=== PATIENT | female | born 1950 | race Caucasian/White ===

== ENCOUNTER → 2018-03-16 13:46 | Outpatient (CLI) | payer MEDICARE, SELFPAY ==
--- NOTE | 2018-03-16 13:48 | DI.ECHO.S_ITS ---
[facility] +---------+ : : 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 1) Moderately dilated left ventricle with severely reduced function (EF 25- 30%). 2) Mildly enlarged right ventricle wit moderately reduced function. 3) Severely dilated left atrium and moderately to severely dilated right atrium. 4) There is moderate tricuspid regurgitation. 5) The right ventricular systolic pressure is estimated at 48 mmHg assuming a right atrial pressure of 15 mm Hg. 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 7) No prior Echo available for comparison. Attending statement: I called the patient's listed phone number is [place] and got her voicemail (didn't leave a message). I then called Dr. Romy Sotomayor to convey the critical findings as above and recommended that the patient come to [facility] for further evaluation. Procedure: A two-dimensional transthoracic echocardiogram with color flow and Doppler was performed. The study quality was technically good. There is no prior echocardiogram noted for this patient. The patient was in atrial fibrillation with heart rates between 107-168 bpm during the exam. Left Ventricle: The left ventricle is moderately dilated. There is normal left ventricular wall thickness. The ejection fraction is estimated to be 25- 30%. Left ventricular systolic function is severely reduced. There is severe global hypokinesis of the left ventricle. Diastolic function could not be accurately assessed due to atrial fibrillation. Right Ventricle: The right ventricle is mildly dilated. Right ventricular systolic function is moderately reduced. Atria: The left atrium is severely dilated. The right atrium is moderate to severely dilated. Mitral Valve: The mitral valve is normal in structure and function. There is mild mitral regurgitation. Aortic Valve: The aortic valve is trileaflet. The aortic valve opens well. There is no aortic valve stenosis. No aortic regurgitation is present. Tricuspid Valve: The tricuspid valve leaflets are thin and pliable. There is moderate tricuspid regurgitation. The right ventricular systolic pressure is estimated at 48 mmHg assuming a right atrial pressure of 15 mm Hg. Pulmonic Valve: The pulmonic valve is not well seen, but is grossly normal. There is trace pulmonic regurgitation. Great Vessels: The aortic root is mildly dilated. The ascending aorta is at the upper limits of normal in size. The IVC is dilated (diameter is greater than 2.1 cm) and it collapses less than 50% with a sniff. This suggests a high right atrial pressure of 15 mm Hg. 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 Pericardium/ Pleura There is no pericardial effusion. There is no pleural effusion. MMode/2D Measurements & Calculations LVIDd: 6.1 cm Ao root diam: 4.1 cm LVIDs: 5.4 cm Aortic Jxn: 3.3 cm FS: 10.6 % asc Aorta Diam: 3.8 cm EPSS: 1.5 cm Ao Arch Diam (Prox Trans): 3.3 cm IVSd: 0.99 cm LVPWd: 1.00 cm LV murphy. diameter/BSA (cm/m^2): 3.0 LV sys. diameter/BSA (cm/m^2): 2.7 LA dimension: 5.7 cm RA long axis: 6.7 cm LA A2 area: 40.8 cm2 RA area: 27.3 cm2 LA A4 area: 40.9 cm2 RA vol: 94.9 ml LA length (vol): 7.2 cm RA : 46.2 ml/m2 LA vol: 196.7 ml IVC diam: 2.7 cm LA vol index: 95.8 ml/m2 RVDd major: 6.2 cm RVD1 (basal): 4.0 cm RVD2 (mid): 2.9 cm Doppler Measurements & Calculations Ao V2 max: 113.6 cm/sec MV P1/2t: 46.7 msec Ao V2 mean: 80.2 cm/sec MR ERO: 0.15 cm2 Ao max P.2 mmHg Ao mean P.9 mmHg Ao V2 VTI: 22.2 cm TR max apryl: 288.8 cm/sec MV V2 mean: 52.3 cm/sec TR max P.4 mmHg MV mean P.3 mmHg PA V2 max: 78.5 cm/sec MV V2 VTI: 11.3 cm PA V2 mean: 44.3 cm/sec PA mean P.0 mmHg PA Accel Time: 0.11 sec MV P1/2t max apryl: 82.7 cm/sec MR flow rate: 58.2 cm3/sec MVA(P1/2t): 4.7 cm2 MR PISA radius: 0.49 cm Reading Physician:03:49 PM
== END ==
PROVIDERS: PCP Family Medicine; Visit Provider Family Medicine
DX: I50.9 Heart failure, unspecified (principal); I48.91 Unspecified atrial fibrillation; I07.1 Rheumatic tricuspid insufficiency
CPT/HCPCS: 93306

== ENCOUNTER → 2018-03-29 11:26 | Outpatient (CLI) | payer MEDICARE, SELFPAY ==
[2018-03-29 12:32] LABS: Alanine Aminotransferase 139 IU/L (9-52); Albumin 3.3 g/dL (3.5-5.0); Albumin Globulin Ratio 1.4 (1.0-2.8); Alkaline Phosphatase 77 U/L (38-126); Aspartate Aminotransferase 83 IU/L (14-36); BUN Creatinine Ratio 23.8 (6-22); Bilirubin Total 0.9 mg/dL (0.2-1.3); Blood Urea Nitrogen 19 mg/dL (7-17); Calcium 9.1 mg/dL (8.4-10.2); Carbon Dioxide 27 mmol/L (22-32); Chloride 105 mmol/L (98-107); Cholesterol 129 mg/dL (140-199); Estimated Glomerular Filt Rate > 60.0 mL/min (>60); Globulin 2.4 g/dL (1.7-4.1); Glucose 90 mg/dL (80-110); HDL Cholesterol 45 mg/dL (40-60); HEMOLYSIS 15 (0-50); LDL Cholesterol Calculated 62 mg/dL (<100); Potassium 4.3 mmol/L (3.4-5.1); Sodium 142 mmol/L (137-145); Total Protein 5.7 g/dL (6.3-8.2); Triglycerides 111 mg/dL (35-150)
== END ==
PROVIDERS: PCP Family Medicine; Visit Provider Internal Medicine Cardiovascular Disease
DX: I48.1 Persistent atrial fibrillation (principal); I49.3 Ventricular premature depolarization
CPT/HCPCS: 36415; 80053; 80061; 83880

== ENCOUNTER → 2018-04-19 11:47 | Outpatient (CLI) | payer MEDICARE, SELFPAY ==
--- NOTE | 2018-04-19 11:49 | DI.RAD.S_ITS ---
PROCEDURE: XR CHEST 2V INDICATIONS: Persistant cough - possible pneumonia TECHNIQUE: 2 views of the chest were acquired. COMPARISON: [facility], , CHEST 2 VIEW, 01/23/2018, 8:24. [facility], , CHEST FOR PICC PLACEMENT, 12/17/2012, 16:07. FINDINGS: Surgical changes and devices: None. Lungs and pleura: No pleural effusions or pneumothorax. Lungs are clear. Mediastinum: Mediastinal contours are normal. Heart size is at the upper limits of normal but the patient is in a relatively lordotic positioning. Bones and chest wall: No suspicious bony abnormalities. Soft tissues appear unremarkable. IMPRESSION: No pneumonia found. Large body habitus, relative lordotic positioning, heart size at the upper limits of normal. Dictated by: Joe Breen M.D. on 04/19/2018 at 12:08 Approved by: Joe Breen M.D. on 04/19/2018 at 12:08
== END ==
PROVIDERS: PCP Family Medicine; Visit Provider Physician Assistant
DX: R05 Cough (principal); R06.00 Dyspnea, unspecified
CPT/HCPCS: 71046

== ENCOUNTER → 2018-05-03 12:44 | Outpatient (CLI) | payer MEDICARE, SELFPAY | PROVIDERS: PCP Family Medicine; Visit Provider Physician Assistant | DX: R05 Cough (principal); R06.00 Dyspnea, unspecified; R79.89 Other specified abnormal findings of blood chemistry | CPT/HCPCS: 36415; 83880 ==

== ENCOUNTER 2018-05-10 07:29 | Emergency (ER) | payer MEDICARE, SELFPAY ==
--- NOTE | 2018-05-10 07:36 | ED_ITS ---
HPI - SOB/Dyspnea General Chief Complaint: Shortness of Breath/Dyspnea Stated Complaint: SOB Time Seen by Provider: 05/10/18 07:32 Source: patient Mode of arrival: ambulatory Limitations: no limitations History of Present Illness 67-year-old female with a known history of atrial fibrillation currently on Coumadin also history of congestive heart failure which she states has an ejection fraction of 20-25% here for evaluation of shortness of breath. Patient states that she occasionally ( [place] weekly if not daily) has episodes where she gets short of breath that last only a few minutes. She denies any other symptoms at the time of these events. 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 She states that today she had 1 of these episodes this morning after she walked into the bathroom. She states she normally just sits down and the symptoms go away within a few minutes. At the time my evaluation she denied any symptoms. She states she was not going to come into the emergency department except that she was told to come in if the symptoms ever reoccurred. Related Data Home Medications Medication Instructions Recorded Confirmed lisinopril 2.5 mg tablet 2.5 mg PO DAILY 03/28/18 05/03/18 magnesium oxide 400 mg tablet See Label Instructions PO DAILY 03/28/18 05/03/18 tab metoprolol succinate ER 100 mg 100 mg PO DAILY 03/28/18 05/03/18 tablet,extended release 24 hr spironolactone 25 mg tablet 25 mg PO DAILY 03/28/18 05/03/18 warfarin 5 mg tablet See Label Instructions PO DAILY 03/28/18 05/03/18 Previous Rx's Medication Instructions Recorded furosemide 20 mg tablet 20 mg PO DAILY #90 tab 03/05/18 albuterol sulfate HFA 90 2 puff INHALATION Q4-6H PRN #18 04/19/18 mcg/actuation aerosol inhaler gram fluticasone 110 mcg/actuation HFA 1 puff INHALATION BID #12 gram 04/19/18 aerosol inhaler doxycycline monohydrate 100 mg 100 mg PO BID #20 tab 04/30/18 tablet Allergies Allergy/AdvReac Type Severity Reaction Status Date / Time Penicillins [PENICILLINS] Allergy Severe HIVES AND Verified 05/03/18 12:12 COULD NOT BREATHE Sulfa (Sulfonamide Allergy Mild HIVES Verified 05/03/18 12:12 Antibiotics) [SULFA (SULFONAMIDE ANTIBIOTICS)] vancomycin [VANCOMYCIN] AdvReac Intermediate bottom of Verified 05/03/18 12:12 feet red and rash Review of Systems Constitutional Denies chills, Denies fatigue and Denies fever(s) ENT Ears, Nose, Mouth, and Throat: Denies vertigo and Denies dizziness Cardiovascular Denies chest pain, Denies syncope, Denies rapid heart rate, Denies edema, Denies irregular heart rhythm, Denies leg edema, Denies lightheadedness, Denies palpitations and Reports dyspnea Respiratory Denies chest congestion, Denies cough, Reports dyspnea, Denies stridor and Denies wheezing Gastrointestinal Gastrointestinal: Denies nausea and Denies vomiting Musculoskeletal Denies myalgias and Denies arthralgias Integumentary/Breasts Denies lesions and Denies rash Neurologic Denies behavioral changes, Denies vertigo, Denies dizziness and Denies syncope Psychiatric Denies behavioral changes Endocrine Denies fatigue and Denies palpitations Hematologic/Lymphatic Denies easy bleeding and Denies easy bruising Comments: on Coumadin Allergic/Immunologic Denies wheezing [facility] Medical History Back pain (Resolved 10/2012) Colon polyps (Resolved Unknown) Diverticulosis of colon (Resolved Unknown) Osteomyelitis (Resolved ) Surgical History Hx of hysterectomy (Resolved Unknown) Social History Smoking Status: Former smoker second hand exposure: No alcohol intake: current (single malt scotch once in a while.) substance use type: does not use Exam Initial Vital Signs Initial Vital Signs: Vital Signs Temperature 97.5 F L 05/10/18 07:37 Pulse Rate 60 05/10/18 07:37 Respiratory Rate 18 05/10/18 07:37 Blood Pressure 116/72 05/10/18 07:37 Pulse Oximetry 96 05/10/18 07:37 Const General: cooperative, healthy appearing, comfortable, well developed, well groomed and No acute distress Orientation: alert, awake and oriented x3 HENMT Head: normal to inspection and normocephalic Resp Effort & Inspection: normal respiratory effort Auscultation: clear to auscultation bilaterally Cardio Rate: regular rate Rhythm: abnormal rhythm irregularly irregular Pulses: radial pulses present GI Inspection: normal to inspection and non-distended Palpation: soft, No firm and No tender Skin Lesions: no lesions Rashes: no rashes Neuro General: alert, awake and oriented x3 Cognition: normal cognition Speech: speech normal Gait: normal gait Motor: muscle tone normal throughout Sensory Exam: no sensory deficits noted Extrem General: normal to inspection, capillary refill normal and no pedal edema Psych Appearance: grossly normal Course Orders Ordered: ED Orders 05/10/18 07:35 EKG-12 Lead Stat Vital Signs - 8 hr 05/10/18 07:37 Temperature 97.5 F L Pulse Rate 60 Respiratory Rate 18 Blood Pressure 116/72 Pulse Oximetry 96 MDM - SOB/Dyspnea ECG Data Attestation: I personally reviewed and interpreted this ECG as follows: Prior ECG tracings: available for review Interpretation: EKG dated January 2018 sinus rhythm with frequent PVCs and bigeminy pattern EKG dated 10 May 2018 atrial fibrillation ventricular rate of 93 Frequent PVCs LVH No ST T wave changes MDM Narrative Medical decision making narrative: at the time of my evaluation patient was asymptomatic. She states that her shortness of breath today was a fairly sudden onset with a fairly sudden resolution. She denied any other symptoms associated with the shortness of breath. She states she has had this for some time now she states that her symptoms today were different from the cough that she has been seeing her primary care doctor for over the past month. She states that earlier this week she had an INR drawn and it was elevated. She states that her primary doctor thought that this was because the doxycycline she was on. She has stopped her Coumadin for the past couple days with the plan to restarted at a half dose tomorrow and then a repeat INR drawn on Monday. This is already scheduled. patient is clinically not in heart failure. She is in atrial fibrillation but his rate controlled on her EKG today. She states that she has been in atrial fibrillation and that is why she is on the Coumadin. She is taking her antibiotics. Patient is on Lasix at home as well and also metoprolol. Had a long discussion with the patient regarding her symptoms today. We did discuss the potential read drawing the INR today to see if she needs to hold her Coumadin longer. She opted to wait until Monday to have this redrawn. She states that she would rather not have any labs or any further workup done because she feels normal she states that she is only here today because she was told that if she had the symptoms again she needed to come to the emergency department. We did discuss that she should be taking her pulse when she is having the shortness of breath to make sure that her heart rate is not extremely elevated At the time of her shortness of breath she was instructed she needs to contact her primary doctor. She was given return precautions. She expressed understanding and agreement with plan. Discharge Plan Departure Patient Disposition: Home, Self-Care Clinical Impression: Shortness of breath, Atrial fibrillation, Heart failure Discharge Date/Time: 05/10/18 08:38 Interventions: ED Discharge Assessment Last Done: 05/10/18 08:36 Instructions: DI for Shortness of Breath Activity Restrictions/Additional Instructions: continue all of your medications as directed. Make sure you keep your appointment on Monday for a redraw all of your Coumadin levels. Contact your primary care doctor for a follow-up. Return to the emergency department for any new symptoms, worsening symptoms, shortness of breath that is associated with chest pain or dizziness or any other concerning symptoms. Prescriptions: No Action furosemide [Lasix] 20 mg tablet 20 mg PO DAILY Qty: 90 RF: 0 albuterol sulfate 90 mcg/actuation HFA aerosol inhaler 2 puff INHALATION Q4-6H PRN (Reason: shortness of breath) Qty: 18 RF: 0 fluticasone [Flovent HFA] 110 mcg/actuation HFA aerosol inhaler 1 puff INHALATION BID Qty: 12 RF: 0 lisinopril 2.5 mg tablet 2.5 mg PO DAILY RF: 0 magnesium oxide 400 mg tablet See Patient Comments PO DAILY RF: 0 metoprolol succinate 100 mg tablet extended release 24 hr 100 mg PO DAILY RF: 0 spironolactone 25 mg tablet 25 mg PO DAILY RF: 0 warfarin 5 mg tablet See Patient Comments PO DAILY RF: 0 doxycycline monohydrate 100 mg tablet 100 mg PO BID Qty: 20 RF: 0
[2018-05-10 07:37] VITALS: BP 116/72; PULSE 60; RESP 18; TEMP 36.4; O2SAT 96
== END 2018-05-10 08:38 | disposition home or self-care (01) ==
PROVIDERS: Emergency Provider Emergency Medicine; Family Provider Family Medicine; PCP Family Medicine
DX: I48.91 Unspecified atrial fibrillation (principal); I50.9 Heart failure, unspecified; R06.02 Shortness of breath
CPT/HCPCS: 93005; 99282; 99283

== ENCOUNTER → 2018-07-30 10:13 | Outpatient (CLI) | payer MEDICARE, SELFPAY ==
[2018-07-30 10:57] LABS: Add Manual Diff / Slide Review NO; Basophils Percent Auto 0.5 % (0-2); Eosinophils Percent Auto 1.3 % (2-4); Hematocrit 47.4 % (36-46); Hemoglobin 15.8 g/dL (12.0-16.0); Lymphocytes Percent Auto 24.2 % (25-40); Mean Corpuscular HGB Conc 33.3 % (30-36); Mean Corpuscular Hemoglobin 32.1 PG (26-34); Mean Corpuscular Volume 96.5 fL (80-100); Monocytes Percent Auto 8.2 % (3-14); Neutrophils Absolute Auto 4300 /uL (3000-5900); Neutrophils Percent Auto 65.8 % (50-75); Platelet Count 171 X10^3/uL (150-400); Red Blood Cell Count 4.91 X10^6/uL (4.0-5.2); Red Cell Distribution Width 15.2 % (11.6-14.8); White Blood Cell Count 6.5 X10^3/uL (4.5-11.0)
[2018-07-30 11:24] LABS: Blood Urea Nitrogen 25 mg/dL (7-17); Calcium 9.3 mg/dL (8.4-10.2); Carbon Dioxide 30 mmol/L (22-32); Chloride 105 mmol/L (98-107); Estimated Glomerular Filt Rate 55.3 mL/min (>60); Glucose 102 mg/dL (80-110); HEMOLYSIS < 15 (0-50); Potassium 4.6 mmol/L (3.4-5.1); Sodium 144 mmol/L (137-145)
== END ==
PROVIDERS: Family Provider Family Medicine; PCP Family Medicine; Visit Provider Internal Medicine Cardiovascular Disease
DX: I71.4 Abdominal aortic aneurysm, without rupture (principal); I50.22 Chronic systolic (congestive) heart failure
CPT/HCPCS: 36415; 80048; 85025

== ENCOUNTER → 2018-08-09 09:40 | Outpatient (CLI) | payer MEDICARE, SELFPAY ==
--- NOTE | 2018-08-09 12:55 | DI.ECHO.S_ITS ---
Echocardiogram Report + + :Name: JANENE DAVILA Study Date: 08/09/2018 Height: 67 in : :[facility] Exam Location: [facility] Weight: 186 lb : : Gender: Female BSA: 2.0 m2 : :: 1950 Age: 67 yrs BP: 110/80 mmHg: :Reason For Study: Chronic systolic heart failure : :Ordering Physician: Víctor Dubon : :Jes Performed By: Kathleen Page : + + Interpretation Summary 1) Severely dilated left ventricle with severely reduced function (EF 20-25%). 2) Mildly enlarged right ventricle with moderately reduced function. 3) Severe biatrial enlargement. 4) No significant valvular abnormalities. 5) Compared to the Echo done 03/16/2018, right sided filling pressures are normal on this study. Procedure: A two-dimensional transthoracic echocardiogram with color flow and Doppler was performed. The study quality was technically good. Comparison is made with the echocardiogram of 03/16/2018. The patient was in atrial fibrillation with heart rates between 68-110 bpm during the exam. Left Ventricle: The left ventricle is severely dilated. There is normal left ventricular wall thickness. Left ventricular systolic function is severely reduced. The ejection fraction is estimated to be 20-25%. There is severe global hypokinesis of the left ventricle. Diastolic function could not be accurately assessed due to atrial fibrillation. Right Ventricle: The right ventricle is mildly dilated. Right ventricular systolic function is moderately reduced. Atria: Both atria are severely dilated. There is no Doppler evidence for an interatrial shunt. Mitral Valve: The mitral valve is normal in structure and function. There is mild mitral regurgitation. Aortic Valve: The aortic valve is trileaflet. The aortic valve opens well. There is trace aortic regurgitation. Tricuspid Valve: The tricuspid valve is normal in structure and function. There is mild tricuspid regurgitation. The right ventricular systolic pressure is estimated to be at least 35 mmHg based on an estimated right atrial pressure of 8 mm Hg. Pulmonic Valve: The pulmonic valve is not well visualized. There is a trace or physiologic amount of pulmonic regurgitation. Great Vessels: The aortic root is normal size. The ascending aorta is at the upper limits of normal in size. The pulmonary is not well visualized. The IVC is dilated (diameter is greater than 2.1 cm) yet it collapses greater than 50% with a sniff. This suggests a right atrial pressure of 8 mm Hg. Pericardium/ Pleura There is a trivial pericardial effusion noted. MMode/2D Measurements & Calculations LVIDd: 6.4 cm Ao root diam: 3.9 cm LVIDs: 5.6 cm asc Aorta Diam: 3.7 cm FS: 12.4 % EPSS: 1.4 cm IVSd: 0.79 cm LVPWd: 0.84 cm LV murphy. diameter/BSA (cm/m^2): 3.3 LV sys. diameter/BSA (cm/m^2): 2.9 LA A2 area: 45.1 cm2 RA long axis: 6.2 cm LA A4 area: 39.6 cm2 RA area: 31.3 cm2 LA length (vol): 7.8 cm RA vol: 134.2 ml LA vol: 195.1 ml RA : 68.5 ml/m2 LA vol index: 99.5 ml/m2 IVC diam: 2.3 cm RVD1 (basal): 4.4 cm Doppler Measurements & Calculations Ao V2 max: 94.4 cm/sec LVOT Max Reuben: 62.8 cm/sec Ao V2 mean: 74.8 cm/sec LV V1 max P.6 mmHg Ao max P.6 mmHg LV V1 VTI: 10.7 cm Ao mean P.4 mmHg sev ratio: 0.59 Ao V2 VTI: 18.1 cm MV E max reuben: 56.9 cm/sec TR max reuben: 261.6 cm/sec Med Peak E' Reuben: 5.1 cm/sec TR max P.4 mmHg E/E' med: 11.1 PA V2 max: 38.4 cm/sec PA V2 mean: 27.9 cm/sec PA mean P.34 mmHg PA Accel Time: 0.11 sec _ Reading Physician:12:55 PM
== END ==
PROVIDERS: PCP Family Medicine; Visit Provider Internal Medicine Cardiovascular Disease
DX: I08.1 Rheumatic disorders of both mitral and tricuspid valves (principal); I50.22 Chronic systolic (congestive) heart failure
CPT/HCPCS: 93306

== ENCOUNTER → 2019-04-22 10:23 | Outpatient (CLI) | payer MEDICARE, SELFPAY ==
[2019-04-22 11:00] LABS: Add Manual Diff / Slide Review NO; Basophils Absolute Auto 0 /uL (0-100); Basophils Percent Auto 0.9 % (0-2); Eosinophils Absolute Auto 100 /uL (0-450); Eosinophils Percent Auto 1.8 % (2-4); Hematocrit 46.5 % (36-46); Hemoglobin 15.8 g/dL (12.0-16.0); Lymphocytes Absolute Auto 1700 /uL (1100-4500); Lymphocytes Percent Auto 32.3 % (25-40); Mean Corpuscular HGB Conc 34.1 % (30-36); Mean Corpuscular Hemoglobin 33.3 PG (26-34); Mean Corpuscular Volume 97.9 fL (80-100); Monocytes Absolute Auto 500 /uL (0-900); Monocytes Percent Auto 10.4 % (3-14); Neutrophils Absolute Auto 2800 /uL (1500-7000); Neutrophils Percent Auto 54.6 % (50-75); Platelet Count 195 X10^3/uL (150-400); Red Blood Cell Count 4.75 X10^6/uL (4.0-5.2); Red Cell Distribution Width 13.7 % (11.6-14.8); White Blood Cell Count 5.2 X10^3/uL (4.5-11.0)
[2019-04-22 11:27] LABS: BUN Creatinine Ratio 21.1 (6-22); Blood Urea Nitrogen 19 mg/dL (7-17); Calcium 9.3 mg/dL (8.4-10.2); Carbon Dioxide 28 mmol/L (22-32); Chloride 104 mmol/L (98-107); Cholesterol 177 mg/dL (140-199); Estimated Glomerular Filt Rate > 60.0 mL/min (>60); Glucose 102 mg/dL (80-110); HDL Cholesterol 75 mg/dL (40-60); HEMOLYSIS 33 (0-50); LDL Cholesterol Calculated 82 mg/dL (<100); Potassium 4.9 mmol/L (3.4-5.1); Sodium 139 mmol/L (137-145); Triglycerides 102 mg/dL (35-150)
== END ==
PROVIDERS: Family Provider Family Medicine; PCP Family Medicine; Visit Provider Internal Medicine Cardiovascular Disease
DX: Z00.00 Encounter for general adult medical examination without abnormal findings (principal); Z79.01 Long term (current) use of anticoagulants; I50.22 Chronic systolic (congestive) heart failure
CPT/HCPCS: 36415; 80048; 80061; 85025

== ENCOUNTER → 2019-06-24 12:43 | Outpatient (CLI) | payer MEDICARE, SELFPAY ==
--- NOTE | 2019-06-24 12:45 | DI.RAD.S_ITS ---
PROCEDURE: XR FOOT LT MIN 3V INDICATIONS: pain TECHNIQUE: 3 views of the foot were acquired. COMPARISON: None. FINDINGS: Bones: No fractures or dislocations. No suspicious bony lesions. Mild degenerative changes of the first and fifth interphalangeal joints and first metatarsophalangeal joint are noted. There is a small rounded calcific fragment projecting lateral to the second proximal interphalangeal joint on oblique view, which may be external to the patient or represent sequela of degenerative change. Soft tissues: No tibiotalar joint effusion. Achilles tendon appears normal. IMPRESSION: Mild degenerative changes of the left forefoot. No acute osseous abnormality of the left foot identified. Dictated by: Ever Wall M.D. on 06/24/2019 at 15:35 Approved by: Ever Wall M.D. on 06/24/2019 at 15:37
== END ==
PROVIDERS: PCP Family Medicine; Visit Provider Family Medicine
DX: M79.672 Pain in left foot (principal)
CPT/HCPCS: 73630

== ENCOUNTER → 2020-02-13 13:45 | Outpatient (CLI) | payer MEDICARE, SELFPAY ==
[2020-02-13 15:10] LABS: Add Manual Diff / Slide Review NO; Basophils Absolute Auto 100 /uL (0-100); Basophils Percent Auto 0.9 % (0-2); Eosinophils Absolute Auto 100 /uL (0-450); Eosinophils Percent Auto 1.9 % (2-4); Hematocrit 47.4 % (36-46); Hemoglobin 15.8 g/dL (12.0-16.0); Lymphocytes Absolute Auto 1700 /uL (1100-4500); Mean Corpuscular HGB Conc 33.4 % (30-36); Mean Corpuscular Hemoglobin 32.8 PG (26-34); Mean Corpuscular Volume 98.2 fL (80-100); Monocytes Absolute Auto 700 /uL (0-900); Monocytes Percent Auto 10.1 % (3-14); Neutrophils Absolute Auto 3900 /uL (1500-7000); Neutrophils Percent Auto 60.1 % (50-75); Platelet Count 204 X10^3/uL (150-400); Red Blood Cell Count 4.83 X10^6/uL (4.0-5.2); Red Cell Distribution Width 13.8 % (11.6-14.8); White Blood Cell Count 6.5 X10^3/uL (4.5-11.0)
[2020-02-13 15:48] LABS: Blood Urea Nitrogen 23 mg/dL (7-17); Calcium 9.3 mg/dL (8.4-10.2); Carbon Dioxide 29 mmol/L (22-32); Chloride 101 mmol/L (98-107); Glucose 131 mg/dL (80-110); HEMOLYSIS 21 (0-50); Potassium 4.1 mmol/L (3.4-5.1); Sodium 136 mmol/L (137-145)
== END ==
PROVIDERS: PCP Nurse Practitioner; Referring Provider Internal Medicine Cardiovascular Disease; Visit Provider Internal Medicine Cardiovascular Disease
DX: I50.22 Chronic systolic (congestive) heart failure (principal); Z79.01 Long term (current) use of anticoagulants
CPT/HCPCS: 36415; 80048; 85025

== ENCOUNTER → 2020-06-25 14:24 | Outpatient (CLI) | payer MEDICARE, SELFPAY ==
[2020-06-25 14:56] LABS: Alanine Aminotransferase 27 IU/L (<35); Albumin 4.4 g/dL (3.5-5.0); Albumin Globulin Ratio 1.6 (1.0-2.8); Alkaline Phosphatase 83 U/L (38-126); Aspartate Aminotransferase 33 IU/L (14-36); BUN Creatinine Ratio 23.1 (6-22); Bilirubin Total 1.7 mg/dL (0.2-1.3); Blood Urea Nitrogen 24 mg/dL (7-17); Calcium 9.5 mg/dL (8.4-10.2); Carbon Dioxide 25 mmol/L (22-32); Chloride 107 mmol/L (98-107); Cholesterol 180 mg/dL (140-199); Estimated Glomerular Filt Rate 52.5 mL/min (>60); Globulin 2.8 g/dL (1.7-4.1); Glucose 103 mg/dL (80-110); HDL Cholesterol 83 mg/dL (40-60); HEMOLYSIS < 15 (0-50); LDL Cholesterol Calculated 80 mg/dL (<100); Potassium 4.6 mmol/L (3.4-5.1); Sodium 138 mmol/L (137-145); Total Protein 7.2 g/dL (6.3-8.2); Triglycerides 86 mg/dL (35-150)
[2020-06-25 15:19] LABS: Free T3, Triiodothyronine Free 3.48 pg/mL (2.77-5.27); Free T4, Direct Thyroxine 1.48 ng/dL (0.78-2.19)
[2020-06-25 15:32] LABS: Thyroid Stimulating Hormone 2.13 uIU/mL (0.47-4.68)
[2020-06-25 20:00] LABS: Appearance Urine UA CLEAR; Bilirubin Urine UA NEGATIVE (NEGATIVE); Color Urine UA YELLOW; Glucose Urine UA NEGATIVE (Negative); Ketones Urine UA NEGATIVE (NEGATIVE); Leukocyte Esterase Urine UA NEGATIVE (NEGATIVE); Nitrite Urine UA NEGATIVE (Negative); Occult Blood Urine UA TRACE-INTACT (Negative); Protein Urine UA NEGATIVE (Negative); Urobilinogen Urine UA 0.2 E.U./dL (0.2)
[2020-06-25 20:09] LABS: Amorphous Sediment Urine 1+; Bacteria Urine Many (>30); Culture Indicated Urine Specimen Cultured; RBC Urine 0-1/HPF (0-5/HPF); Squamous Epithelial Cell Urine 5-10 /HPF (0-5/HPF); WBC Urine 5-10/HPF (0-5/HPF)
[2020-06-25 20:20] LABS: Creatinine Urine Random 70.9 mg/dL
[2020-06-25 20:25] LABS: Microalbumin Urine Random < 0.6 mg/dL (0-1.6)
== END ==
PROVIDERS: PCP Nurse Practitioner; Referring Provider Nurse Practitioner; Visit Provider Nurse Practitioner
DX: E78.5 Hyperlipidemia, unspecified (principal); I10 Essential (primary) hypertension; I48.91 Unspecified atrial fibrillation; I50.30 Unspecified diastolic (congestive) heart failure; R06.00 Dyspnea, unspecified; R06.01 Orthopnea; R06.02 Shortness of breath; Z79.899 Other long term (current) drug therapy; Z79.01 Long term (current) use of anticoagulants; R39.15 Urgency of urination
CPT/HCPCS: 36415; 80053; 80061; 81001; 82043; 82570; 84439; 84443; 84481; 87077; 87086; 87186

== ENCOUNTER → 2020-06-29 12:22 | Outpatient (CLI) | payer MEDICARE, SELFPAY ==
--- NOTE | 2020-06-29 12:25 | DI.RAD.S_ITS ---
PROCEDURE: XR CHEST 2V INDICATIONS: SOB with exertion TECHNIQUE: 2 views of the chest were acquired. COMPARISON: [facility], CT, CT ANGIO AORTA RUNOFF, 02/13/2020, 15:35. [facility], CR, XR CHEST 2V, 04/19/2018, 11:50. [facility], CR, CHEST 2 VIEW, 01/23/2018, 8:24. FINDINGS: Surgical changes and devices: None. Lungs and pleura: Lungs are clear. No pleural effusions or pneumothorax. Mediastinum: Mediastinal contours are normal. Heart size is globally moderately enlarged. Bones and chest wall: No suspicious bony abnormalities. Soft tissues appear unremarkable. IMPRESSION: Global cardiomegaly, no definite acute CHF at this time. Dictated by: Joe Breen M.D. on 06/29/2020 at 13:22 Approved by: Joe Breen M.D. on 06/29/2020 at 13:22
== END ==
PROVIDERS: PCP Nurse Practitioner; Referring Provider Nurse Practitioner; Visit Provider Nurse Practitioner
DX: R06.02 Shortness of breath (principal); I51.7 Cardiomegaly; I50.30 Unspecified diastolic (congestive) heart failure; R06.00 Dyspnea, unspecified; R06.01 Orthopnea
CPT/HCPCS: 71046

== ENCOUNTER 2020-09-26 14:03 | Emergency (ER) | payer MEDICARE, SELFPAY ==
[2020-09-26 14:11] VITALS: BP 146/88; PULSE 105; RESP 18; TEMP 36.9; O2SAT 98; BMI 34.1
[2020-09-26 15:09] LABS: Bacteria Urine Many (>30); Culture Indicated Urine Specimen Cultured; RBC Urine 1-5/HPF (0-5/HPF); Squamous Epithelial Cell Urine 10-30 /HPF (0-5/HPF); WBC Urine 1-5/HPF (0-5/HPF)
== END 2020-09-26 15:04 | disposition left against medical advice (07) ==
PROVIDERS: Emergency Provider Emergency Medicine; PCP Nurse Practitioner
DX: R29.818 Other symptoms and signs involving the nervous system (principal)
CPT/HCPCS: 81003; 81015; 87077; 87086; 87186; 99281

== ENCOUNTER 2020-09-27 10:36 | Emergency (ER) | payer MEDICARE, SELFPAY ==
[2020-09-27 10:45] VITALS: BP 140/68; PULSE 78; RESP 16; TEMP 36.7; O2SAT 96; BMI 34.1
--- NOTE | 2020-09-27 11:08 | ED_ITS ---
HPI - Neuro Symptoms/Deficit General Chief Complaint: Neuro Symptoms/Deficit Stated Complaint: States episodes difficulty operating basic functio Time Seen by Provider: 09/27/20 11:07 Source: patient Mode of arrival: Ambulatory Limitations: no limitations History of Present Illness HPI Narrative: 69-year-old woman with a history of atrial fibrillation on Coumadin, chronic dyspnea and known coronary artery disease presents today after noticing an episode yesterday afternoon with acute confusion. She was unable to figure out how to type on her keyboard the did not have any difficulty closing down all of her programs or talking with her friend. She had difficulty getting keys into her car but no difficulty with driving. She slept without any complications and isn't have any cognitive issues this morning but does note mild dysuria. Urinalysis from yesterday suggests a Gram-negative alex bladder infection and from June she grew out E coli that was pansensitive. On Anticoagulants: Yes (warfarin) Related Data Home Medications Medication Instructions Recorded Confirmed furosemide 40 mg tablet 40 mg PO DAILY 06/25/20 06/25/20 metoprolol succinate 100 mg 100 mg PO BID tab 06/25/20 06/25/20 tablet,extended release 24 hr Previous Rx's Medication Instructions Recorded Disabled parking permit #1 ea 09/17/18 warfarin 5 mg tablet 5 mg PO DAILY #90 tab 01/29/20 furosemide 20 mg tablet 20 mg PO DAILY #90 tab 05/25/20 lisinopril 2.5 mg tablet 2.5 mg PO DAILY #90 tab 05/25/20 spironolactone 25 mg tablet 12.5 mg PO DAILY #45 tab 05/25/20 magnesium oxide 400 mg PO DAILY #90 cap 07/13/20 cephalexin 500 mg PO TID #21 cap 09/27/20 Allergies Allergy/AdvReac Type Severity Reaction Status Date / Time Penicillins [PENICILLINS] Allergy Severe HIVES AND Verified 06/25/20 08:39 COULD NOT BREATHE Sulfa (Sulfonamide Allergy Mild HIVES Verified 06/25/20 08:39 Antibiotics) [SULFA (SULFONAMIDE ANTIBIOTICS)] bee venom protein (honey bee) Allergy swelling Verified 06/25/20 08:39 at site of sting vancomycin [VANCOMYCIN] AdvReac Intermediate bottom of Verified 06/25/20 08:39 feet red and rash Review of Systems Review of Systems Narrative: Pertinent positive and negative findings as per HPI Remainder of review of systems is otherwise unremarkable for Constitutional: Fevers, chills, weakness ENT: No sore throat, neck pain, ear pain CV: Chest pain, palpitations, dyspnea on exertion Respiratory: Cough, wheeze, dyspnea GI: Nausea, vomiting, diarrhea, : Dysuria, hematuria, flank pain MS: Muscle weakness, numbness, joint swelling or warmth Patient History Medical History Back pain (10/2012) Colon polyps (Unknown) Diastolic congestive heart failure Diverticulosis of colon (Unknown) Elevated LFTs senior care current use of anticoagulant therapy Osteomyelitis () Post-menopausal osteoporosis Urinary urgency Surgical History Hx of hysterectomy (Unknown) Social History Smoking Status: Former smoker second hand exposure: No alcohol intake: current substance use type: does not use Smoking Status: Former smoker alcohol intake frequency: holidays/special occasions only Substance Use Type: does not use Exam Narrative Exam Narrative: General: Healthy appearing, in no acute distress. Able to give a complete and coherent history. Well-nourished well-developed HEENT: Moist mucous membranes, normal sclera with reactive pupils, Neck: No JVD, supple Respiratory: Lungs are clear to auscultation, no wheezing no rales no rhonchi. Full and symmetrical air movement Cardiac: Regular rate and rhythm no murmurs no bruits Abdomen: Soft nontender good bowel tones, no flank pain Skin: Warm and dry, no rashes Neurologic: Grossly neurologically intact with no obvious asymmetries or abnormalities, NIH=0 Extremities: No trauma, well perfused Psych: Cooperative, appropriate insight and affect Initial Vital Signs Initial Vital Signs: Vital Signs Temperature 98.0 F 09/27/20 10:45 Pulse Rate 78 09/27/20 10:45 Respiratory Rate 16 09/27/20 10:45 Blood Pressure 140/68 09/27/20 10:45 Pulse Oximetry 96 09/27/20 10:45 Course Orders Ordered: ED Orders 09/27/20 11:59 Complete Blood Count AUTO DIFF Stat Comprehensive Metabolic Panel Stat Prothrombin Time INR Stat Hydromorphone HCl (Hydromorphone 0.5 Mg Inj) 0.5 mg IV Q15MIN PRN PRN Reason: Pain, Discontinued Medications Cephalexin HCl (Cephalexin 250 Mg Capsule) 500 mg PO NOW ONE Stop: 09/27/20 12:00 Last Admin: 09/27/20 12:32 Dose: 500 mg Documented by: MMINOR Vital Signs Vital signs: Vital Signs - 8 hr 09/27/20 10:45 Temperature 98.0 F Pulse Rate 78 Respiratory Rate 16 Blood Pressure 140/68 Pulse Oximetry 96 MDM - Neuro Symptoms/Deficit Medical Records Attestation: I reviewed the patient's medical records. Lab Data Result diagrams: 09/27/20 12:45 09/27/20 12:45 Labs: Lab Results 09/27/20 09/27/20 09/27/20 Range/Units 12:45 12:45 12:45 WBC 4.2 L (4.5-11.0) X10^3/uL RBC 4.95 (4.0-5.2) X10^6/uL Hgb 16.4 H (12.0-16.0) g/dL Hct 48.6 H (36-46) % MCV 98.1 (80-100) fL MCH 33.1 (26-34) PG MCHC 33.8 (30-36) % RDW 13.6 (11.6-14.8) % Plt Count 115 L (150-400) X10^3/uL Neut % (Auto) 56.5 (50-75) % Lymph % (Auto) 28.2 (25-40) % [place] % (Auto) 14.9 H (3-14) % Eos % (Auto) 0.0 L (2-4) % Baso % (Auto) 0.4 (0-2) % Neut # (Auto) 2400 (1029-6440) /uL Lymph # (Auto) 1200 (5062-5732) /uL [place] # (Auto) 600 (0-900) /uL Eos # (Auto) 0 (0-450) /uL Baso # (Auto) 0 (0-100) /uL PT 24.1 H (10.1-12.7) SECONDS INR 2.1 H (0.9-1.3) Sodium 138 (137-145) mmol/L Potassium 4.2 (3.4-5.1) mmol/L Chloride 101 (98-107) mmol/L Carbon Dioxide 33 H (22-32) mmol/L BUN 19 H (7-17) mg/dL Creatinine 0.88 (0.52-1.04) mg/dL Estimated GFR > 60.0 (>60) mL/min BUN/Creatinine Ratio 21.6 (6-22) Glucose 98 (80-110) mg/dL Calcium 9.0 (8.4-10.2) mg/dL Total Bilirubin 1.1 (0.2-1.3) mg/dL AST 41 H (14-36) IU/L ALT 32 (<35) IU/L Alkaline Phosphatase 68 (38-126) U/L Total Protein 7.5 (6.3-8.2) g/dL Albumin 4.3 (3.5-5.0) g/dL Globulin 3.2 (1.7-4.1) g/dL Albumin/Globulin Ratio 1.3 (1.0-2.8) MDM Narrative Medical decision making narrative: 69-year-old woman likely with UTI causing mild cognitive deficits. I do not suspect stroke or TIA at this point. Risk factors for such include her coronary artery disease as well as her atrial fibrillation for which she is anticoagulated. Based on prior urine cultures will send her home with a prescription for Keflex with instructions to return should she have any worsening symptoms or systemic symptoms developing. Discharge Plan Departure Patient Disposition: Home Clinical Impression: Acute UTI Instructions: DI for Urinary Tract Infection (UTI) Activity Restrictions/Additional Instructions: Thank you for coming in today Your blood work was reassuring. Your urinalysis from yesterday certainly suggests an infection and the cultures currently pending. Based on the infection you had in June I am going to suggest that you complete a 7 day course of Keflex/cephalexin. 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 If you have any additional confusion or acute neurologic symptoms (numbness, tingling, getting words out, understanding instructions etc.) you need to return to the emergency room for further evaluation. Similarly any fevers, flank pain, abdominal pain or signs that your bladder infection is worsening will also require return to the emergency department. I hope you feel better soon Prescriptions: New cephalexin 500 mg capsule 500 mg PO TID Qty: 21 RF: 0 No Action (DME) Disabled parking permit Qty: 1 RF: 0 warfarin 5 mg tablet 5 mg PO DAILY Qty: 90 RF: 2 magnesium oxide 400 mg magnesium capsule 400 mg PO DAILY Qty: 90 RF: 3 metoprolol succinate 100 mg tablet extended release 24 hr 100 mg PO BID RF: 0 furosemide 40 mg tablet 40 mg PO DAILY RF: 0 spironolactone 25 mg tablet 12.5 mg PO DAILY Qty: 45 RF: 3 lisinopril 2.5 mg tablet 2.5 mg PO DAILY Qty: 90 RF: 3 furosemide [Lasix] 20 mg tablet 20 mg PO DAILY Qty: 90 RF: 3 Referrals: Larisa Muller ARNP [Primary Care Provider] -
[2020-09-27] MEDS: cephALEXin 250 MG CAPSULE 500 MG PO (12:32)
[2020-09-27 13:18] LABS: Add Manual Diff / Slide Review NO; Basophils Absolute Auto 0 /uL (0-100); Basophils Percent Auto 0.4 % (0-2); Eosinophils Absolute Auto 0 /uL (0-450); Hematocrit 48.6 % (36-46); Hemoglobin 16.4 g/dL (12.0-16.0); INR 2.1 (0.9-1.3); Lymphocytes Absolute Auto 1200 /uL (1100-4500); Lymphocytes Percent Auto 28.2 % (25-40); Mean Corpuscular HGB Conc 33.8 % (30-36); Mean Corpuscular Hemoglobin 33.1 PG (26-34); Mean Corpuscular Volume 98.1 fL (80-100); Monocytes Absolute Auto 600 /uL (0-900); Monocytes Percent Auto 14.9 % (3-14); Neutrophils Absolute Auto 2400 /uL (1500-7000); Neutrophils Percent Auto 56.5 % (50-75); Platelet Count 115 X10^3/uL (150-400); Prothrombin Time 24.1 SECONDS (10.1-12.7); Red Blood Cell Count 4.95 X10^6/uL (4.0-5.2); Red Cell Distribution Width 13.6 % (11.6-14.8); White Blood Cell Count 4.2 X10^3/uL (4.5-11.0)
[2020-09-27 13:22] LABS: Alanine Aminotransferase 32 IU/L (<35); Albumin 4.3 g/dL (3.5-5.0); Albumin Globulin Ratio 1.3 (1.0-2.8); Alkaline Phosphatase 68 U/L (38-126); Aspartate Aminotransferase 41 IU/L (14-36); BUN Creatinine Ratio 21.6 (6-22); Bilirubin Total 1.1 mg/dL (0.2-1.3); Blood Urea Nitrogen 19 mg/dL (7-17); Carbon Dioxide 33 mmol/L (22-32); Chloride 101 mmol/L (98-107); Estimated Glomerular Filt Rate > 60.0 mL/min (>60); Globulin 3.2 g/dL (1.7-4.1); Glucose 98 mg/dL (80-110); HEMOLYSIS < 15 (0-50); Potassium 4.2 mmol/L (3.4-5.1); Sodium 138 mmol/L (137-145); Total Protein 7.5 g/dL (6.3-8.2)
[2020-09-27 14:58] VITALS: BP 126/82; PULSE 78; RESP 16; O2SAT 99
== END 2020-09-27 14:58 | disposition home or self-care (01) ==
PROVIDERS: Emergency Provider Emergency Medicine; PCP Nurse Practitioner
DX: N39.0 Urinary tract infection, site not specified (principal); R30.0 Dysuria; I48.91 Unspecified atrial fibrillation; Z79.01 Long term (current) use of anticoagulants; R06.00 Dyspnea, unspecified; I25.10 Atherosclerotic heart disease of native coronary artery without angina pectoris
CPT/HCPCS: 36415; 80053; 85025; 85610; 99283

== ENCOUNTER → 2020-12-21 11:10 | Outpatient (CLI) | payer MEDICARE, SELFPAY ==
[2020-12-21 11:22] LABS: Bacteria Urine None Seen; WBC Urine None Seen (0-5/HPF)
[2020-12-21 12:15] LABS: Appearance Urine UA CLEAR; Bilirubin Urine UA NEGATIVE (NEGATIVE); Color Urine UA YELLOW; Glucose Urine UA NEGATIVE (Negative); Ketones Urine UA NEGATIVE (NEGATIVE); Leukocyte Esterase Urine UA NEGATIVE (NEGATIVE); Nitrite Urine UA NEGATIVE (Negative); Occult Blood Urine UA TRACE-LYSED (Negative); Protein Urine UA NEGATIVE (Negative); Specific Gravity Urine UA 1.015 (1.000-1.035); Urobilinogen Urine UA 0.2 E.U./dL (0.2)
[2020-12-21 12:46] LABS: Culture Indicated Urine Cult Not Indicated; RBC Urine 0-1/HPF (0-5/HPF); Squamous Epithelial Cell Urine 0-1 /HPF (0-5/HPF)
== END ==
PROVIDERS: PCP Nurse Practitioner; Referring Provider Nurse Practitioner; Visit Provider Nurse Practitioner
DX: N39.0 Urinary tract infection, site not specified (principal)
CPT/HCPCS: 81001

== ENCOUNTER → 2021-03-08 09:05 | Outpatient (CLI) | payer MEDICARE, SELFPAY ==
[2021-03-08 09:28] LABS: Add Manual Diff / Slide Review NO; Basophils Absolute Auto 0 /uL (0-100); Basophils Percent Auto 0.7 % (0-2); Eosinophils Absolute Auto 100 /uL (0-450); Eosinophils Percent Auto 1.8 % (2-4); Hematocrit 45.5 % (36-46); Hemoglobin 15.4 g/dL (12.0-16.0); Lymphocytes Absolute Auto 1700 /uL (1100-4500); Lymphocytes Percent Auto 26.7 % (25-40); Mean Corpuscular HGB Conc 33.8 % (30-36); Mean Corpuscular Hemoglobin 32.6 PG (26-34); Mean Corpuscular Volume 96.3 fL (80-100); Monocytes Absolute Auto 600 /uL (0-900); Monocytes Percent Auto 9.5 % (3-14); Neutrophils Absolute Auto 3900 /uL (1500-7000); Neutrophils Percent Auto 61.3 % (50-75); Platelet Count 146 X10^3/uL (150-400); Red Blood Cell Count 4.72 X10^6/uL (4.0-5.2); White Blood Cell Count 6.4 X10^3/uL (4.5-11.0)
[2021-03-08 09:47] LABS: BUN Creatinine Ratio 23.3 (6-22); Blood Urea Nitrogen 21 mg/dL (7-17); Calcium 9.1 mg/dL (8.4-10.2); Carbon Dioxide 27 mmol/L (22-32); Chloride 104 mmol/L (98-107); Estimated Glomerular Filt Rate > 60.0 mL/min (>60); Glucose 102 mg/dL (80-110); HEMOLYSIS < 15 (0-50); Potassium 4.2 mmol/L (3.4-5.1); Sodium 138 mmol/L (137-145)
== END ==
PROVIDERS: PCP Nurse Practitioner; Referring Provider Internal Medicine Cardiovascular Disease; Visit Provider Internal Medicine Cardiovascular Disease
DX: I71.4 Abdominal aortic aneurysm, without rupture (principal)
CPT/HCPCS: 36415; 80048; 85025

== ENCOUNTER → 2021-10-04 10:31 | Outpatient (CLI) | payer MEDICARE, SELFPAY | PROVIDERS: PCP Nurse Practitioner; Referring Provider Internal Medicine Cardiovascular Disease; Visit Provider Internal Medicine Cardiovascular Disease | DX: I71.4 Abdominal aortic aneurysm, without rupture (principal); Z53.8 Procedure and treatment not carried out for other reasons ==

== ENCOUNTER → 2021-10-05 13:07 | Outpatient (CLI) | payer MEDICARE, SELFPAY ==
[2021-10-05 14:07] LABS: INR 2.3 (0.9-1.3); Prothrombin Time 26.5 SECONDS (10.1-12.7)
== END ==
PROVIDERS: PCP Nurse Practitioner; Referring Provider Registered Nurse Diabetes Educator; Visit Provider Registered Nurse Diabetes Educator
DX: Z79.01 Long term (current) use of anticoagulants (principal)
CPT/HCPCS: 36415; 85610

== ENCOUNTER → 2022-05-09 09:25 | Outpatient (CLI) | payer MEDICARE, SELFPAY ==
--- NOTE | 2022-05-09 | DI.US.S_ITS ---
PROCEDURE: US RETRO PERITONEAL LIMITED INDICATIONS: Abdominal aortic aneurysm, without rupture TECHNIQUE: Real time scanning was performed of the aorta and iliac arteries, with image documentation. COMPARISON: [facility], US, US AORTA IVC ILIAC BILATERAL, 02/10/2020, 8:58. [facility], CT, CT ANGIO ABDOMEN PELVIS, 08/03/2020, 11:47. [facility], US, US AORTA IVC ILIAC BILATERAL, 02/15/2021, 9:30. FINDINGS: Aorta: Comparisons are made to multiple prior studies. Current maximum diameter, measured as being in the mid abdominal aorta, is 5.4 x 4.4 cm. There is a moderate amount of thrombus present. Previous maximum diameter on the ultrasound of both 02/10/2020 and 02/15/2021 was also 5.4 x 4.[address] angiogram suggests that there is a dissection related to this aneurysm. On the CT, the measurements were 4.2 x 5.0 cm on 08/03/2020. Iliac arteries: Right common iliac artery measures 1.5 cm. Left common iliac artery measures 2.6 cm. IMPRESSION: 1. The aneurysmal dilatation of the infrarenal abdominal aorta does not appear to be significantly changed by ultrasound. 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 Comment: Consider repeat CT angiography to clearly define whether not there is any change in this aneurysm associated with probable dissection. Dictated by: Fernando Otto M.D. on 05/09/2022 at 13:03 Approved by: Fernando Otto M.D. on 05/09/2022 at 13:41
== END ==
PROVIDERS: PCP Nurse Practitioner; Referring Provider Internal Medicine Cardiovascular Disease; Visit Provider Internal Medicine Cardiovascular Disease
DX: I71.4 Abdominal aortic aneurysm, without rupture (principal)
CPT/HCPCS: 76775

== ENCOUNTER → 2022-05-30 09:48 | Outpatient (CLI) | payer MEDICARE, SELFPAY ==
[2022-05-30 11:40] LABS: INR 1.9 (0.9-1.3); Prothrombin Time 21.7 SECONDS (10.1-12.7)
== END ==
PROVIDERS: PCP Nurse Practitioner; Referring Provider Nurse Practitioner; Visit Provider Nurse Practitioner
DX: Z79.01 Long term (current) use of anticoagulants (principal)
CPT/HCPCS: 36415; 85610

== ENCOUNTER → 2022-06-28 12:42 | Outpatient (CLI) | payer MEDICARE, SELFPAY ==
[2022-06-28 13:39] LABS: Add Manual Diff / Slide Review NO; Basophils Absolute Auto 100 /uL (0-100); Basophils Percent Auto 0.8 % (0-2); Eosinophils Absolute Auto 0 /uL (0-450); Eosinophils Percent Auto 0.6 % (2-4); Hematocrit 44.8 % (36-46); Hemoglobin 15.4 g/dL (12.0-16.0); Lymphocytes Absolute Auto 1700 /uL (1100-4500); Lymphocytes Percent Auto 25.7 % (25-40); Mean Corpuscular HGB Conc 34.4 % (30-36); Mean Corpuscular Hemoglobin 33.5 PG (26-34); Mean Corpuscular Volume 97.3 fL (80-100); Monocytes Absolute Auto 500 /uL (0-900); Monocytes Percent Auto 7.9 % (3-14); Neutrophils Absolute Auto 4300 /uL (1500-7000); Platelet Count 160 X10^3/uL (150-400); Red Cell Distribution Width 13.8 % (11.6-14.8); White Blood Cell Count 6.6 X10^3/uL (4.5-11.0)
[2022-06-28 13:44] LABS: INR 3.2 (0.9-1.3); Prothrombin Time 37.5 SECONDS (10.1-12.7)
[2022-06-28 15:49] LABS: BUN Creatinine Ratio 18.2 (6-22); Blood Urea Nitrogen 18 mg/dL (7-17); Calcium 9.3 mg/dL (8.4-10.2); Carbon Dioxide 24 mmol/L (22-32); Chloride 103 mmol/L (98-107); Cholesterol 192 mg/dL (140-199); Estimated Glomerular Filt Rate > 60 mL/min (>60); Glucose 136 mg/dL (80-110); HDL Cholesterol 86 mg/dL (40-60); HEMOLYSIS < 15 (0-50); LDL Cholesterol Calculated 87 mg/dL (<100); Potassium 4.3 mmol/L (3.4-5.1); Sodium 138 mmol/L (137-145); Triglycerides 93 mg/dL (35-150)
== END ==
PROVIDERS: PCP Nurse Practitioner; Referring Provider Internal Medicine Cardiovascular Disease; Visit Provider Internal Medicine Cardiovascular Disease
DX: I71.4 Abdominal aortic aneurysm, without rupture (principal); Z79.01 Long term (current) use of anticoagulants; I48.19 Other persistent atrial fibrillation
CPT/HCPCS: 36415; 80048; 80061; 85025; 85610

== ENCOUNTER 2022-07-20 08:03 | Emergency (ER) | payer MEDICARE, SELFPAY ==
[2022-07-20] VITALS (12 sets, daily range): BP systolic 107–117; BP diastolic 75–90; PULSE 91–129; RESP 15–22; TEMP 37.1; O2SAT 96–99; BMI 34.0
--- NOTE | 2022-07-20 08:45 | DI.RAD.S_ITS ---
PROCEDURE: XR CHEST 1V INDICATIONS: shortness of breath TECHNIQUE: One view of the chest was acquired. COMPARISON: [facility], CR, XR CHEST 2V, 04/19/2018, 11:50. [facility], CR, XR CHEST 2 VIEWS, 03/17/2018, 15:10. [facility], CR, XR CHEST 2V, 06/29/2020, 11:29. FINDINGS: Surgical changes and devices: None. Lungs and pleura: Lungs are clear. No pleural effusions or pneumothorax. Mediastinum: Mediastinal contours appear normal. Heart size is at normal. Atherosclerotic calcification of the aortic arch is noted. Bones and chest wall: No suspicious bony lesions. Age-appropriate bony degenerative changes are seen, particularly involving the shoulders. Overlying soft tissues appear unremarkable. IMPRESSION: Portable chest study within normal for. Dictated by: Torres Jiménez M.D. on 07/20/2022 at 8:07 Approved by: Torres Jiménez M.D. on 07/20/2022 at 8:08
--- NOTE | 2022-07-20 08:46 | ED_ITS ---
HPI - Syncope General Chief Complaint: Dizziness Stated Complaint: Faint- keep trying to pass out since yesterday Time Seen by Provider: 07/20/22 08:44 Source: patient Mode of arrival: Ambulatory Limitations: no limitations History of Present Illness HPI narrative: This 71-year-old patient has a history of hypertension, CHF, and AFib. She had an episode yesterday, feeling like she might pass out. She felt foggy. She had no palpitations or chest pain. There was no dyspnea. She was diaphoretic. She felt her visual field was closing in. Symptoms resolved in a few minutes. She had no confusion, no focal numbness or weakness. She feels well now. She has no headache, sore throat, cough or GI symptoms. She has no fever chills. She is on diet, and continue to lose weight. She admits to both decreased oral intake, as well as decreased oral hydration. She is drinking primarily soda. She is making urine. Related Data Home Medications Medication Instructions Recorded Confirmed warfarin 5 mg tablet See Rx Instructions .Route .COMPLEX 05/02/22 05/30/22 Previous Rx's Medication Instructions Recorded Disabled parking permit #1 ea 09/17/18 Disabled Parking Permit See Rx Instructions .Route 01/11/21 .COMPLEX #1 unit lisinopril 2.5 mg tablet See Rx Instructions .Route 05/31/21 .COMPLEX #90 tabs spironolactone 25 mg tablet See Rx Instructions .Route 05/31/21 .COMPLEX #45 tabs magnesium oxide 400 mg (241.3 mg See Rx Instructions .Route 08/30/21 magnesium) tablet .COMPLEX #90 tabs metoprolol succinate 100 mg 150 mg .Route .COMPLEX #135 tabs 11/02/21 tablet,extended release 24 hr cyclobenzaprine 5 mg tablet 5 mg PO BID PRN muscle spasm #60 03/28/22 tabs meloxicam 15 mg tablet 15 mg PO DAILY #90 tabs 03/28/22 furosemide 20 mg tablet See Rx Instructions .Route 06/06/22 .COMPLEX #90 tabs Allergies Allergy/AdvReac Type Severity Reaction Status Date / Time Penicillins [PENICILLINS] Allergy Severe HIVES AND Verified 05/30/22 08:58 COULD NOT BREATHE Sulfa (Sulfonamide Allergy Mild HIVES Verified 05/30/22 08:58 Antibiotics) [SULFA (SULFONAMIDE ANTIBIOTICS)] bee venom protein (honey bee) Allergy swelling Verified 05/30/22 08:58 at site of sting cephalexin AdvReac Intermediate Diahrrea, Verified 05/30/22 08:58 sick to stomach, hard to tolerate vancomycin [VANCOMYCIN] AdvReac Intermediate bottom of Verified 05/30/22 08:58 feet red and rash Review of Systems Constitutional Constitutional: Reports as per HPI, Denies anorexia, Denies body ache(s), Denies chills, Denies fatigue, Denies fever(s), Denies headache(s) and Denies weakness Eyes Eyes: Denies change in vision ENT Ears, Nose, Mouth, and Throat: Denies halitosis, Denies vertigo, Denies d izziness, Denies facial pain, Denies headache(s) and Denies neck pain Cardiovascular Cardiovascular: Denies chest pain, Denies rapid heart rate, Denies irregular heart rhythm and Denies dyspnea Respiratory Respiratory: Denies cough and Denies dyspnea Gastrointestinal Gastrointestinal: Denies abdominal pain, Denies constipation and Denies nausea Genitourinary Genitourinary: Denies dysuria Musculoskeletal Musculoskeletal: Denies arthralgias, Denies back pain, Denies myalgias, Denies myalgias, Denies neck pain and Denies numbness Integumentary/Breasts Skin/Breast: Denies new lesions, Denies rash and Denies skin pain Neurologic Neurologic: Denies confusion, Denies vertigo, Denies dizziness, Denies headache(s), Denies memory loss, Denies numbness and Denies weakness Psychiatric Psychiatric: Denies confusion and Denies memory loss Endocrine Endocrine: Denies fatigue Patient History Medical History A-fib Back pain (10/2012) CHF exacerbation Colon polyps (Unknown) Diastolic congestive heart failure Diverticulosis of colon (Unknown) Elevated LFTs Lichen planus-like keratosis (LPLK) halfway current use of anticoagulant therapy Osteomyelitis (~2012) Post-menopausal osteoporosis Urinary urgency Surgical History Hx of hysterectomy (Unknown) Social History Smoking Status: Former smoker second hand exposure: No alcohol intake: current substance use type: does not use Smoking Status: Former smoker alcohol intake frequency: holidays/special occasions only Substance Use Type: does not use Exam Initial Vital Signs Initial Vital Signs: Vital Signs Pulse Rate 100 H 07/20/22 08:36 Pulse Oximetry 97 07/20/22 08:36 Const General: cooperative, healthy appearing, comfortable, well developed and well groomed [facility] Head: normocephalic and atraumatic Face and sinus: normal facial exam Mouth: oral mucosae normal Throat: posterior oropharynx normal Eyes General: Yes appearance normal, both eyes and all related structures Conjunctivae: conjunctivae normal Sclera: sclerae normal Pupils: PERRL EOM: EOM intact bilaterally Neck Neck: normal visual inspection Chest Chest: normal inspection of the chest Resp Effort & Inspection: normal respiratory effort Cardio Palpation: normal PMI Rate: regular rate Rhythm: regular rhythm Heart Sounds: S1 normal and S2 normal GI Inspection: normal to inspection and obesity Palpation: soft, No mass and No tender Auscultation: normal bowel sounds Rectal Exam: visual inspection normal, normal sphincter tone, heme negative stool and No mass Back/Spine/Pelvis Back: normal to inspection and No back tenderness Thoracic/Lumbar Spine: thoracic and lumbar spine normal to inspection Course Course Course Narrative: The patient is asymptomatic upon arrival. Specifically she has no signs or symptoms of GI bleeding. Her INR is 8.5. She is given vitamin K 10 mg p.o.. She is a patient for JOSE Muller. Her situation was discussed with Dr. Randhawa. Coumadin will be held, clinical arrange follow-up and decision making on anticoagulation. Orders Ordered: ED Orders 07/20/22 08:45 XR chest 1V Stat RT Consult Eval and Treat Now 07/20/22 08:49 EKG-12 Lead Stat 07/20/22 09:20 Urine Culture Stat Urine Microscopic Stat 07/20/22 09:25 COVID19 -Nasal RAPID/Pre-Proc Stat 07/20/22 09:28 Complete Blood Count AUTO DIFF Stat Comprehensive Metabolic Panel Stat Lactate (Lactic Acid) Stat NT-proBNP (BNP-Adult 18+) Stat Prothrombin Time INR Stat Discontinued Medications Phytonadione (Phytonadione (Vit K1) 5 Mg Tablet) 10 mg PO NOW ONE Stop: 07/20/22 11:24 Last Admin: 07/20/22 12:20 Dose: 10 mg Documented By: JOSE MIGUEL Vital Signs Vital signs: Vital Signs - 8 hr 07/20/22 08:40 07/20/22 12:28 07/20/22 08:36 Temperature 98.7 F Pulse Rate 110 H 101 H 100 H Respiratory Rate 16 18 Blood Pressure 113/75 116/90 Pulse Oximetry 99 97 Oxygen Delivery Method Room Air 07/20/22 09:17 07/20/22 09:20 07/20/22 09:20 Temperature Pulse Rate 129 H 99 H Respiratory Rate 22 Blood Pressure 107/77 Pulse Oximetry 96 99 Oxygen Delivery Method 07/20/22 09:30 07/20/22 09:30 07/20/22 10:00 Temperature Pulse Rate 103 H Respiratory Rate 16 Blood Pressure 114/75 114/79 Pulse Oximetry 98 Oxygen Delivery Method 07/20/22 10:00 07/20/22 10:32 07/20/22 10:33 Temperature Pulse Rate 91 H 115 H Respiratory Rate 19 15 Blood Pressure 112/84 Pulse Oximetry 97 97 Oxygen Delivery Method 07/20/22 10:33 07/20/22 10:45 07/20/22 10:45 Temperature Pulse Rate 113 H 94 H Respiratory Rate 18 15 Blood Pressure 117/81 Pulse Oximetry 97 97 Oxygen Delivery Method 07/20/22 12:24 07/20/22 12:25 07/20/22 12:25 Temperature Pulse Rate 107 H 99 H Respiratory Rate 16 16 Blood Pressure 116/90 Pulse Oximetry 99 98 Oxygen Delivery Method MDM - Syncope Lab Data Attestation: I reviewed the patient's lab results. Result diagrams: 07/20/22 09:28 07/20/22 09:28 Labs: Lab Results 07/20/22 07/20/22 07/20/22 Range/Units 09:20 09:25 09:28 WBC 8.2 (4.5-11.0) X10^3/uL RBC 4.27 (4.0-5.2) X10^6/uL Hgb 13.8 (12.0-16.0) g/dL Hct 41.6 (36-46) % MCV 97.4 (80-100) fL MCH 32.3 (26-34) PG MCHC 33.2 (30-36) % RDW 13.8 (11.6-14.8) % Plt Count 342 (150-400) X10^3/uL Neut % (Auto) 69.6 (50-75) % Lymph % (Auto) 18.2 L (25-40) % [place] % (Auto) 9.7 (3-14) % Eos % (Auto) 1.4 L (2-4) % Baso % (Auto) 1.1 (0-2) % Neut # (Auto) 5700 (4693-8221) /uL Lymph # (Auto) 1500 (1517-8185) /uL [place] # (Auto) 800 (0-900) /uL Eos # (Auto) 100 (0-450) /uL Baso # (Auto) 100 (0-100) /uL PT (10.1-12.7) SECONDS INR (0.9-1.3) Sodium (137-145) mmol/L Potassium (3.4-5.1) mmol/L Chloride (98-107) mmol/L Carbon Dioxide (22-32) mmol/L BUN (7-17) mg/dL Creatinine (0.52-1.04) mg/dL Estimated GFR (>60) mL/min BUN/Creatinine Ratio (6-22) Glucose (80-110) mg/dL Lactate (0.7-2.1) mmol/L Calcium (8.4-10.2) mg/dL Total Bilirubin (0.2-1.3) mg/dL AST (14-36) IU/L ALT (<35) IU/L Alkaline Phosphatase (38-126) U/L NT-Pro-B Natriuret Pep (<125) pg/mL Total Protein (6.3-8.2) g/dL Albumin (3.5-5.0) g/dL Globulin (1.7-4.1) g/dL Albumin/Globulin Ratio (1.0-2.8) Urine RBC 5-10/hpf H (0-5/HPF) Urine WBC 10-30/hpf H (0-5/HPF) Ur Squamous Epith Cells 1-5 /hpf (0-5/HPF) Urine Bacteria Many (>30) H (None) Ur Culture Indicated? Culture not indicate SARS-CoV-2 (PCR) Negative (Negative) 07/20/22 07/20/22 07/20/22 Range/Units 09:28 09:28 09:28 WBC (4.5-11.0) X10^3/uL RBC (4.0-5.2) X10^6/uL Hgb (12.0-16.0) g/dL Hct (36-46) % MCV (80-100) fL MCH (26-34) PG MCHC (30-36) % RDW (11.6-14.8) % Plt Count (150-400) X10^3/uL Neut % (Auto) (50-75) % Lymph % (Auto) (25-40) % [place] % (Auto) (3-14) % Eos % (Auto) (2-4) % Baso % (Auto) (0-2) % Neut # (Auto) (2120-8198) /uL Lymph # (Auto) (0098-2470) /uL [place] # (Auto) (0-900) /uL Eos # (Auto) (0-450) /uL Baso # (Auto) (0-100) /uL PT 99.7 H (10.1-12.7) SECONDS INR 8.5 H* (0.9-1.3) Sodium 137 (137-145) mmol/L Potassium 4.0 (3.4-5.1) mmol/L Chloride 99 (98-107) mmol/L Carbon Dioxide 30 (22-32) mmol/L BUN 17 (7-17) mg/dL Creatinine 1.08 H (0.52-1.04) mg/dL Estimated GFR 55 L (>60) mL/min BUN/Creatinine Ratio 15.7 (6-22) Glucose 119 H (80-110) mg/dL Lactate 1.2 (0.7-2.1) mmol/L Calcium 8.9 (8.4-10.2) mg/dL Total Bilirubin 0.7 (0.2-1.3) mg/dL AST 28 (14-36) IU/L ALT 21 (<35) IU/L Alkaline Phosphatase 64 (38-126) U/L NT-Pro-B Natriuret Pep 2600 H (<125) pg/mL Total Protein 6.8 (6.3-8.2) g/dL Albumin 3.6 (3.5-5.0) g/dL Globulin 3.2 (1.7-4.1) g/dL Albumin/Globulin Ratio 1.1 (1.0-2.8) Urine RBC (0-5/HPF) Urine WBC (0-5/HPF) Ur Squamous Epith Cells (0-5/HPF) Urine Bacteria (None) Ur Culture Indicated? SARS-CoV-2 (PCR) (Negative) Urine Dip Bedside Urine Glucose Negative Bedside Urine Bilirubin - Negative Bedside Urine Ketone - Negative Urine Specific [place] 1.015 Bedside Urine Occult Blood ++ Bedside Urine pH 6 Bedside Urine Protein - Negative Bedside Urine Urobilinogen - Negative Bedside Urine Nitrite + Positive Bedside Urine Leukocytes +++ 500 Esterase Imaging Data Chest x-ray: Radiologist's Impression: Normal ECG Data Attestation: I personally reviewed and interpreted this ECG as follows: (AFib rate 101 beats per minute. Low voltage QRS. Incomplete RBBB. No acute ST elevation.) Discharge Plan Departure Patient Disposition: Home Clinical Impression: Anticoagulation excessive, Atrial fibrillation Instructions: DI for Atrial Fibrillation Activity Restrictions/Additional Instructions: Although it is preferred to be anticoagulated fib, you will have to stop the Coumadin until the your labs improved. The vitamin K will help, your numbers should be improved by tomorrow. Your clinic should contact you regarding lab testing, you should not restart Coumadin until your doctor gives you instructions for anticoagulation. Return here as needed. Prescriptions: No Action (DME) Disabled parking permit Qty: 1 0RF Dose Instruction: As directed Rx Instructions: As directed spironolactone 25 mg tablet See Rx Instructions .ROUTE .COMPLEX Qty: 45 3RF Dose Instruction: TAKE HALF A TABLET BY MOUTH DAILY Rx Instructions: TAKE HALF A TABLET BY MOUTH DAILY lisinopril 2.5 mg tablet See Rx Instructions .ROUTE .COMPLEX Qty: 90 3RF Dose Instruction: TAKE 1 TABLET BY MOUTH DAILY Rx Instructions: TAKE 1 TABLET BY MOUTH DAILY magnesium oxide 400 mg (241.3 mg magnesium) tablet See Rx Instructions .ROUTE .COMPLEX Qty: 90 3RF Dose Instruction: TAKE 1 TABLET BY MOUTH DAILY Rx Instructions: TAKE 1 TABLET BY MOUTH DAILY metoprolol succinate 100 mg tablet extended release 24 hr 150 mg .ROUTE .COMPLEX Qty: 135 0RF Rx Instructions: Take 1.5tabs by mouth by mouth daily, Take tab in the AM and 1/2 tab in PM meloxicam 15 mg tablet 15 mg PO DAILY Qty: 90 1RF cyclobenzaprine 5 mg tablet 5 mg PO BID PRN (Reason: muscle spasm) Qty: 60 2RF furosemide 20 mg tablet See Rx Instructions .ROUTE .COMPLEX Qty: 90 3RF Dose Instruction: TAKE 1 TABLET BY MOUTH DAILY Rx Instructions: TAKE 1 TABLET BY MOUTH DAILY warfarin 5 mg tablet See Rx Instructions .ROUTE .COMPLEX Dose Instruction: TAKE 1 TABLET BY MOUTH DAILY EXCEPT 1/2 TABLET ON MONDAY AND MONDAY Rx Instructions: 2.5mg on Monday, Monday and 5mg all other days, or as directed. Disabled Parking Permit See Rx Instructions .ROUTE .COMPLEX Qty: 1 0RF Rx Instructions: I find this patient to be medically disabled and qualify for disabled parking as indicated and signed on the accompanying disabled parking application for individuals. Referrals: Larisa Muller ARNP [Primary Care Provider] - Visit Report Forms: Patient Portal/API
[2022-07-20 09:35] LABS: Add Manual Diff / Slide Review NO; Basophils Absolute Auto 100 /uL (0-100); Basophils Percent Auto 1.1 % (0-2); Eosinophils Absolute Auto 100 /uL (0-450); Eosinophils Percent Auto 1.4 % (2-4); Hematocrit 41.6 % (36-46); Hemoglobin 13.8 g/dL (12.0-16.0); Lymphocytes Absolute Auto 1500 /uL (1100-4500); Lymphocytes Percent Auto 18.2 % (25-40); Mean Corpuscular HGB Conc 33.2 % (30-36); Mean Corpuscular Hemoglobin 32.3 PG (26-34); Mean Corpuscular Volume 97.4 fL (80-100); Monocytes Absolute Auto 800 /uL (0-900); Monocytes Percent Auto 9.7 % (3-14); Neutrophils Absolute Auto 5700 /uL (1500-7000); Neutrophils Percent Auto 69.6 % (50-75); Platelet Count 342 X10^3/uL (150-400); Red Blood Cell Count 4.27 X10^6/uL (4.0-5.2); Red Cell Distribution Width 13.8 % (11.6-14.8); White Blood Cell Count 8.2 X10^3/uL (4.5-11.0)
[2022-07-20 09:44] LABS: Bacteria Urine Many (>30); RBC Urine 5-10/HPF (0-5/HPF); Squamous Epithelial Cell Urine 1-5 /HPF (0-5/HPF); WBC Urine 10-30/HPF (0-5/HPF)
[2022-07-20 09:45] LABS: Alanine Aminotransferase 21 IU/L (<35); Albumin 3.6 g/dL (3.5-5.0); Albumin Globulin Ratio 1.1 (1.0-2.8); Alkaline Phosphatase 64 U/L (38-126); Aspartate Aminotransferase 28 IU/L (14-36); BUN Creatinine Ratio 15.7 (6-22); Bilirubin Total 0.7 mg/dL (0.2-1.3); Blood Urea Nitrogen 17 mg/dL (7-17); Calcium 8.9 mg/dL (8.4-10.2); Carbon Dioxide 30 mmol/L (22-32); Chloride 99 mmol/L (98-107); Estimated Glomerular Filt Rate 55 mL/min (>60); Globulin 3.2 g/dL (1.7-4.1); Glucose 119 mg/dL (80-110); HEMOLYSIS < 15 (0-50); Lactate (Lactic Acid) 1.2 mmol/L (0.7-2.1); Sodium 137 mmol/L (137-145); Total Protein 6.8 g/dL (6.3-8.2)
[2022-07-20 09:46] LABS: Prothrombin Time 99.7 SECONDS (10.1-12.7)
[2022-07-20 09:53] LABS: NT-proBNP (BNP-Adult 18+) 2600 pg/mL (<125)
[2022-07-20 09:54] LABS: INR 8.5 (0.9-1.3)
[2022-07-20 10:07] LABS: COVID19 -Nasal RAPID Negative (Negative)
[2022-07-20] MEDS: PHYTONADIONE (VIT K1) 5 MG TABLET 10 MG PO (12:20)
== END 2022-07-20 12:48 | disposition home or self-care (01) ==
PROVIDERS: Emergency Provider Emergency Medicine; PCP Nurse Practitioner
DX: I48.91 Unspecified atrial fibrillation (principal); Z79.01 Long term (current) use of anticoagulants; Z20.822 Contact with and (suspected) exposure to COVID-19
CPT/HCPCS: 36415; 71045; 80053; 81003; 81015; 83605; 83880; 85025; 85610; 87077; 87086; 87186; 87635; 93005; 99284; C9803

== ENCOUNTER → 2022-07-21 08:29 | Outpatient (CLI) | payer MEDICARE, SELFPAY ==
[2022-07-21 09:30] LABS: INR 2.6 (0.9-1.3); Prothrombin Time 30.4 SECONDS (10.1-12.7)
== END ==
PROVIDERS: Family Medicine; PCP Nurse Practitioner; Referring Provider Nurse Practitioner; Visit Provider Nurse Practitioner
DX: Z79.01 Long term (current) use of anticoagulants (principal)
CPT/HCPCS: 36415; 85610

== ENCOUNTER → 2022-07-25 08:31 | Outpatient (CLI) | payer MEDICARE, SELFPAY ==
[2022-07-25 09:44] LABS: INR 3.2 (0.9-1.3); Prothrombin Time 37.4 SECONDS (10.1-12.7)
== END ==
PROVIDERS: PCP Nurse Practitioner; Referring Provider Nurse Practitioner; Visit Provider Nurse Practitioner
DX: I48.91 Unspecified atrial fibrillation (principal); Z79.01 Long term (current) use of anticoagulants
CPT/HCPCS: 36415; 85610

== ENCOUNTER → 2022-08-16 12:34 | Outpatient (CLI) | payer MEDICARE, SELFPAY ==
[2022-08-16 13:08] LABS: INR 3.4 (0.9-1.3); Prothrombin Time 39.4 SECONDS (10.1-12.7)
== END ==
PROVIDERS: PCP Nurse Practitioner; Referring Provider Nurse Practitioner; Visit Provider Nurse Practitioner
DX: I48.91 Unspecified atrial fibrillation (principal); Z79.01 Long term (current) use of anticoagulants
CPT/HCPCS: 36415; 85610

== ENCOUNTER → 2022-08-29 09:49 | Outpatient (CLI) | payer MEDICARE, SELFPAY ==
[2022-08-29 11:36] LABS: INR 2.1 (0.9-1.3); Prothrombin Time 24.3 SECONDS (10.1-12.7)
== END ==
PROVIDERS: PCP Nurse Practitioner; Referring Provider Nurse Practitioner; Visit Provider Nurse Practitioner
DX: Z79.01 Long term (current) use of anticoagulants (principal); I48.91 Unspecified atrial fibrillation
CPT/HCPCS: 36415; 85610

== ENCOUNTER → 2022-09-13 07:26 | Outpatient (CLI) | payer MEDICARE, SELFPAY ==
[2022-09-13 09:47] LABS: INR 3.7 (0.9-1.3); Prothrombin Time 43.4 SECONDS (10.1-12.7)
== END ==
PROVIDERS: PCP Nurse Practitioner; Referring Provider Nurse Practitioner; Visit Provider Nurse Practitioner
DX: Z79.01 Long term (current) use of anticoagulants (principal); I48.91 Unspecified atrial fibrillation
CPT/HCPCS: 36415; 85610

== ENCOUNTER → 2022-09-26 08:33 | Outpatient (CLI) | payer MEDICARE, SELFPAY ==
[2022-09-26 09:45] LABS: INR 2.2 (0.9-1.3); Prothrombin Time 25.1 SECONDS (10.1-12.7)
== END ==
PROVIDERS: PCP Nurse Practitioner; Referring Provider Nurse Practitioner; Visit Provider Nurse Practitioner
DX: Z79.01 Long term (current) use of anticoagulants (principal); I48.91 Unspecified atrial fibrillation
CPT/HCPCS: 36415; 85610

== ENCOUNTER → 2022-10-12 07:27 | Outpatient (CLI) | payer MEDICARE, SELFPAY ==
[2022-10-12 08:19] LABS: INR 2.3 (0.9-1.3); Prothrombin Time 26.3 SECONDS (10.1-12.7)
[2022-10-12 13:37] LABS: Appearance Urine UA CLOUDY; Bilirubin Urine UA NEGATIVE (NEGATIVE); Color Urine UA YELLOW; Glucose Urine UA NEGATIVE (Negative); Ketones Urine UA NEGATIVE (NEGATIVE); Leukocyte Esterase Urine UA 2+ (NEGATIVE); Nitrite Urine UA POSITIVE (Negative); Occult Blood Urine UA 2+ (Negative); Protein Urine UA TRACE (Negative); Urobilinogen Urine UA 0.2 E.U./dL (0.2)
[2022-10-12 14:00] LABS: Bacteria Urine Many (>30); Culture Indicated Urine Specimen Cultured; RBC Urine 1-5/HPF (0-5/HPF); Squamous Epithelial Cell Urine 5-10 /HPF (0-5/HPF); WBC Urine 10-30/HPF (0-5/HPF)
== END ==
PROVIDERS: PCP Nurse Practitioner; Referring Provider Nurse Practitioner; Visit Provider Nurse Practitioner
DX: I48.91 Unspecified atrial fibrillation (principal); Z79.01 Long term (current) use of anticoagulants; N39.0 Urinary tract infection, site not specified
CPT/HCPCS: 36415; 81001; 85610; 87077; 87086; 87186

== ENCOUNTER → 2022-11-01 07:26 | Outpatient (CLI) | payer MEDICARE, SELFPAY ==
[2022-11-01 08:12] LABS: INR 1.4 (0.9-1.3); Prothrombin Time 16.1 SECONDS (10.1-12.7)
== END ==
PROVIDERS: PCP Nurse Practitioner; Referring Provider Nurse Practitioner; Visit Provider Nurse Practitioner
DX: Z79.01 Long term (current) use of anticoagulants (principal); I48.91 Unspecified atrial fibrillation
CPT/HCPCS: 36415; 85610

== ENCOUNTER → 2022-11-15 14:57 | Outpatient (CLI) | payer MEDICARE, SELFPAY ==
[2022-11-15 16:24] LABS: Prothrombin Time 22.6 SECONDS (10.1-12.7)
== END ==
PROVIDERS: PCP Nurse Practitioner; Referring Provider Student in an Organized Health Care Education/Training Program; Visit Provider Student in an Organized Health Care Education/Training Program
DX: I50.32 Chronic diastolic (congestive) heart failure (principal); Z79.01 Long term (current) use of anticoagulants
CPT/HCPCS: 36415; 85610

== ENCOUNTER → 2023-02-24 07:22 | Outpatient (CLI) | payer MEDICARE, SELFPAY ==
[2023-02-24 08:33] LABS: Add Manual Diff / Slide Review NO; Basophils Absolute Auto 100 /uL (0-100); Basophils Percent Auto 0.8 % (0-2); Eosinophils Absolute Auto 100 /uL (0-450); Eosinophils Percent Auto 1.7 % (2-4); Hematocrit 43.6 % (36-46); Hemoglobin 14.8 g/dL (12.0-16.0); Lymphocytes Absolute Auto 1600 /uL (1100-4500); Lymphocytes Percent Auto 25.8 % (25-40); Mean Corpuscular Hemoglobin 32.9 PG (26-34); Mean Corpuscular Volume 96.6 fL (80-100); Monocytes Absolute Auto 600 /uL (0-900); Monocytes Percent Auto 10.2 % (3-14); Neutrophils Absolute Auto 3800 /uL (1500-7000); Neutrophils Percent Auto 61.5 % (50-75); Platelet Count 177 X10^3/uL (150-400); Red Blood Cell Count 4.51 X10^6/uL (4.0-5.2); Red Cell Distribution Width 13.9 % (11.6-14.8); White Blood Cell Count 6.2 X10^3/uL (4.5-11.0)
[2023-02-24 08:49] LABS: Alanine Aminotransferase 27 IU/L (<35); Albumin Globulin Ratio 1.4 (1.0-2.8); Alkaline Phosphatase 86 U/L (38-126); Aspartate Aminotransferase 32 IU/L (14-36); BUN Creatinine Ratio 23.5 (6-22); Bilirubin Total 1.3 mg/dL (0.2-1.3); Blood Urea Nitrogen 24 mg/dL (7-17); Calcium 9.1 mg/dL (8.4-10.2); Carbon Dioxide 30 mmol/L (22-32); Chloride 102 mmol/L (98-107); Estimated Glomerular Filt Rate 58 mL/min (>60); Globulin 2.9 g/dL (1.7-4.1); Glucose 100 mg/dL (80-110); HEMOLYSIS < 15 (0-50); Potassium 4.6 mmol/L (3.4-5.1); Sodium 137 mmol/L (137-145); Total Protein 6.9 g/dL (6.3-8.2)
== END ==
PROVIDERS: Family Medicine; PCP Nurse Practitioner; Referring Provider Nurse Practitioner; Visit Provider Nurse Practitioner
DX: M25.569 Pain in unspecified knee (principal)
CPT/HCPCS: 36415; 80053; 84550; 85025

== ENCOUNTER → 2023-03-20 11:53 | Outpatient (CLI) | payer MEDICARE, SELFPAY ==
--- NOTE | 2023-03-20 11:53 | DI.US.S_ITS ---
PROCEDURE: US PERIPH VENOUS LOW EXTREM RT INDICATIONS: CALF PAIN AND CRAMPING TECHNIQUE: Real-time imaging, as well as color and pulse Doppler interrogation, were performed of the lower extremity deep veins from the inguinal ligament to the popliteal fossa. COMPARISON: None. FINDINGS: The common femoral, femoral and popliteal veins are normally compressible, and free of intraluminal thrombus. Color and pulse Doppler demonstrate normal phasic intraluminal flow. There is normal augmentation response to distal compression maneuver. Superior and anterior to the medial knee, there is a hypoechoic complex region with apparent adjacent vessels that measures 4 x 4.2 x 3 cm. Inferior/anterior to the medial knee, there is an additional fluid collection that measures 4.9 x 0.7 x 1.2 cm. Scanning is performed at the site of the puncture wound. No focal abnormalities can be seen at this site. IMPRESSION: Negative for deep venous thrombosis. Focal fluid collections can be seen along the medial knee, which have the appearance of hematoma or phlegmon. No moises drainable abscess is seen. Please consider short-term follow-up, if clinically appropriate. Dictated by: Torres Jiménez M.D. on 03/20/2023 at 12:41 Approved by: Torres Jiménez M.D. on 03/20/2023 at 12:44
== END ==
PROVIDERS: PCP Nurse Practitioner; Referring Provider Nurse Practitioner; Visit Provider Nurse Practitioner
DX: M79.661 Pain in right lower leg (principal)
CPT/HCPCS: 93971

== ENCOUNTER → 2023-03-28 07:26 | Outpatient (CLI) | payer MEDICARE, SELFPAY ==
[2023-03-28 07:52] LABS: Add Manual Diff / Slide Review NO; Basophils Absolute Auto 100 /uL (0-100); Basophils Percent Auto 1.1 % (0-2); Eosinophils Absolute Auto 100 /uL (0-450); Hemoglobin 14.9 g/dL (12.0-16.0); Lymphocytes Absolute Auto 1600 /uL (1100-4500); Lymphocytes Percent Auto 30.1 % (25-40); Mean Corpuscular HGB Conc 33.8 % (30-36); Mean Corpuscular Hemoglobin 32.8 PG (26-34); Mean Corpuscular Volume 97.1 fL (80-100); Monocytes Absolute Auto 500 /uL (0-900); Monocytes Percent Auto 8.8 % (3-14); Neutrophils Absolute Auto 3100 /uL (1500-7000); Platelet Count 165 X10^3/uL (150-400); Red Blood Cell Count 4.53 X10^6/uL (4.0-5.2); Red Cell Distribution Width 13.7 % (11.6-14.8); White Blood Cell Count 5.3 X10^3/uL (4.5-11.0)
== END ==
PROVIDERS: PCP Nurse Practitioner; Referring Provider Internal Medicine Cardiovascular Disease; Visit Provider Internal Medicine Cardiovascular Disease
DX: Z79.01 Long term (current) use of anticoagulants (principal)
CPT/HCPCS: 36415; 85025

== ENCOUNTER → 2023-04-17 08:46 | Outpatient (CLI) | payer MEDICARE, SELFPAY ==
--- NOTE | 2023-04-17 | DI.ECHO.S_ITS ---
[facility]---------+ [facility] +---------+ : : [address] : : : : [id number] : : : : Phone: [phone]+ Echocardiogram Report + + :Name: JANENE DAVILA Study Date: 04/17/2023 Height: 67.5 in: [facility] ReadingLocation: Weight: 206 lb : : Gender: Female BSA: 2.1 m2 : :: 1950 Age: 72 yrs BP: 111/77 mmHg: :Reason For Study: AAA/CHRONIC SYSTOLIC HEART FAILURE : :Ordering Physician: GABE, : :MONTSERRAT Performed By: Izabel Mckeon : :Referring: MONTSERRAT ANDRE : + + Interpretation Summary 1) Severely dilated left ventricle with moderately to severely reduced function (EF 30-35%). 2) The right ventricle is normal in size and function. 3) The left atrium is severely dilated. 4) There is mild to moderate mitral regurgitation. 5) Compared to the Echo done 08/09/2018, LVEF has imnproved from 20-25% to 30- 35% on this study. Procedure: A two-dimensional transthoracic echocardiogram with color flow and Doppler was performed. The study quality was technically adequate. Comparison is made with the echocardiogram of 08/09/2018. The patient was in atrial fibrillation with heart rates between 86-104 bpm during the exam. Left Ventricle: The left ventricle is severely dilated. There is normal left ventricular wall thickness. The ejection fraction is estimated to be 30-35%. There is moderate to severe global hypokinesis of the left ventricle. Diastolic function could not be accurately assessed due to atrial fibrillation. Right Ventricle: The right ventricle is normal in size and function. Atria: The left atrium is severely dilated. The right atrium is mild to moderately dilated. There is no Doppler evidence for an interatrial shunt. Mitral Valve: The mitral valve leaflets appear mildly thickened, but open well. There is mild to moderate mitral regurgitation. Aortic Valve: The aortic valve is trileaflet. The aortic valve opens well. There is no aortic valve stenosis. There is mild aortic regurgitation. Tricuspid Valve: The tricuspid valve leaflets are thin and pliable. There is mild tricuspid regurgitation. The right ventricular systolic pressure is estimated to be at least 31 mmHg based on an estimated right atrial pressure of 3 mm Hg. Pulmonic Valve: The pulmonic valve is not well visualized. There is no pulmonic valvular regurgitation. Great Vessels: The aortic root is normal size. The ascending aorta is mildly enlarged. The IVC is of normal diameter and collapses greater than 50% with a sniff. This suggests a low right atrial pressure of 3 mm Hg. Pericardium/ Pleura There is no pericardial effusion. There is no pleural effusion. MMode/2D Measurements & Calculations LVIDd: 6.4 cm LVOT diam: 2.4 cm LVIDs: 5.3 cm Ao root diam: 4.0 cm FS: 15.9 % asc Aorta Diam: 3.9 cm IVSd: 0.92 cm Ao Arch Diam (Prox Trans): 3.5 cm LVPWd: 0.76 cm LV murphy. diameter/BSA (cm/m^2): 3.1 LV sys. diameter/BSA (cm/m^2): 2.6 LA A2 area: 41.2 cm2 RA long axis: 7.0 cm LA A4 area: 37.3 cm2 RA area: 25.9 cm2 LA length (vol): 7.8 cm RA vol: 81.0 ml LA vol: 167.7 ml RA : 39.3 ml/m2 LA vol index: 81.4 ml/m2 IVC diam: 1.4 cm RVD1 (basal): 3.4 cm RVD2 (mid): 2.4 cm TAPSE: 2.2 cm Doppler Measurements & Calculations Ao V2 max: 82.5 cm/sec LVOT Max Reuben: 47.4 cm/sec Ao V2 mean: 62.8 cm/sec LV V1 max P.90 mmHg Ao max P.7 mmHg LV V1 VTI: 8.9 cm Ao mean P.7 mmHg TOYA(I,D): 3.1 cm2 Ao V2 VTI: 13.2 cm TOYA(V,D): 2.6 cm2 sev ratio: 0.67 TOYA indexed to BSA (cm^2/m^2): 1.5 MV E max reuben: 75.1 cm/sec TR max reuben: 263.7 cm/sec MV A max reuben: 2.5 cm/sec TR max P.8 mmHg MV E/A: 30.6 PA V2 max: 57.4 cm/sec Med Peak E' Reuben: 7.5 cm/sec PA V2 mean: 43.9 cm/sec E/E' med: 10.1 PA mean P.83 mmHg Lat Peak E' Reuben: 8.2 cm/sec PA pr(Accel): 43.0 mmHg E/E' lat: 9.1 E/e' average: 9.6 MV dec time: 0.11 sec SV(OT): 40.7 ml Reading Physician:04:14 PM
--- NOTE | 2023-04-17 | DI.US.S_ITS ---
PROCEDURE: US RETRO PERITONEAL LIMITED INDICATIONS: AAA TECHNIQUE: Real time scanning was performed of the aorta and iliac arteries, with image documentation. COMPARISON: [facility], , RETRO PERITONEAL LIMITED, 05/09/2022, 10:53. FINDINGS: Aorta: Proximal aortic diameter measures 2.1 cm. Mid-aorta measures 1.9 cm. Distal aortic diameter is 5.2 cm. A dissection plane is redemonstrated within the aneurysmal portion of the abdominal aorta. Intramural thrombus is present. Iliac arteries: Right common iliac artery measures 1.6 cm. Left common iliac artery measures 2.1 cm. IMPRESSION: 1. Fusiform aneurysmal dilatation of the distal abdominal aorta with a dissection plane redemonstrated. The lateral diameter of the aneurysm is 5.2 cm on the current study which is unchanged from the study dated May 09, 2022. Vascular surgery consultation recommended. 2. Intramural thrombus is redemonstrated. Dictated by: Tatiana Duran M.D. on 04/17/2023 at 15:04 Approved by: Tatiana Duran M.D. on 04/17/2023 at 15:07
== END ==
PROVIDERS: PCP Nurse Practitioner; Referring Provider Internal Medicine Cardiovascular Disease; Visit Provider Internal Medicine Cardiovascular Disease
DX: I71.40 Abdominal aortic aneurysm, without rupture, unspecified (principal)
CPT/HCPCS: 76775; 93306

== ENCOUNTER → 2023-07-17 09:33 | Outpatient (CLI) | payer MEDICARE, SELFPAY ==
--- NOTE | 2023-07-17 09:35 | DI.CT.S_ITS ---
PROCEDURE: CT ANGIO ABDOMEN PELVIS INDICATIONS: Infrarenal abdominal aortic aneurysm TECHNIQUE: After the administration of intravenous contrast, 2.5 mm thick sections acquired from the diaphragm to the symphysis. 10 mm maximum-intensity projection (MIP) reformats were then acquired. For radiation dose reduction, the following was used: automated exposure control. COMPARISON: [facility], CT, CT ANGIO ABDOMEN PELVIS, 08/03/2020, 11:47. FINDINGS: Image quality: Excellent. Aorta: The infrarenal aorta is tortuous. There is an infrarenal abdominal aortic aneurysm with dissection which begins at least 3 cm below the left renal artery. A saccular component of the aneurysm, best seen on coronal images measures 3.5 x 6.6 cm, similar to the prior study when it measured 3.5 x 7.6 cm. Maximal axial dimension of the aneurysm is 5.1 x 4.8 cm, slightly larger compared to the prior study when it measured 5.0 x 4.3 cm. There is flow into the aneurysmal sac/false lumen which supplies the left iliac artery. Mesenteric arteries: Celiac trunk, superior and inferior mesenteric arteries appear patent. Both renal arteries are patent. Right pelvic arteries: The right pelvic arteries are patent and are supplied by the true lumen. Left pelvic arteries: The left pelvic arteries are patent and are supplied by the false lumen. Extravascular soft tissues: Lung bases are clear. Heart size is normal. Liver is normal in size and enhancement. Gallbladder is normal. Biliary system is non dilated. Pancreas enhances normally. Spleen is normal in size and enhancement. No adrenal nodules. Kidneys are normal in size and enhancement, without hydronephrosis. Non opacified bowel loops are normal in wall thickness and caliber. There is diverticulosis without evidence of diverticulitis. No free fluid or air. No retroperitoneal or mesenteric adenopathy. No ventral hernias. No suspicious bony lesions. There are multilevel degenerative changes of the lumbar spine. No vertebral body compression fractures. Cardiac chambers are enlarged. There is a fat containing right inguinal hernia. IMPRESSION: 1. Infrarenal abdominal aortic aneurysm with aneurysmal sac with a maximal axial dimension of 5.1 x 4.8, unchanged compared to prior CT. 2. Flow into the right common iliac artery is via the true lumen and flow into the left common iliac artery is via the false lumen. Dictated by: Sinan Yen M.D. on 07/17/2023 at 11:50 Approved by: Sinan Yen M.D. on 07/17/2023 at 12:14
[2023-07-17 09:59] LABS: Estimated Glomerular Filt Rate > 60 mL/min (>60)
== END ==
PROVIDERS: Radiology Diagnostic Radiology; PCP Nurse Practitioner; Referring Provider Surgery; Visit Provider Surgery
DX: I71.43 Infrarenal abdominal aortic aneurysm, without rupture (principal)
CPT/HCPCS: 36415; 74174; 82565; Q9967

== ENCOUNTER → 2023-08-23 12:35 | Outpatient (CLI) | payer MEDICARE, SELFPAY ==
--- NOTE | 2023-08-23 12:39 | DI.RAD.S_ITS ---
PROCEDURE: XR KNEE RT 3V INDICATIONS: right knee pain and swelling TECHNIQUE: 3 views of the knee were acquired. COMPARISON: None. FINDINGS: Bones: No fractures or dislocations. Tricompartmental osteoarthritic changes. Mild tibiofemoral joint space narrowing and moderate patellofemoral joint space narrowing. Tricompartmental spurring is present. No suspicious bony lesions. Soft tissues: Small joint effusion. No suspicious soft tissue calcifications. IMPRESSION: Moderate osteoarthritic changes of the knee. Dictated by: Gm Fernandez M.D. on 08/23/2023 at 14:51 Approved by: Gm Fernandez M.D. on 08/23/2023 at 14:52
== END ==
PROVIDERS: PCP Nurse Practitioner; Referring Provider Nurse Practitioner; Visit Provider Nurse Practitioner
DX: M25.561 Pain in right knee (principal)
CPT/HCPCS: 73562

== ENCOUNTER → 2023-11-27 08:27 | Outpatient (CLI) | payer MEDICARE, SELFPAY ==
--- NOTE | 2023-11-27 | DI.US.S_ITS ---
PROCEDURE: US ARTERIAL DUPLEX LE RT INDICATIONS: PAIN TECHNIQUE: Color and pulse Doppler interrogation was performed of the right lower extremity arterial system, with image documentation. COMPARISON: None. FINDINGS: Common femoral artery: 73 cm/sec, with triphasic flow. Deep femoral artery: 48 cm/sec, with triphasic flow. Proximal superficial femoral artery: 71 cm/sec, with triphasic flow. Mid superficial femoral artery: 71 cm/sec, with triphasic flow. Distal superficial femoral artery: 43 cm/sec, with triphasic flow. Popliteal artery: 23 cm/sec, with biphasic flow. Posterior tibial artery: 37 cm/sec, with biphasic flow. Anterior tibial artery/dorsalis pedis: 37 cm/sec, with biphasic flow. Ramos-scale imaging description: No visualize atherosclerotic plaque. IMPRESSION: Normal multiphasic waveforms in the right lower extremity arterial vasculature with no velocity shift to suggest a hemodynamically significant stenosis. Dictated by: Tori Bautista M.D. on 11/27/2023 at 15:05 Approved by: Tori Bautista M.D. on 11/27/2023 at 15:10
== END ==
PROVIDERS: PCP Nurse Practitioner; Referring Provider Orthopaedic Surgery Foot and Ankle Surgery; Visit Provider Orthopaedic Surgery Foot and Ankle Surgery
DX: M79.661 Pain in right lower leg (principal)
CPT/HCPCS: 93926

== ENCOUNTER → 2024-01-09 08:18 | Outpatient (CLI) | payer MEDICARE, SELFPAY | PROVIDERS: PCP Nurse Practitioner; Visit Provider Student in an Organized Health Care Education/Training Program | DX: R35.0 Frequency of micturition (principal) | CPT/HCPCS: 87077; 87086; 87186 ==

== ENCOUNTER → 2024-01-15 10:25 | Outpatient (CLI) | payer MEDICARE, SELFPAY | PROVIDERS: PCP Nurse Practitioner; Visit Provider Physician Assistant | DX: R39.9 Unspecified symptoms and signs involving the genitourinary system (principal) | CPT/HCPCS: 87086 ==

== ENCOUNTER → 2024-02-07 12:53 | Outpatient (CLI) | payer MEDICARE, SELFPAY ==
[2024-02-07 13:48] LABS: Appearance Urine UA SL CLOUDY; Bilirubin Urine UA NEGATIVE (NEGATIVE); Color Urine UA YELLOW; Glucose Urine UA NEGATIVE (Negative); Ketones Urine UA NEGATIVE (NEGATIVE); Leukocyte Esterase Urine UA 3+ (NEGATIVE); Nitrite Urine UA POSITIVE (Negative); Occult Blood Urine UA 2+ (Negative); Protein Urine UA NEGATIVE (Negative); Specific Gravity Urine UA 1.015 (1.000-1.035); Urobilinogen Urine UA 0.2 E.U./dL (0.2)
[2024-02-07 13:56] LABS: Bacteria Urine Many (>30); Culture Indicated Urine Specimen Cultured; RBC Urine 1-5/HPF (0-5/HPF); Squamous Epithelial Cell Urine 5-10 /HPF (0-5/HPF); Urine Volume 10mL (spun); WBC Urine 10-30/HPF (0-5/HPF)
== END ==
LOC: LAB 12:56
PROVIDERS: PCP Nurse Practitioner; Referring Provider Nurse Practitioner; Visit Provider Nurse Practitioner
DX: R39.15 Urgency of urination (principal); R39.9 Unspecified symptoms and signs involving the genitourinary system
CPT/HCPCS: 81001; 87077; 87086; 87186

== ENCOUNTER → 2024-04-10 10:20 | Outpatient (CLI) | payer MEDICARE, SELFPAY ==
--- NOTE | 2024-04-10 10:23 | DI.CT.S_ITS ---
PROCEDURE: CT HEAD/BRAIN WO CON INDICATIONS: Memory changes, tremors, visual disturbances, gait changes p TECHNIQUE: Noncontrast 4.5 mm thick angled axial sections acquired from the foramen magnum to the vertex, with coronal and sagittal reformats. For radiation dose reduction, the following was used: automated exposure control, adjustment of mA and/or kV according to patient size. COMPARISON: None. FINDINGS: Image quality: Diagnostic. CSF spaces: Basal cisterns are patent. No extra-axial fluid collections. The ventricles are symmetric in size and shape. Brain: No intracranial bleeds or masses. There is cerebral volume loss for age, with resultant ventricular and sulcal prominence. There are periventricular and deep white matter chronic small vessel ischemic changes. There is intracranial internal carotid artery atherosclerosis. Skull and face: Calvarium and visualized facial bones appear intact, without suspicious lesions. Sinuses: Visualized sinuses and mastoids are clear. IMPRESSION: No acute intracranial pathology. Dictated by: Carlos Queen M.D. on 04/10/2024 at 10:54 Approved by: Carlos Queen M.D. on 04/10/2024 at 10:55
== END ==
PROVIDERS: PCP Nurse Practitioner; Referring Provider Nurse Practitioner; Visit Provider Nurse Practitioner
DX: I65.29 Occlusion and stenosis of unspecified carotid artery (principal); R41.0 Disorientation, unspecified; H53.9 Unspecified visual disturbance; R26.89 Other abnormalities of gait and mobility
CPT/HCPCS: 70450

== ENCOUNTER → 2024-05-21 08:06 | Outpatient (CLI) | payer MEDICARE, SELFPAY ==
[2024-05-21 08:41] LABS: Estimated Glomerular Filt Rate > 60 mL/min (>60)
--- NOTE | 2024-05-21 09:41 | DI.CT.S_ITS ---
PROCEDURE: CT ANGIO ABDOMEN PELVIS INDICATIONS: INFRARENAL aaa TECHNIQUE: Non-contrast 3 mm thick sections acquired from the diaphragm to the symphysis. After the administration of intravenous contrast, 2.5 mm thick sections acquired from the diaphragm to the symphysis during the arterial and venous phases. 10 mm maximum intensity projection (MIP) reformats were acquired of the arterial phase images. For radiation dose reduction, the following was used: automated exposure control. COMPARISON: [facility], CT, CT ANGIO ABDOMEN PELVIS, 07/17/2023, 10:46. FINDINGS: Image Quality: Diagnostic. Abdominal aorta: Compared to CTA dated July 17, 2023, interval aorto bi-iliac endo graft which is patent with no significant stenosis. Arterial phase demonstrates linear hyperattenuation in the excluded sac at the level of the proximal aspect of the iliac bifurcation which is not present on the noncontrast series lumens on the delayed phase (, , , ) in the region of the. Infrarenal abdominal aorta is stable in size measuring 5 x 4.8 cm (), previously 5.1 x 4.8 cm. Mesenteric arteries: Celiac artery, SMA and TERRANCE branches are patent with no significant stenosis. TERRANCE origin is occluded compatible with postsurgical sequela with retrograde filling via the marginal artery of Kev. Renal arteries: Patent without hemodynamically significant stenosis. OTHER: Lower Chest: Cardiomegaly. Liver: No solid mass. Reflux of contrast into the hepatic veins. Gallbladder: No radiopaque gallstones or wall thickening. Biliary ducts: No biliary dilation. Pancreas: No ductal dilation. Spleen: Size is within normal limits. Adrenal Glands: No adrenal nodules. Kidneys and Ureters: No hydronephrosis. Areas of cortical thinning in the bilateral kidneys, left greater than right. No solid mass. Right upper pole simple cyst. No complex renal cystic lesion which requires follow up. Stomach and Bowel: Normal colonic caliber, without significant wall thickening. Colonic diverticulosis, without diverticulitis. Peritoneum: No abnormal intraperitoneal fluid. No free air. Ventral Wall: No hernia. Abdominal Nodes: No retroperitoneal or mesenteric adenopathy by size criteria. Vessels: Inferior vena cava is normal in size. PELVIS: Pelvic Organs: Hysterectomy. Pessary. Bladder: Unremarkable. Pelvic Nodes: No enlarged lymph nodes. Miscellaneous: No inguinal hernias are seen. Bones: No aggressive osseous abnormality. No acute fractures. Diffuse osseous demineralization. Retrolisthesis of L2 on L3 of approximately 4 mm. Marked multilevel degenerative changes with osteophytosis, disc height loss and facet arthropathy. IMPRESSION: 1. Compared to CTA dated July 17, 2023, interval aorto bi-iliac endo graft which is patent. Infrarenal abdominal aorta is stable in size measuring 5.1 x 4.8 cm. Arterial phase demonstrates linear hyperattenuation in the excluded sac at the level of the proximal aspect of the iliac bifurcation suspicious for an endoleak, possibly type 2. 2. Cardiomegaly with reflux of contrast into the hepatic veins suggestive of right heart dysfunction. Correlate with ECHO. 3. Colonic diverticulosis, without diverticulitis. Dictated by: Tori Bautista M.D. on 05/21/2024 at 13:49 Approved by: Tori Bautista M.D. on 05/21/2024 at 14:23
[2024-05-21 10:49] LABS: Alanine Aminotransferase 16 IU/L (<35); Albumin 4.1 g/dL (3.5-5.0); Albumin Globulin Ratio 1.6 (1.0-2.8); Alkaline Phosphatase 96 U/L (38-126); Aspartate Aminotransferase 33 IU/L (14-36); BUN Creatinine Ratio 26.4 (6-22); Bilirubin Total 1.6 mg/dL (0.2-1.3); Blood Urea Nitrogen 24 mg/dL (7-17); Calcium 9.4 mg/dL (8.4-10.2); Carbon Dioxide 24 mmol/L (22-32); Chloride 107 mmol/L (98-107); Cholesterol 175 mg/dL (140-199); Estimated Glomerular Filt Rate > 60 mL/min (>60); Globulin 2.6 g/dL (1.7-4.1); Glucose 107 mg/dL (80-110); HDL Cholesterol 82 mg/dL (40-60); HEMOLYSIS 16 (0-50); LDL Cholesterol Calculated 76 mg/dL (<100); Potassium 4.4 mmol/L (3.4-5.1); Sodium 137 mmol/L (137-145); Total Protein 6.7 g/dL (6.3-8.2); Triglycerides 87 mg/dL (35-150)
== END ==
PROVIDERS: Radiology Diagnostic Radiology; PCP Nurse Practitioner; Referring Provider Surgery; Visit Provider Surgery
DX: R79.89 Other specified abnormal findings of blood chemistry (principal); I71.43 Infrarenal abdominal aortic aneurysm, without rupture; Z79.899 Other long term (current) drug therapy; I51.7 Cardiomegaly; N28.1 Cyst of kidney, acquired; K57.90 Diverticulosis of intestine, part unspecified, without perforation or abscess without bleeding; Z90.710 Acquired absence of both cervix and uterus; M43.16 Spondylolisthesis, lumbar region
CPT/HCPCS: 36415; 74174; 80053; 80061; 82565; Q9967

== ENCOUNTER → 2024-09-02 12:03 | Outpatient (CLI) | payer MEDICARE, SELFPAY ==
--- NOTE | 2024-09-02 | DI.ECHO.S_ITS ---
[place] +---------+ [facility] : : [address] : : [place] : : [id number] : : Phone: [phone] Echocardiogram Report + + :Name: JANENE DAVILA Study Date: 09/02/2024 Height: 67 in : :[facility] ReadingLocation: Weight: 190 lb : : Gender: Female BSA: 2.0 m2 : :: 1950 Age: 73 yrs BP: 119/97 mmHg: :Reason For Study: SYSTOLIC HEART FAILURE : :Ordering Physician: GABE, : :MONTSERRAT Performed By: Cristian Shook : :Referring: MONTSERRAT ANDRE : + + Interpretation Summary 1) Moderately dilated left ventricle with moderately to severely reduced function (EF 30-35%). 2) Mildly enlarged right ventricle with normal function. 3) The left atrium is severely dilated. 4) There is mild to moderate mitral regurgitation. There is mild to moderate tricuspid regurgitation. 5) Compared to the Echo done 04/17/2023, no significant change. Procedure: A two-dimensional transthoracic echocardiogram with color flow and Doppler was performed. The study quality was technically difficult. Comparison is made with the echocardiogram of 04/17/2023. The patient was in atrial fibrillation with heart rates between 81-125 bpm during the exam. Left Ventricle: The left ventricle is moderately dilated. Left ventricular wall thickness is normal. There is no ventricular septal defect visualized. The ejection fraction is estimated to be 30-35%. There is moderate to severe global hypokinesis of the left ventricle. Diastolic function could not be accurately assessed due to atrial fibrillation. Right Ventricle: The right ventricle is mildly dilated. The right ventricular systolic function is normal. Atria: The left atrium is severely dilated. The right atrium is mild to moderately dilated. There is no Doppler evidence for an atrial septal defect. Mitral Valve: There is mild mitral annular calcification. The mitral valve leaflets appear mildly thickened, but open well. There is mild to moderate mitral regurgitation. Aortic Valve: The aortic valve is trileaflet. The aortic valve opens well. There is no aortic valve stenosis. There is mild aortic regurgitation. Tricuspid Valve: The tricuspid valve is normal in structure and function. There is mild to moderate tricuspid regurgitation. The right ventricular systolic pressure is estimated to be at least 33 mmHg based on an estimated right atrial pressure of 3 mm Hg. Pulmonic Valve: The pulmonic valve is normal in structure and function. There is trace pulmonic regurgitation. Great Vessels: The aortic root is normal size. The dimensions of the ascending aorta are normal. The pulmonary artery is normal size. The IVC is of normal diameter and collapses greater than 50% with a sniff. This suggests a low right atrial pressure of 3 mm Hg. Pericardium/ Pleura There is no pericardial effusion. There is no pleural effusion. MMode/2D Measurements & Calculations LVIDd: 6.0 cm LVOT diam: 2.4 cm LVIDs: 5.0 cm Ao root diam: 3.9 cm FS: 16.0 % asc Aorta Diam: 3.5 cm EPSS: 0.84 cm IVSd: 1.0 cm LVPWd: 1.2 cm LV murphy. diameter/BSA (cm/m^2): 3.0 LV sys. diameter/BSA (cm/m^2): 2.5 LA A2 area: 35.1 cm2 RA long axis: 5.9 cm LA A4 area: 45.9 cm2 RA area: 18.9 cm2 LA length (vol): 8.8 cm RA vol: 51.2 ml LA vol: 155.6 ml RA : 25.9 ml/m2 LA vol index: 78.6 ml/m2 IVC diam: 1.3 cm RVD1 (basal): 4.2 cm RVD2 (mid): 3.0 cm TAPSE: 1.9 cm Doppler Measurements & Calculations Ao V2 max: 99.8 cm/sec LVOT Max Reuben: 51.8 cm/sec Ao V2 mean: 74.3 cm/sec LV V1 max P.1 mmHg Ao max P.0 mmHg LV V1 VTI: 8.2 cm Ao mean P.3 mmHg TOYA(I,D): 2.1 cm2 Ao V2 VTI: 18.4 cm TOYA(V,D): 2.4 cm2 sev ratio: 0.45 TOYA indexed to BSA (cm^2/m^2): 1.0 MV E max reuben: 57.4 cm/sec TR max reuben: 275.4 cm/sec MV A max reuben: 22.9 cm/sec TR max P.3 mmHg MV E/A: 2.5 PA V2 max: 49.4 cm/sec Med Peak E' Reuben: 7.4 cm/sec PA V2 mean: 32.9 cm/sec E/E' med: 7.8 PA mean P.47 mmHg Lat Peak E' Reuben: 7.7 cm/sec PA pr(Accel): 34.5 mmHg E/E' lat: 7.4 E/e' average: 7.6 MV dec time: 0.24 sec MR ERO: 0.13 cm2 MR PISA: 1.9 cm2 SV(LVOT): 38.1 ml MR flow rate: 68.2 cm3/sec MR PISA radius: 0.54 cm Reading Physician:10:58 AM
== END ==
PROVIDERS: PCP Nurse Practitioner; Referring Provider Internal Medicine Cardiovascular Disease; Visit Provider Internal Medicine Cardiovascular Disease
DX: I08.3 Combined rheumatic disorders of mitral, aortic and tricuspid valves (principal); I50.22 Chronic systolic (congestive) heart failure; I48.91 Unspecified atrial fibrillation
CPT/HCPCS: 93306

== ENCOUNTER → 2024-12-24 08:50 | Outpatient (CLI) | payer MEDICARE, SELFPAY ==
[2024-12-24 09:38] LABS: Add Manual Diff / Slide Review NO; Basophils Absolute Auto 0 /uL (0-100); Basophils Percent Auto 0.4 % (0-2); Eosinophils Absolute Auto 100 /uL (0-450); Eosinophils Percent Auto 0.6 % (2-4); Hematocrit 48.7 % (36-46); Hemoglobin 16.3 g/dL (12.0-16.0); Lymphocytes Absolute Auto 1700 /uL (1100-4500); Lymphocytes Percent Auto 20.5 % (25-40); Mean Corpuscular HGB Conc 33.6 % (30-36); Mean Corpuscular Hemoglobin 33.2 PG (26-34); Mean Corpuscular Volume 98.9 fL (80-100); Monocytes Absolute Auto 800 /uL (0-900); Monocytes Percent Auto 10.1 % (3-14); Neutrophils Absolute Auto 5700 /uL (1500-7000); Neutrophils Percent Auto 68.4 % (50-75); Platelet Count 185 X10^3/uL (150-400); Red Blood Cell Count 4.92 X10^6/uL (4.0-5.2); Red Cell Distribution Width 13.5 % (11.6-14.8); White Blood Cell Count 8.3 X10^3/uL (4.5-11.0)
[2024-12-24 10:12] LABS: Alanine Aminotransferase 22 IU/L (<35); Albumin 4.2 g/dL (3.5-5.0); Albumin Globulin Ratio 1.8 (1.0-2.8); Alkaline Phosphatase 89 U/L (38-126); Aspartate Aminotransferase 28 IU/L (14-36); BUN Creatinine Ratio 24.3 (6-22); Bilirubin Total 1.1 mg/dL (0.2-1.3); Blood Urea Nitrogen 26 mg/dL (7-17); Calcium 9.3 mg/dL (8.4-10.2); Carbon Dioxide 27 mmol/L (22-32); Chloride 103 mmol/L (98-107); Cholesterol 172 mg/dL (140-199); Estimated Glomerular Filt Rate 55 mL/min (>60); Globulin 2.4 g/dL (1.7-4.1); Glucose 104 mg/dL (80-110); HDL Cholesterol 83 mg/dL (40-60); HEMOLYSIS < 15 (0-50); LDL Cholesterol Calculated 70 mg/dL (<100); Potassium 4.2 mmol/L (3.4-5.1); Sodium 139 mmol/L (137-145); Total Protein 6.6 g/dL (6.3-8.2); Triglycerides 94 mg/dL (35-150)
[2024-12-24 10:31] LABS: Appearance Urine UA CLEAR; Bilirubin Urine UA NEGATIVE (NEGATIVE); Color Urine UA YELLOW; Glucose Urine UA NEGATIVE (Negative); Ketones Urine UA NEGATIVE (NEGATIVE); Leukocyte Esterase Urine UA 1+ (NEGATIVE); Nitrite Urine UA POSITIVE (Negative); Occult Blood Urine UA 1+ (Negative); Protein Urine UA NEGATIVE (Negative); Specific Gravity Urine UA >=1.030 (1.000-1.035); Urobilinogen Urine UA 0.2 E.U./dL (0.2)
[2024-12-24 10:48] LABS: pH Urine UA 5.5 (4.5-8.0)
[2024-12-24 10:59] LABS: Bacteria Urine Many (>30); Culture Indicated Urine Specimen Cultured; RBC Urine 0-1/HPF (0-5/HPF); Squamous Epithelial Cell Urine 1-5 /HPF (0-5/HPF); Urine Volume 10mL (spun); WBC Urine 10-30/HPF (0-5/HPF)
== END ==
PROVIDERS: PCP Family Medicine; Referring Provider Family Medicine; Visit Provider Family Medicine
DX: I48.91 Unspecified atrial fibrillation (principal); I10 Essential (primary) hypertension; Z79.01 Long term (current) use of anticoagulants; R30.0 Dysuria
CPT/HCPCS: 36415; 80053; 80061; 81001; 85025; 87077; 87086

== ENCOUNTER → 2025-04-24 10:41 | Outpatient (CLI) | payer MEDICARE, SELFPAY | PROVIDERS: PCP Family Medicine; Visit Provider Family Medicine | DX: R35.0 Frequency of micturition (principal) | CPT/HCPCS: 81002; 87077; 87086; 87186 ==

== ENCOUNTER → 2025-05-01 10:11 | Outpatient (CLI) | payer MEDICARE, SELFPAY ==
--- NOTE | 2025-05-01 10:13 | DI.MRI.S_ITS ---
PROCEDURE: MR HEAD/BRAIN WO/W CON INDICATIONS: tremors TECHNIQUE: Noncontrast axial T1 spin echo, axial T2 fast spin echo, sagittal and axial FLAIR, coronal T2 fast spin echo, axial gradient echo, axial diffusion and ADC through the brain. After the administration of contrast, axial and coronal and sagittal T1 spin echo with fat saturation through the brain. COMPARISON: [facility], CT, CT HEAD/BRAIN WO CON, 04/10/2024, 10:35. FINDINGS: Image quality: Excellent. CSF spaces: Basal cisterns are patent. No extra-axial fluid collections. Ventricles are normal in size and shape. Brain: No midline shift. No intracranial bleed. There is a homogeneously enhancing extra-axial mass is at the meningeal surface of the left posterior cranial fossa, measuring up to 1.2 cm AP, 1.8 cm transverse and 1.8 cm craniocaudad. The adjacent 7th and 8th cranial nerves bilaterally appear normal without displacement best seen on axial T2 imaging series 8, image 7. No adjacent cerebellar edema is associated. Mild mass effect distorting the anterior border of the cerebellum adjacent to the lateral aspect of the left cerebellar peduncle is noted. No abnormal intracranial enhancement elsewhere. There is cerebral volume loss for age. There is periventricular white matter chronic small vessel ischemic change. The brainstem appears normal. Diffusion-weighted images demonstrate no acute infarct. No chronic ischemic insults. Normal intravascular flow voids are present. Skull and face: Calvarial marrow is normal in signal. Orbits appear normal. Sinuses: Sinuses and mastoids appear clear except for minimal dependent layering fluid within the maxillary sinuses bilaterally, without mural thickening.. IMPRESSION: Mild microvascular atherosclerotic change scattered within the deep white matter of each hemisphere. No chronic or subacute ischemic injury is found. 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 No adjacent cerebellar edema is associated. The adjacent cranial nerves appear free of involvement but are positioned in close proximity to the anterior border of this meningeal mass. Neurosurgical consultation is recommended. Dictated by: Joe Breen M.D. on 05/01/2025 at 12:55 Approved by: Joe Breen M.D. on 05/01/2025 at 13:04
== END ==
PROVIDERS: PCP Family Medicine; Referring Provider Family Medicine; Visit Provider Family Medicine
DX: G93.9 Disorder of brain, unspecified (principal); R25.1 Tremor, unspecified
CPT/HCPCS: 70553; A9579

== ENCOUNTER 2025-08-24 09:30 | Inpatient (IN) | payer MEDICARE, SELFPAY ==
[2025-08-24] VITALS (14 sets, daily range): BP systolic 80–117; BP diastolic 52–80; PULSE 59–110; RESP 12–16; TEMP 36.1–36.4; O2SAT 91–99; BMI 26.6
[2025-08-24 10:04] LABS: Add Manual Diff / Slide Review NO; Hematocrit 50.0 % (36-46); Hemoglobin 17.2 g/dL (12.0-16.0); Lymphocytes Absolute Auto 900 /uL (1100-4500); Mean Corpuscular HGB Conc 34.4 % (30-36); Mean Corpuscular Hemoglobin 32.2 PG (26-34); Mean Corpuscular Volume 93.5 fL (80-100); Platelet Count 165 X10^3/uL (150-400)
[2025-08-24 10:10] LABS: INR 4.5 (0.9-1.3); Prothrombin Time 48.8 SECONDS (9.4-12.5)
[2025-08-24 10:14] LABS: Alanine Aminotransferase 146 IU/L (<35); Albumin 4.2 g/dL (3.5-5.0); Albumin Globulin Ratio 1.4 (1.0-2.8); Alkaline Phosphatase 74 U/L (38-126); Blood Urea Nitrogen 27 mg/dL (7-17); Calcium 9.4 mg/dL (8.4-10.2); Carbon Dioxide 26 mmol/L (22-32); Chloride 99 mmol/L (98-107); Estimated Glomerular Filt Rate 51 mL/min (>60); Globulin 3.0 g/dL (1.7-4.1); Glucose 128 mg/dL (70-99); HEMOLYSIS < 15 (0-50); Potassium 4.3 mmol/L (3.4-5.1); Sodium 135 mmol/L (137-145); Total Protein 7.2 g/dL (6.3-8.2)
--- NOTE | 2025-08-24 10:15 | EKG_ITS ---
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
--- NOTE | 2025-08-24 10:18 | DI.CT.S_ITS ---
PROCEDURE: CT HEAD/BRAIN WO CON INDICATIONS: Poor historian, confusion TECHNIQUE: Noncontrast 4.5 mm thick angled axial sections acquired from the foramen magnum to the vertex, with coronal and sagittal reformats. For radiation dose reduction, the following was used: automated exposure control, adjustment of mA and/or kV according to patient size. COMPARISON: [facility], CT, CT HEAD/BRAIN WO CON, 04/10/2024, 10:35. Brain MRI with and without contrast dated 05/01/2025. FINDINGS: Image quality: Diagnostic. CSF spaces: Basal cisterns are patent. No extra-axial fluid collections. The ventricles are symmetric in size and shape. Brain: No intracranial bleeds or mass effect. There is cerebral volume loss, with resultant ventricular and sulcal prominence. There are periventricular and deep white matter chronic small vessel ischemic changes. There is intracranial internal carotid artery atherosclerosis. Again seen is a left posterior fossa meningioma which is not significantly changed in size compared to the prior MRI. This is slightly increased in size compared to the prior CT dated 2023. Skull and face: Calvarium and visualized facial bones appear intact, without suspicious lesions. Sinuses: Small air-fluid levels are seen within the maxillary sinuses. Visualized sinuses and mastoids are otherwise clear. IMPRESSION: No acute intracranial pathology. Acute bilateral maxillary sinusitis. Dictated by: Tara Wild M.D. on 08/24/2025 at 10:09 Approved by: Tara Wild M.D. on 08/24/2025 at 10:17
--- NOTE | 2025-08-24 10:18 | DI.RAD.S_ITS ---
PROCEDURE: XR CHEST 1V INDICATIONS: Poor historian, confusion TECHNIQUE: One view of the chest was acquired. COMPARISON: [facility], , XR CHEST 1V, 07/20/2022, 8:52. [facility], CR, XR CHEST 2V, 06/29/2020, 11:29. FINDINGS: Surgical changes and devices: None. Lungs and pleura: Lungs are clear. No pleural effusions or pneumothorax. Mediastinum: Mediastinal contours appear normal. Heart size is normal. Bones and chest wall: No suspicious bony lesions. Overlying soft tissues appear unremarkable. IMPRESSION: No acute cardiopulmonary abnormality is seen. Dictated by: Tara Wild M.D. on 08/24/2025 at 10:36 Approved by: Tara Wild M.D. on 08/24/2025 at 10:38
--- NOTE | 2025-08-24 10:18 | DI.CT.S_ITS ---
PROCEDURE: CT CERVICAL SPINE WO CON INDICATIONS: Fall TECHNIQUE: Noncontrast 3 mm thick sections acquired from the skull base to the T4 level. Sagittal and coronal reformats were then constructed. For radiation dose reduction, the following was used: automated exposure control, adjustment of mA and/or kV according to patient size. COMPARISON: None. FINDINGS: Image quality: Excellent. Bones: No fractures or dislocations. Visualized superior ribs are intact. Degenerative changes of the cervical spine are mild. Soft tissues: Prevertebral soft tissues are normal in thickness. No paravertebral hematomas. No apical pneumothoraces. IMPRESSION: No displaced fracture or traumatic subluxation. Dictated by: Tara Wild M.D. on 08/24/2025 at 10:06 Approved by: Tara Wild M.D. on 08/24/2025 at 10:08
--- NOTE | 2025-08-24 10:18 | DI.CT.S_ITS ---
PROCEDURE: CT TRAUMA CHEST ABDOMEN PELVIS INDICATIONS: Fall, poor historian. confusion TECHNIQUE: After the administration of intravenous contrast, 5 mm thick sections acquired from the lung apices to the symphysis. 2.5 mm thick coronal and sagittal reformats were acquired. Additional 7 mm thick coronal maximum intensity projection (MIP) reformats acquired through the lungs. Optional 10-minute delayed imaging may be performed from the kidneys to the bladder. For radiation dose reduction, the following was used: automated exposure control, adjustment of mA and/or kV according to patient size. COMPARISON: None. FINDINGS: Image quality: Diagnostic. CHEST: Lower Neck: No enlarged lymph nodes. Thyroid: No thyroid nodules which require sonographic evaluation. Axillae: No enlarged lymph nodes. Chest Wall: No subcutaneous gas. Lungs and Pleura: No pulmonary contusions or lacerations. No acute airspace opacities. No pneumothorax or hemothorax. Mediastinum: No mediastinal hematomas. Heart size is normal. No pericardial effusion. Thoracic aorta and pulmonary arteries demonstrate normal size and enhancement. No mediastinal or hilar adenopathy. Esophagus is normal in caliber. No hiatal hernia. ABDOMEN: Liver: No lacerations. Gallbladder: No radiopaque gallstones or wall thickening. Biliary ducts: No biliary dilation. Pancreas: Homogenous enhancement. Spleen: Homogenous enhancement without laceration or hematoma. Adrenal Glands: Symmetric enhancement. Kidneys and Ureters: Numerous tiny left renal cortical defects are suggestive of prior infarct. Otherwise symmetric enhancement. No hydronephrosis. No solid mass. No complex renal cystic lesion which requires follow up. Stomach and Bowel: Normal colonic caliber, without significant wall thickening. Peritoneum: No abnormal intraperitoneal fluid. No free air. Ventral Wall: No hernia. Abdominal Nodes: No retroperitoneal or mesenteric adenopathy by size criteria. Vessels: An infrarenal aorta bi-iliac stent is patent without findings suspicious for endoleak. PELVIS: Pelvic Organs: Unremarkable. A pessary is in place. Bladder: Normal thickness. Pelvic Nodes: No enlarged lymph nodes. Miscellaneous: No inguinal hernias are seen. Bones: Pelvic ring and hip joints appear intact. No displaced rib fractures. IMPRESSION: No evidence of traumatic injury to the chest, abdomen or pelvis. Dictated by: Tara Wild M.D. on 08/24/2025 at 10:40 Approved by: Tara Wild M.D. on 08/24/2025 at 10:50
--- NOTE | 2025-08-24 10:44 | ED.FALL ---
HPI - Fall General Chief Complaint: Fall Stated Complaint: Fall Time Seen by Provider: 08/24/25 09:54 Source: EMS Mode of arrival: EMS History of Present Illness HPI Narrative: 74 years old female with history of dementia, hypertension, atrial fibrillation on warfarin brought in by an ambulance today complaining of fall on Monday and was on the floor all night Monday night. Her family got her up on Monday morning. She has abrasion on the left elbow but denied any pain left elbow and was able to move her left elbow without pain or difficulty. She denied any headache, neck pain, back pain, chest pain, abdominal pain, shortness of breath, nausea vomiting, numbness weakness on her arms or legs, nausea vomiting, loss of consciousness. Related Data Home Medications ?Medication ?Instructions ?Recorded ?Confirmed celecoxib 200 mg capsule (Celebrex) 200 mg PO BID 01/22/24 08/25/25 carbidopa 25 mg-levodopa 100 mg 1 tab PO TID tremors 07/22/25 08/25/25 tablet Held on 08/25/25. Instructions: patient states her has not started yet. Previous Rx's ?Medication ?Instructions ?Recorded Disabled parking permit #1 ea 09/17/18 lisinopril 2.5 mg tablet See Rx Instructions .Route 05/31/21 .COMPLEX #90 tabs Disabled Parking Permit See Rx Instructions .Route 08/01/22 .COMPLEX #1 unit furosemide 20 mg tablet See Rx Instructions .Route 04/03/24 .COMPLEX #90 tabs metoprolol succinate 100 mg 100 mg PO BID #180 tabs 06/10/24 tablet,extended release 24 hr spironolactone 25 mg tablet See Rx Instructions .Route 06/10/24 .COMPLEX #45 tabs warfarin 5 mg tablet 5 mg PO QTUTH #30 tabs 06/12/24 magnesium oxide 400 mg (241.3 mg See Rx Instructions .Route 08/27/24 magnesium) tablet .COMPLEX #90 tabs estradiol 0.01% (0.1 mg/gram) 1 appful vaginal 2XW #42.5 grams 05/15/25 vaginal cream warfarin 3 mg tablet 3 mg PO .COMPLEX #60 tabs 07/31/25 Allergies Allergy/AdvReac Type Severity Reaction Status Date / Time Penicillins (PENICILLINS) Allergy Severe HIVES AND Verified 08/24/25 09:45 COULD NOT BREATHE Sulfa (Sulfonamide Allergy Mild HIVES Verified 08/24/25 09:45 Antibiotics) (SULFA (SULFONAMIDE ANTIBIOTICS)) bee venom protein (honey bee) Allergy swelling Verified 08/24/25 09:45 at site of sting cephalexin AdvReac Intermediate Diahrrea, Verified 08/24/25 09:45 sick to stomach, hard to tolerate vancomycin (VANCOMYCIN) AdvReac Intermediate bottom of Verified 08/24/25 09:45 feet red and rash Review of Systems Review of Systems Narrative: Positive for left elbow contusion, fall. Negative for headache, neck pain, back pain, chest pain, abdominal pain, shortness of breath, nausea vomiting, numbness weakness on her arms or legs, nausea vomiting, loss of consciousness. Patient History Medical History A-fib AAA (abdominal aortic aneurysm) Back pain (10/2012) Cerebral microvascular disease Colon polyps (Unknown) Diastolic congestive heart failure Diverticulosis of colon (Unknown) Elevated LFTs Lichen planus-like keratosis (LPLK) group home current use of anticoagulant therapy Osteomyelitis (~2012) Post-menopausal osteoporosis Postoperative confusion Uncompensated short term memory deficit Urinary urgency Surgical History History of AAA (abdominal aortic aneurysm) repair Hx of hysterectomy (Unknown) Social History household members: none Smoking Status: Former smoker second hand exposure: No alcohol intake: current substance use type: does not use Smoking Status: Former smoker alcohol intake frequency: holidays/special occasions only Exam Narrative Exam Narrative: GENERAL: Alert, awake and follow commands. HEAD: Atraumatic. Normocephalic. NECK: Trachea midline. Non tender. CARDIOVASCULAR: Regular rate and rhythm without murmurs, gallops, or rubs. RESPIRATORY: Clear to auscultation. Breath sounds equal bilaterally. No wheezes, rales, or rhonchi. GASTROINTESTINAL: Abdomen soft, non-tender, nondistended. EXTREMITIES: No edema or joint tenderness. Normal left elbow flexion and extension, supination, pronation. BACK: Nontender without deformity or crepitance. No flank tenderness. No tenderness on palpation midline C-spine, thoracolumbar spine. NEURO: Alert awake and moving all extremities. Answering questions appropriately. Normal sensation in both arms and legs. SKIN: Abrasion left elbow with my swelling without tenderness on palpation or crepitus. Initial Vital Signs Initial Vital Signs: Vital Signs Pulse Rate 93 H 08/24/25 09:36 Blood Pressure 117/71 08/24/25 09:36 Pulse Oximetry 98 08/24/25 09:36 Course Orders Ordered: Acetaminophen (Acetaminophen 325 Mg Tablet) 650 mg PO Q6H PRN PRN Reason: Fever/Mild Pain (1-3) Artificial Tears (Carboxymethylcellulose Drops) 1 drops EYE-BOTH PRN PRN PRN Reason: Dry Eye(s) Last Admin: 08/25/25 16:45 Dose: 1 drops Documented By: BARRY Sodium Chloride (Normal Saline 0.45%) 1,000 mls @ 75 mls/hr IV CONT [facility] Last Admin: 08/26/25 06:30 Dose: 125 mls/hr Documented By: Infusion: 08/26/25 03:55 Dose: Infused Documented By: Admin: 08/25/25 19:55 Dose: 125 mls/hr Documented By: Infusion: 08/25/25 19:12 Dose: Infused Documented By: Admin: 08/25/25 11:12 Dose: 125 mls/hr Documented By: Infusion: 08/25/25 11:01 Dose: Infused Documented By: Admin: 08/25/25 03:01 Dose: 125 mls/hr Documented By: Infusion: 08/25/25 02:20 Dose: Infused Documented By: Admin: 08/24/25 18:20 Dose: 125 mls/hr Documented By: ALFONSO Levofloxacin (Levaquin) 500 mg in 100 mls @ 100 mls/hr IV Q24H [facility] Last Infusion: 08/25/25 18:05 Dose: Infused Documented By: Admin: 08/25/25 16:45 Dose: 100 mls/hr Documented By: Infusion: 08/24/25 19:54 Dose: Infused Documented By: Admin: 08/24/25 18:21 Dose: 100 mls/hr Documented By: ALFONSO Magnesium Oxide (Magnesium Oxide 400 Mg Tablet) 400 mg PO DAILY [facility] Last Admin: 08/26/25 10:06 Dose: 400 mg Documented By: Admin: 08/25/25 11:23 Dose: 400 mg Documented By: BARRY Metoprolol Succinate (Metoprolol Er 50 Mg Tablet) 100 mg PO BID [facility] Last Admin: 08/26/25 10:06 Dose: 100 mg Documented By: Admin: 08/25/25 20:40 Dose: Not Given Documented By: Admin: 08/25/25 11:21 Dose: 100 mg Documented By: BARRY Naloxone HCl (Naloxone 0.4 Mg/Ml Vial) 0.2 mg IV Q2MIN PRN PRN Reason: Opiate Reversal Ondansetron HCl (Ondansetron 4 Mg/2 Ml Inj) 4 mg IV NOW PRN PRN Reason: Nausea And Vomiting Ondansetron HCl (Ondansetron 4 Mg Odt) 4 mg PO NOW PRN PRN Reason: Nausea And Vomiting Vital Signs Vital signs: Vital Signs - 8 hr 08/24/25 09:36 08/24/25 09:36 08/24/25 09:45 Temperature 97.6 F Pulse Rate 93 H 110 H Respiratory Rate 12 Blood Pressure 117/71 104/80 Pulse Oximetry 98 98 Oxygen Delivery Method Room Air 08/24/25 10:00 08/24/25 10:00 08/24/25 12:40 Temperature Pulse Rate 82 72 Respiratory Rate 16 Blood Pressure 108/72 Pulse Oximetry 99 97 Oxygen Delivery Method 08/24/25 12:40 08/24/25 13:00 08/24/25 13:01 Temperature Pulse Rate 59 L 59 L Respiratory Rate Blood Pressure 115/67 Pulse Oximetry 91 96 Oxygen Delivery Method 08/24/25 13:01 Temperature Pulse Rate Respiratory Rate Blood Pressure 96/72 Pulse Oximetry Oxygen Delivery Method MDM - Fall Lab Data 08/26/25 04:45 08/26/25 04:45 Labs: Lab Results 08/24/25 08/24/25 08/24/25 Range/Units 09:55 12:20 15:50 WBC 6.7 (4.5-11.0) X10^3/uL RBC 5.35 H (4.0-5.2) X10^6/uL Hgb 17.2 H (12.0-16.0) g/dL Hct 50.0 H (36-46) % MCV 93.5 (80-100) fL MCH 32.2 (26-34) PG MCHC 34.4 (30-36) % RDW 13.8 (11.6-14.8) % Plt Count 165 (150-400) X10^3/uL Neut % (Auto) 76.1 H (50-75) % Lymph % (Auto) 14.0 L (25-40) % [place] % (Auto) 8.2 (3-14) % Eos % (Auto) 0.7 L (2-4) % Baso % (Auto) 1.0 (0-2) % Neut # (Auto) 5100 (6122-4467) /uL Lymph # (Auto) 900 L (5855-7424) /uL [place] # (Auto) 600 (0-900) /uL Eos # (Auto) 0 (0-450) /uL Baso # (Auto) 100 (0-100) /uL PT 48.8 H (9.4-12.5) SECONDS INR 4.5 H (0.9-1.3) Sodium 135 L (137-145) mmol/L Potassium 4.3 (3.4-5.1) mmol/L Chloride 99 (98-107) mmol/L Carbon Dioxide 26 (22-32) mmol/L BUN 27 H (7-17) mg/dL Creatinine 1.14 H (0.52-1.04) mg/dL Estimated GFR 51 L (>60) mL/min BUN/Creatinine Ratio 23.7 H (6-22) Glucose 128 H (70-99) mg/dL Calcium 9.4 (8.4-10.2) mg/dL Magnesium (1.6-2.3) mg/dL Total Bilirubin 2.9 H (0.2-1.3) mg/dL AST 589 H (14-36) IU/L ALT 146 H (<35) IU/L Alkaline Phosphatase 74 (38-126) U/L Total Creatine Kinase 78761 H (30-135) U/L Troponin I 0.019 (0.01-0.034) ng/mL Total Protein 7.2 (6.3-8.2) g/dL Albumin 4.2 (3.5-5.0) g/dL Globulin 3.0 (1.7-4.1) g/dL Albumin/Globulin Ratio 1.4 (1.0-2.8) TSH (0.47-4.68) uIU/mL Urine RBC 0-1/hpf (0-5/HPF) Urine WBC 5-10/hpf H (0-5/HPF) Ur Squamous Epith Cells 0-1 /hpf (0-5/HPF) Urine Bacteria Many (>30) H (None) Hyaline Casts 0-1/lpf (None) Ur Culture Indicated? Specimen cultured Vol Urine Centrifuged 10ml (spun) 08/25/25 Range/Units 04:30 WBC 5.1 (4.5-11.0) X10^3/uL RBC 5.08 (4.0-5.2) X10^6/uL Hgb 16.3 H (12.0-16.0) g/dL Hct 47.5 H (36-46) % MCV 93.6 (80-100) fL MCH 32.1 (26-34) PG MCHC 34.3 (30-36) % RDW 13.6 (11.6-14.8) % Plt Count 161 (150-400) X10^3/uL Neut % (Auto) 59.1 (50-75) % Lymph % (Auto) 26.5 (25-40) % [place] % (Auto) 10.1 (3-14) % Eos % (Auto) 3.0 (2-4) % Baso % (Auto) 1.3 (0-2) % Neut # (Auto) 3000 (1227-2705) /uL Lymph # (Auto) 1300 (5427-6748) /uL [place] # (Auto) 500 (0-900) /uL Eos # (Auto) 200 (0-450) /uL Baso # (Auto) 100 (0-100) /uL PT (9.4-12.5) SECONDS INR (0.9-1.3) Sodium 133 L (137-145) mmol/L Potassium 3.8 (3.4-5.1) mmol/L Chloride 98 (98-107) mmol/L Carbon Dioxide 27 (22-32) mmol/L BUN 31 H (7-17) mg/dL Creatinine 0.99 (0.52-1.04) mg/dL Estimated GFR 60 (>60) mL/min BUN/Creatinine Ratio 31.3 H (6-22) Glucose 103 H (70-99) mg/dL Calcium 9.1 (8.4-10.2) mg/dL Magnesium 2.0 (1.6-2.3) mg/dL Total Bilirubin 1.8 H (0.2-1.3) mg/dL AST 393 H (14-36) IU/L ALT 129 H (<35) IU/L Alkaline Phosphatase 63 (38-126) U/L Total Creatine Kinase 8385 H D (30-135) U/L Troponin I 0.013 (0.01-0.034) ng/mL Total Protein 6.5 (6.3-8.2) g/dL Albumin 3.7 (3.5-5.0) g/dL Globulin 2.8 (1.7-4.1) g/dL Albumin/Globulin Ratio 1.3 (1.0-2.8) TSH 3.52 (0.47-4.68) uIU/mL Urine RBC (0-5/HPF) Urine WBC (0-5/HPF) Ur Squamous Epith Cells (0-5/HPF) Urine Bacteria (None) Hyaline Casts (None) Ur Culture Indicated? Vol Urine Centrifuged Urine Dip Bedside Urine Glucose Negative Bedside Urine Bilirubin - Negative Bedside Urine Ketone - Negative Urine Specific [place] 1.015 Bedside Urine Occult Blood +++ Bedside Urine pH 6.0 Bedside Urine Protein - Negative Bedside Urine Urobilinogen - Negative Bedside Urine Nitrite - Negative Bedside Urine Leukocytes + [address] scan - head: Radiologist's Impression: PROCEDURE: CT HEAD/BRAIN WO CON INDICATIONS: Poor historian, confusion TECHNIQUE: Noncontrast 4.5 mm thick angled axial sections acquired from the foramen magnum to the vertex, with coronal and sagittal reformats. For radiation dose reduction, the following was used: automated exposure control, adjustment of mA and/or kV according to patient size. COMPARISON: [facility], CT, CT HEAD/BRAIN WO CON, 04/10/2024, 10:35. Brain MRI with and without contrast dated 05/01/2025. FINDINGS: Image quality: Diagnostic. CSF spaces: Basal cisterns are patent. No extra-axial fluid collections. The ventricles are symmetric in size and shape. Brain: No intracranial bleeds or mass effect. There is cerebral volume loss, with resultant ventricular and sulcal prominence. There are periventricular and deep white matter chronic small vessel ischemic changes. There is intracranial internal carotid artery atherosclerosis. Again seen is a left posterior fossa meningioma which is not significantly changed in size compared to the prior MRI. This is slightly increased in size compared to the prior CT dated 2023. Skull and face: Calvarium and visualized facial bones appear intact, without suspicious lesions. Sinuses: Small air-fluid levels are seen within the maxillary sinuses. Visualized sinuses and mastoids are otherwise clear. IMPRESSION: No acute intracranial pathology. Acute bilateral maxillary sinusitis. Dictated by: Tara Wild M.D. on 08/24/2025 at 10:09 Approved by: Tara Wild M.D. on 08/24/2025 at 10:17 CT chest abdomen and pelvis: Radiologist's Impression: PROCEDURE: CT TRAUMA CHEST ABDOMEN PELVIS INDICATIONS: Fall, poor historian. confusion TECHNIQUE: After the administration of intravenous contrast, 5 mm thick sections acquired from the lung apices to the symphysis. 2.5 mm thick coronal and sagittal reformats were acquired. Additional 7 mm thick coronal maximum intensity projection (MIP) reformats acquired through the lungs. Optional 10-minute delayed imaging may be performed from the kidneys to the bladder. For radiation dose reduction, the following was used: automated exposure control, adjustment of mA and/or kV according to patient size. COMPARISON: None. FINDINGS: Image quality: Diagnostic. CHEST: Lower Neck: No enlarged lymph nodes. Thyroid: No thyroid nodules which require sonographic evaluation. Axillae: No enlarged lymph nodes. Chest Wall: No subcutaneous gas. Lungs and Pleura: No pulmonary contusions or lacerations. No acute airspace opacities. No pneumothorax or hemothorax. Mediastinum: No mediastinal hematomas. Heart size is normal. No pericardial effusion. Thoracic aorta and pulmonary arteries demonstrate normal size and enhancement. No mediastinal or hilar adenopathy. Esophagus is normal in caliber. No hiatal hernia. ABDOMEN: Liver: No lacerations. Gallbladder: No radiopaque gallstones or wall thickening. Biliary ducts: No biliary dilation. Pancreas: Homogenous enhancement. Spleen: Homogenous enhancement without laceration or hematoma. Adrenal Glands: Symmetric enhancement. Kidneys and Ureters: Numerous tiny left renal cortical defects are suggestive of prior infarct. Otherwise symmetric enhancement. No hydronephrosis. No solid mass. No complex renal cystic lesion which requires follow up. Stomach and Bowel: Normal colonic caliber, without significant wall thickening. Peritoneum: No abnormal intraperitoneal fluid. No free air. Ventral Wall: No hernia. Abdominal Nodes: No retroperitoneal or mesenteric adenopathy by size criteria. Vessels: An infrarenal aorta bi-iliac stent is patent without findings suspicious for endoleak. PELVIS: Pelvic Organs: Unremarkable. A pessary is in place. Bladder: Normal thickness. Pelvic Nodes: No enlarged lymph nodes. Miscellaneous: No inguinal hernias are seen. Bones: Pelvic ring and hip joints appear intact. No displaced rib fractures. IMPRESSION: No evidence of traumatic injury to the chest, abdomen or pelvis. Dictated by: Tara Wild M.D. on 08/24/2025 at 10:40 Approved by: Tara Wild M.D. on 08/24/2025 at 10:50 Chest x-ray: Radiologist's Impression: PROCEDURE: XR CHEST 1V INDICATIONS: Poor historian, confusion TECHNIQUE: One view of the chest was acquired. COMPARISON: [facility], , XR CHEST 1V, 07/20/2022, 8:52. [facility], , XR CHEST 2V, 06/29/2020, 11:29. FINDINGS: Surgical changes and devices: None. Lungs and pleura: Lungs are clear. No pleural effusions or pneumothorax. Mediastinum: Mediastinal contours appear normal. Heart size is normal. Bones and chest wall: No suspicious bony lesions. Overlying soft tissues appear unremarkable. IMPRESSION: No acute cardiopulmonary abnormality is seen. Dictated by: Tara Wild M.D. on 08/24/2025 at 10:36 Approved by: Tara Wild M.D. on 08/24/2025 at 10:38 CT - cervical spine: Radiologist's Impression: PROCEDURE: CT CERVICAL SPINE WO CON INDICATIONS: Fall TECHNIQUE: Noncontrast 3 mm thick sections acquired from the skull base to the T4 level. Sagittal and coronal reformats were then constructed. For radiation dose reduction, the following was used: automated exposure control, adjustment of mA and/or kV according to patient size. COMPARISON: None. FINDINGS: Image quality: Excellent. Bones: No fractures or dislocations. Visualized superior ribs are intact. Degenerative changes of the cervical spine are mild. Soft tissues: Prevertebral soft tissues are normal in thickness. No paravertebral hematomas. No apical pneumothoraces. IMPRESSION: No displaced fracture or traumatic subluxation. MDM Narrative Medical decision making narrative: 74 years old female with history of dementia, hypertension, atrial fibrillation on warfarin brought in by an ambulance today complaining of fall on Monday and was on the floor all night Monday night. Her family got her up on Monday morning. She has abrasion on the left elbow but denied any pain left elbow and was able to move her left elbow without pain or difficulty. She denied any headache, neck pain, back pain, chest pain, abdominal pain, shortness of breath, nausea vomiting, numbness weakness on her arms or legs, nausea vomiting, loss of consciousness. She moves all extremities. Equal sensation on both arms and legs. She is awake and follow commands, answering questions appropriately. She has no acute distress. She is alert and awake without acute distress. Her CV exam, lung exam, abdominal exam were normal. Her CBC showed hemoglobin 17.2 otherwise normal CBC. Her PT 48.8 INR 4.5. Her sodium 135 BUN 27, creatinine 1.14 otherwise normal BNP. Her LFT show AST 559 and ALT 146 otherwise normal LFT. Her CT brain, C-spine, chest x-ray, CT chest abdomen and pelvis showed no acute finding. her CK came back elevated and the patient was admitted for confusion, rhabdomyolysis. She was given IV fluid in the ED. I discussed the case with our hospitalist and the patient was accepted to the hospital. Discharge Plan Departure Patient Disposition: Admitted As Inpatient Clinical Impression: Rhabdomyolysis, Adult failure to thrive, History of dementia Admit Date/Time: 08/25/25 13:01 Admit Provider: Stan Gonzalez V
--- NOTE | 2025-08-24 11:10 | PC.NURSE ---
Ashely sister in law, states patient recent diagnosis of lewey body dementia with parkinsonism, neurology at [facility]. Family concerned about in home care resources. Family concerned about her intake and ability to complete ADLs
--- NOTE | 2025-08-24 11:18 | PC.NURSE ---
Report received, care assumed
[2025-08-24 13:36] LABS: Culture Indicated Urine Specimen Cultured
--- NOTE | 2025-08-24 14:46 | PC.NURSE ---
Family requesting update. Dr requesting a road test to see what patient's ambulation status is. Task to be performed. Provider will follow up with patient and family after assessment
--- NOTE | 2025-08-24 15:05 | PC.NURSE ---
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 pt. denied feeling dizzy or lightheaded, ambulated 30 ft in [place]. pt. back in room, call light within reach and 2 half sandwiches, water, cheese and crackers provided. call light within reach, pt. encouraged to use call light for needs.
[2025-08-24 15:18] LABS: Creatine Kinase 18060 U/L (30-135)
--- NOTE | 2025-08-24 15:19 | PM.HP.IH.1 ---
History of Present Illness History of Present Illness Date Patient Seen: 08/24/25 Time Patient Seen: 15:35 Chief complaint: Fall Narrative: 74-year-old woman under the primary care of Dr. Damaris Alejandre states that 2 nights ago she fell while moving a box of kindling. She lives alone on [facility] and has recently been undergoing evaluation for possible Lewy body dementia, with skin biopsy for synuclein ordered but not yet done, and she has not started carbidopa levodopa yet as prescribed by her neurologist Dr. Tanya Washington. She is interviewed with her daughter Ashely who notes that they were trying to get through to her but unable, and the patient states that she was unable to get to her phone and call, and was down on the ground for at least 1 night and likely to. She has visual hallucinations involving animals, often do animals, but denies any paranoia or fearfulness. She was brought by paramedics to the emergency department for further evaluation and found to have rhabdomyolysis with CPK over 18,000 and a left elbow abrasion. She is admitted for further management and evaluation. [facility] Medical History A-fib AAA (abdominal aortic aneurysm) Back pain (10/2012) Cerebral microvascular disease Colon polyps (Unknown) Diastolic congestive heart failure Diverticulosis of colon (Unknown) Elevated LFTs Lichen planus-like keratosis (LPLK) halfway current use of anticoagulant therapy Osteomyelitis (~2012) Post-menopausal osteoporosis Postoperative confusion Uncompensated short term memory deficit Urinary urgency Surgical History History of AAA (abdominal aortic aneurysm) repair Hx of hysterectomy (Unknown) Social History Smoking Status: Former smoker second hand exposure: No alcohol intake: current substance use type: does not use Meds Home Medications and Allergies Home Medications ?Medication ?Instructions ?Recorded ?Confirmed ?Type Disabled parking permit #1 ea 09/17/18 07/01/25 Rx lisinopril 2.5 mg tablet See Rx Instructions .Route 05/31/21 07/01/25 Rx .COMPLEX #90 tabs Disabled Parking Permit See Rx Instructions .Route 08/01/22 07/01/25 Rx .COMPLEX #1 unit celecoxib 200 mg capsule (Celebrex) 200 mg PO BID 01/22/24 07/01/25 History furosemide 20 mg tablet See Rx Instructions .Route 04/03/24 07/01/25 Rx .COMPLEX #90 tabs metoprolol succinate 100 mg 100 mg PO BID #180 tabs 06/10/24 07/01/25 Rx tablet,extended release 24 hr spironolactone 25 mg tablet See Rx Instructions .Route 06/10/24 07/01/25 Rx .COMPLEX #45 tabs warfarin 5 mg tablet 5 mg PO QTUTH #30 tabs 06/12/24 08/14/25 Rx magnesium oxide 400 mg (241.3 mg See Rx Instructions .Route 08/27/24 07/01/25 Rx magnesium) tablet .COMPLEX #90 tabs estradiol 0.01% (0.1 mg/gram) 1 appful vaginal 2XW #42.5 grams 05/15/25 07/01/25 Rx vaginal cream carbidopa 25 mg-levodopa 100 mg 1 tab PO TID tremors 07/22/25 07/22/25 History tablet warfarin 3 mg tablet 3 mg PO .COMPLEX #60 tabs 07/31/25 08/14/25 Rx Allergies Allergy/AdvReac Type Severity Reaction Status Date / Time Penicillins (PENICILLINS) Allergy Severe HIVES AND Verified 08/24/25 09:45 COULD NOT BREATHE Sulfa (Sulfonamide Allergy Mild HIVES Verified 08/24/25 09:45 Antibiotics) (SULFA (SULFONAMIDE ANTIBIOTICS)) bee venom protein (honey bee) Allergy swelling Verified 08/24/25 09:45 at site of sting cephalexin AdvReac Intermediate Diahrrea, Verified 08/24/25 09:45 sick to stomach, hard to tolerate vancomycin (VANCOMYCIN) AdvReac Intermediate bottom of Verified 08/24/25 09:45 feet red and rash Review of Systems Review of Systems ROS: Yes All systems reviewed with the patient and are negative except as otherwise documented Exam Vital Signs (past 8 hours): - 08/24/25 09:36 08/24/25 09:36 08/24/25 09:45 Temperature 97.6 F Pulse Rate 93 H 110 H Respiratory Rate 12 Blood Pressure 117/71 104/80 Pulse Oximetry 98 98 Oxygen Delivery Method Room Air 08/24/25 10:00 08/24/25 10:00 08/24/25 12:40 Temperature Pulse Rate 82 72 Respiratory Rate 16 Blood Pressure 108/72 Pulse Oximetry 99 97 Oxygen Delivery Method 08/24/25 12:40 08/24/25 13:00 08/24/25 13:01 Temperature Pulse Rate 59 L 59 L Respiratory Rate Blood Pressure 115/67 Pulse Oximetry 91 96 Oxygen Delivery Method 08/24/25 13:01 Temperature Pulse Rate Respiratory Rate Blood Pressure 96/72 Pulse Oximetry Oxygen Delivery Method Oxygen Delivery Method Room Air Narrative Exam Narrative: GENERAL: This is a well-nourished, well-developed patient, in no apparent distress. HEAD: Atraumatic. Normocephalic. No temporal or scalp tenderness. EYES: Pupils equal round and reactive. Extraocular motions intact. No scleral icterus. No injection or drainage. ENT: Mucous membranes pink and moist. NECK: Trachea midline. No JVD, bruits or lymphadenopathy. Supple, nontender, no meningeal signs. CARDIOVASCULAR: Regular rate and rhythm without murmurs, gallops, or rubs. RESPIRATORY: Clear to auscultation. GASTROINTESTINAL: Abdomen soft, non-tender, nondistended. EXTREMITIES: No clubbing, cyanosis, or edema. BACK: Nontender without deformity or crepitance. No flank tenderness. NEUROLOGIC: Alert, oriented, speech fluent, full upper and lower motor strength, no focal deficits evident. DERMATOLOGIC: Left elbow 2 cm healing eschar, mildly tender with mild surrounding swelling and erythema. Objective ECG Impression: Atrial fibrillation at 92 beats per minute, anterior Q-waves, half to [address]-depression in V4 and V5 Imaging *: Radiologist's impression: 1. Head CT 08/24/2025: No acute intracranial pathology. Acute bilateral maxillary sinusitis. 2. Chest/abdomen/pelvis CT 08/24/2025: No evidence of traumatic injury to the chest, abdomen or pelvis. 3. Cervical spine CT 08/24/2025: No displaced fracture or traumatic subluxation. 4. Chest x-ray 08/24/2025: No acute cardiopulmonary abnormality is seen. 5. Brain MRI 05/01/2025: Mild microvascular atherosclerotic change scattered within the deep white matter of each hemisphere. No chronic or subacute ischemic injury is found. 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 No adjacent cerebellar edema is associated. The adjacent cranial nerves appear free of involvement but are positioned in close proximity to the anterior border of this meningeal mass. Neurosurgical consultation is recommended. 6. Echocardiogram 05/01/2025: 1) Moderately dilated left ventricle with moderately to severely reduced function (EF 30-35%). 2) Mildly enlarged right ventricle with normal function. 3) The left atrium is severely dilated. 4) There is mild to moderate mitral regurgitation. There is mild to moderate tricuspid regurgitation. 5) Compared to the Echo done 04/17/2023, no significant change. Labs 08/24/25 09:55 08/24/25 09:55 Labs: Laboratory Results - last 24 hr 08/24/25 08/24/25 09:55 12:20 WBC 6.7 RBC 5.35 H Hgb 17.2 H Hct 50.0 H MCV 93.5 MCH 32.2 MCHC 34.4 RDW 13.8 Plt Count 165 Neut % (Auto) 76.1 H Lymph % (Auto) 14.0 L [place] % (Auto) 8.2 Eos % (Auto) 0.7 L Baso % (Auto) 1.0 Neut # (Auto) 5100 Lymph # (Auto) 900 L [place] # (Auto) 600 Eos # (Auto) 0 Baso # (Auto) 100 PT 48.8 H INR 4.5 H Sodium 135 L Potassium 4.3 Chloride 99 Carbon Dioxide 26 BUN 27 H Creatinine 1.14 H Estimated GFR 51 L BUN/Creatinine Ratio 23.7 H Glucose 128 H Calcium 9.4 Total Bilirubin 2.9 H AST 589 H ALT 146 H Alkaline Phosphatase 74 Total Creatine Kinase 28499 H Total Protein 7.2 Albumin 4.2 Globulin 3.0 Albumin/Globulin Ratio 1.4 Urine RBC 0-1/hpf Urine WBC 5-10/hpf H Ur Squamous Epith Cells 0-1 /hpf Urine Bacteria Many (>30) H Hyaline Casts 0-1/lpf Ur Culture Indicated? Specimen cultured Vol Urine Centrifuged 10ml (spun) Assessment & Plan Assessment & Plan narrative: 1. Ground level fall with left elbow abrasion and rhabdomyolysis. 2. Probable urinary tract infection in a patient with chronic recurrent urinary tract infections. 3. Acute kidney injury due to 1 and 2. 3. Probable Lewy body dementia. 4. Chronic systolic congestive heart failure. 5. Chronic atrial fibrillation. 6. Chronic anticoagulation with supra therapeutic INR. 7. Hypertension. 8. Hyperlipidemia. 9. History of AAA, status post repair. Plan: -admit to observation -IV hydration -monitor CPK, renal function -check troponin, rule out myocardial injury -hold lisinopril, spironolactone, furosemide and Celebrex given CALLI -hold metoprolol given relative hypotension -hold warfarin and monitor INR -hold carbidopa levodopa, noting she has not yet started this DVT prophylaxis: Addressed with supratherapeutic INR, continue to monitor Code status: Full code. The patient states this medical wish on admission. She also states that her designated surrogate decision maker is her daughter Ashely but has not yet formally completed paperwork. Time-Based Coding :: Quality MIPS - Admit I confirm the patient?s Advance Care Plan is present, Code status is documented, Surrogate decision maker is in patient?s record [If Yes, STOP here]: Yes [facility] - Meds 'Current medications' to include all prescriptions, onul-vny-[id number] products, herbals, cannabis/cannabidiol products, and vitamin/mineral/dietary (nutritional) supplements. I have utilized all available resources to obtain, update, or review the patient?s current medications. [If Yes, STOP here]: Yes PROFEE Sliver Former Document charge(s): No Charge Codes Initial inpatient/observation care: [id number]
--- NOTE | 2025-08-24 16:03 | CM.IDA ---
Initial DCP Assessment Patient is 74 y/o female who presents to ED via EMS due to concern for increased weakness, GLF on thinners, found down on Monday, assisted back up by family on Monday morning. Patient's PCP is Dr. Haney, patient has Medicare and AARP insurance. Patient also sees Neurologist Dr. Washington at [facility]. Patient has dx of Lewey Body Dementia, hx of Hypertension, Afib on Warfin. Patient is present in the ED with her sister in law who reports concern for patient's recent GLFs and increase in confusion. Patient resides alone on [facility], it is reported that patient's Neurologist recommended that patient stop driving. Patient has been receiving rides from friends and family. Patient has family and friends that check on her regularly who also reside on [facility]. Patient has typically been able to manage ADLs but it is reported that patient has been struggling in the last week. It is reported that family and friends often provide food for patient. Patient uses a cane to ambulate. Patient was able to ambulate with FWW with standby assist in ED. Patient is A/O to self, person, place and month, patient did think it was the year 2025 though. Patient presents as pleasant. SUPERVISOR STAVE FINISHING discusses plan of care wishes. It is reported that Ashely patient's sister in law is informally identified as POA. It is reported that the family preference is to keep patient at home with hopes to hire a caregiver. Patient is open to home health referral upon d/c as it is reported that patient has been unable to make outpatient PT appts with . [facility] serves [facility]. It is identified that patient's family and friends have made a recent APS report and patient met with APS due to concern the condition of patient's home, there is report of clutter and concern for patient's independence in caring for her self. SUPERVISOR STAVE FINISHING provides patient's MALLORIE with paperwork for POA, lists of caregivers and agencies, senior resources guide, elder law information, and information about personal emergency response systems. Hospitalist encourages patient and family to complete POLST and POA paperwork while patient is in the hospital. Patient was admitted by hospitalist due to concern for Rhabdomyolysis, failure to thrive, and GLFs. SUPERVISOR STAVE FINISHING to notify patient's PCP clinic Plan: patient admitted as OBS for further treatment and evaluation, DCP to f/u with POC, patient would benefit from PT and OT eval for SLUMS. Likely plan for home with [facility] and family to hire caregivers. DALIA Garcia Discharge Planning/Care Management CM Discharge Assessment Start: 08/24/25 15:44 Freq: Status: Active Protocol: Document 08/24/25 15:54 LN (Rec: 08/24/25 15:58 LN [id number]) Discharge Planning Assessment Assigned Discharge DALIA Jesus Section Gang Worker Insurance AARP [facility],Medicare DPOA/Assigned Ashely Duran/Sister in Law Designee Name Contact Information [phone] Advance Directives? No Advance Directives No on File History Provided By Patient,Family Member,Medical Record Has Patient been No admitted in last 30 days? Prior Living House Arrangements Household Members none Type of Relies on Others transporation used prior to admit Independent with ADL Yes: At baseline 's Is patient alert and Yes oriented? Needs Assistance Meal Prep,Managing Medications,Home Chores / Shopping With Community Services Physical Therapy used prior to admission: Comment Patient has outpatient PT with [facility] but has been unable to make it to recent appts. DME Already Rented / Cane Owned Patient/Family Home with Home Health Preference Comment Patient and family interested in home with home health and hoping to hire a caregiver. Patient has current outpatient PT but has not been going to appts. SNF/HH Preference [facility]
[2025-08-24 16:24] LABS: Troponin I 0.019 ng/mL (0.01-0.034)
[2025-08-24] MEDS: SODIUM CHLORIDE 0.45% 1,000 ML 125 ML IV (18:20)
[2025-08-24] MEDS: levoFLOXacin 500 MG/100 ML PIGGYBACK 100 MG IV (18:21)
[2025-08-25 03:00] VITALS: BP 121/73; PULSE 85; RESP 17; O2SAT 97
[2025-08-25] MEDS: SODIUM CHLORIDE 0.45% 1,000 ML 125 ML IV ×3 (03:01→19:55)
[2025-08-25 05:22] LABS: Add Manual Diff / Slide Review NO; Hematocrit 47.5 % (36-46); Hemoglobin 16.3 g/dL (12.0-16.0); Lymphocytes Absolute Auto 1300 /uL (1100-4500); Mean Corpuscular HGB Conc 34.3 % (30-36); Mean Corpuscular Hemoglobin 32.1 PG (26-34); Mean Corpuscular Volume 93.6 fL (80-100); Platelet Count 161 X10^3/uL (150-400)
[2025-08-25 05:35] LABS: Alanine Aminotransferase 129 IU/L (<35); Albumin 3.7 g/dL (3.5-5.0); Albumin Globulin Ratio 1.3 (1.0-2.8); Alkaline Phosphatase 63 U/L (38-126); Blood Urea Nitrogen 31 mg/dL (7-17); Calcium 9.1 mg/dL (8.4-10.2); Carbon Dioxide 27 mmol/L (22-32); Chloride 98 mmol/L (98-107); Estimated Glomerular Filt Rate 60 mL/min (>60); Globulin 2.8 g/dL (1.7-4.1); Glucose 103 mg/dL (70-99); HEMOLYSIS 18 (0-50); Potassium 3.8 mmol/L (3.4-5.1); Sodium 133 mmol/L (137-145); Total Protein 6.5 g/dL (6.3-8.2)
[2025-08-25 05:36] LABS: Magnesium 2.0 mg/dL (1.6-2.3)
[2025-08-25 05:46] LABS: Troponin I 0.013 ng/mL (0.01-0.034)
[2025-08-25 05:57] LABS: Creatine Kinase 8385 U/L (30-135)
[2025-08-25 06:06] LABS: Thyroid Stimulating Hormone 3.52 uIU/mL (0.47-4.68)
[2025-08-25 07:00] VITALS: BP 106/74; PULSE 78; RESP 17; TEMP 36; O2SAT 97
--- NOTE | 2025-08-25 10:21 | PC.NURSE ---
Patient is pleasant, she has been a&ox3, but can be forgetful. She has some bruising from her fall, her hand is soar with a purple bruise, states that she doesnt want to have any more pokes. Resting comfortably, she ate and med list has been updated.
[2025-08-25 11:21] VITALS: BP 106/77; PULSE 84
[2025-08-25] MEDS: METOPROLOL ER 50 MG TABLET 100 MG PO (11:21)
[2025-08-25] MEDS: MAGNESIUM OXIDE 400 MG TABLET PO (11:23)
--- NOTE | 2025-08-25 13:08 | P.PN_ITS ---
Subjective Subjective Interval history: Summary: 74-year-old woman under the primary care of Dr. Damaris Alejandre states that 2 nights ago she fell while moving a box of kindling. She lives alone on [facility] and has recently been undergoing evaluation for possible Lewy body dementia, with skin biopsy for synuclein ordered but not yet done, and she has not started carbidopa levodopa yet as prescribed by her neurologist Dr. Tanya Washington. She is interviewed with her daughter Ashely who notes that they were trying to get through to her but unable, and the patient states that she was unable to get to her phone and call, and was down on the ground for at least 1 night and likely to. She has visual hallucinations involving animals, often do animals, but denies any paranoia or fearfulness. She was brought by paramedics to the emergency department for further evaluation and found to have rhabdomyolysis with CPK over 18,000 and a left elbow abrasion. She is admitted for further management and evaluation. S: She was doing well, some confusion and generalized weakness. No pain. O: VSS. NAD, fluent speech. Lungs are clear, normal effort. Heart is regular, no murmur. Abdomen is nondistended. No leg edema. SLUMS: . IMAGIN. Head CT 08/24/2025: No acute intracranial pathology. Acute bilateral maxillary sinusitis. 2. Chest/abdomen/pelvis CT 08/24/2025: No evidence of traumatic injury to the chest, abdomen or pelvis. 3. Cervical spine CT 08/24/2025: No displaced fracture or traumatic subluxation. 4. Chest x-ray 08/24/2025: No acute cardiopulmonary abnormality is seen. 5. Brain MRI 05/01/2025: Mild microvascular atherosclerotic change scattered within the deep white matter of each hemisphere. No chronic or subacute ischemic injury is found. 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 No adjacent cerebellar edema is associated. The adjacent cranial nerves appear free of involvement but are positioned in close proximity to the anterior border of this meningeal mass. Neurosurgical consultation is recommended. 6. Echocardiogram 05/01/2025: 1) Moderately dilated left ventricle with moderately to severely reduced function (EF 30-35%). 2) Mildly enlarged right ventricle with normal function. 3) The left atrium is severely dilated. 4) There is mild to moderate mitral regurgitation. There is mild to moderate tricuspid regurgitation. 5) Compared to the Echo done 04/17/2023, no significant change. A/P: 1. Ground level fall with left elbow abrasion and rhabdomyolysis. 2. Probable urinary tract infection in a patient with chronic recurrent urinary tract infections. 3. Acute kidney injury due to 1 and 2. 3. Probable Lewy body dementia. 4. Chronic systolic congestive heart failure. 5. Chronic atrial fibrillation. 6. Chronic anticoagulation with supra therapeutic INR. 7. Hypertension. 8. Hyperlipidemia. 9. History of AAA, status post repair. PLAN: -continue IV fluids -ongoing therapies assessment for discharge planning. -continue holding lisinopril, spironolactone, Celebrex, and furosemide. -Hold warfarin per pharmacy, recheck INR tomorrow. Needs a 2nd midnight of inpatient hospital care. Treatment for volume depletion, abnormal mental cognition, warfarin induced coagulopathy. Exam Vital Signs (past 8 hours): - 08/25/25 07:00 08/25/25 11:21 Temperature 96.8 F L Pulse Rate 78 84 Respiratory Rate 17 Blood Pressure 106/74 106/77 Pulse Oximetry 97 Oxygen Flow Rate 0 Oxygen Delivery Method Room Air Oxygen Flow Rate 0 Objective Labs 08/25/25 04:30 08/25/25 04:30 Labs: Laboratory Results - last 24 hr 08/24/25 08/24/25 08/24/25 09:55 12:20 15:50 WBC RBC Hgb Hct MCV MCH MCHC RDW Plt Count Neut % (Auto) Lymph % (Auto) [place] % (Auto) Eos % (Auto) Baso % (Auto) Neut # (Auto) Lymph # (Auto) [place] # (Auto) Eos # (Auto) Baso # (Auto) Sodium Potassium Chloride Carbon Dioxide BUN Creatinine Estimated GFR BUN/Creatinine Ratio Glucose Calcium Magnesium Total Bilirubin AST ALT Alkaline Phosphatase Total Creatine Kinase 13508 H Troponin I 0.019 Total Protein Albumin Globulin Albumin/Globulin Ratio TSH Urine RBC 0-1/hpf Urine WBC 5-10/hpf H Ur Squamous Epith Cells 0-1 /hpf Urine Bacteria Many (>30) H Hyaline Casts 0-1/lpf Ur Culture Indicated? Specimen cultured Vol Urine Centrifuged 10ml (spun) 08/25/25 04:30 WBC 5.1 RBC 5.08 Hgb 16.3 H Hct 47.5 H MCV 93.6 MCH 32.1 MCHC 34.3 RDW 13.6 Plt Count 161 Neut % (Auto) 59.1 Lymph % (Auto) 26.5 [place] % (Auto) 10.1 Eos % (Auto) 3.0 Baso % (Auto) 1.3 Neut # (Auto) 3000 Lymph # (Auto) 1300 [place] # (Auto) 500 Eos # (Auto) 200 Baso # (Auto) 100 Sodium 133 L Potassium 3.8 Chloride 98 Carbon Dioxide 27 BUN 31 H Creatinine 0.99 Estimated GFR 60 BUN/Creatinine Ratio 31.3 H Glucose 103 H Calcium 9.1 Magnesium 2.0 Total Bilirubin 1.8 H AST 393 H ALT 129 H Alkaline Phosphatase 63 Total Creatine Kinase 8385 H D Troponin I 0.013 Total Protein 6.5 Albumin 3.7 Globulin 2.8 Albumin/Globulin Ratio 1.3 TSH 3.52 Urine RBC Urine WBC Ur Squamous Epith Cells Urine Bacteria Hyaline Casts Ur Culture Indicated? Vol Urine Centrifuged COUNTS INCLUDE 234 BEDS AT THE [facility] Medical History A-fib AAA (abdominal aortic aneurysm) Back pain (10/2012) Cerebral microvascular disease Colon polyps (Unknown) Diastolic congestive heart failure Diverticulosis of colon (Unknown) Elevated LFTs Lichen planus-like keratosis (LPLK) manager terminal current use of anticoagulant therapy Osteomyelitis (~2012) Post-menopausal osteoporosis Postoperative confusion Uncompensated short term memory deficit Urinary urgency Surgical History History of AAA (abdominal aortic aneurysm) repair Hx of hysterectomy (Unknown) Social History household members: none Smoking Status: Former smoker second hand exposure: No alcohol intake: current substance use type: does not use Assessment & Plan Time-Based Coding :: [TOTAL MINUTES] spent with patient and on the chart (including review of chart, obtaining history, exam, reviewing outside data, placing orders, documenting exam and treatment plan, and counseling patient) on [DATE].
--- NOTE | 2025-08-25 13:48 | OT.IP.EVAL ---
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 Pt requires additional time, at times, to answer questions and occasionally needs question repeated Mobility and Gait Pt reports amb with a cane in her home. Activities of Daily Pt reports being able to perform her own BADLs, manage Living and IADL's medications, light housework, and driving. Pt has family near by who brings her meals. Social History Household Members none Living Arrangements House Number of Floors ( 3 or More Floors Floors) Number of Stairs To Pt reports that main floor living is possible, but that Enter/Railing? she prefers to shower upstairs. She has 3 steps to enter from outside with R railing. She reports 12 steps between flights with B rails. Home Environment Standard Height Toilet,Walk in Shower Home Equipment Straight Cane,Grab Bars Near Toilet Employment Status Retired M2 OT-IP Current Condition Start: 08/25/25 13:19 Freq: Status: Active Protocol: Document 08/25/25 13:19 JOE (Rec: 08/25/25 13:45 JOE Desktop) Occupational Therapy Current Condition Current Condition Evaluation Date 08/25/25 Treatment Diagnosis s/p GLF, UTI, decreased self care Diagnosis Onset Date 08/24/25 M3 OT- IP Subjective and Pain Start: 08/25/25 13:19 Freq: Status: Active Protocol: Document 08/25/25 13:19 MALLORIEDIALLOJUSTICE (Rec: 08/25/25 13:45 [facility]) OT- Subjective Occupational Therapy Visit Type Type Initial Evaluation Visit Start Time 11:55 Visit Stop Time 12:39 Occupational Therapy Visit Comments Patient Comments Pt reclined in bed on entrance of OT. Pt agreeable to participating in OT evaluation and getting up to chair. OT Pain Assessment Pain When Pain Assessed At Rest Pain Present Pain Present Pain Reported Location Right Wrist Intensity 1 Scale Used Numeric (0 - 10) M4 OT- IP ADL's Start: 08/25/25 13:19 Freq: Status: Active Protocol: Document 08/25/25 13:19 MALLORIEDIALLOJUSTICE (Rec: 08/25/25 13:45 [facility]) OT BXK-Ksyf-Sdkmxjp General Evaluation Self-Feeding Ability Standby Assistance Areas Needing Opening Containers Assistance OT ADL-Grooming General Evaluation Grooming Ability Standby Assistance Comments OT Grooming Comments Pt is able to wash hands on setup OT ADL-Oral Care Comments Oral Care Comments not observed OT ADL-Dressing General Eval Lower Body Dressing Total Assistance Ability Comments OT Dressing Comments Pt unable to assist with socks or brief OT ADL-Toileting General Evaluation Toileting Ability Total Assistance Comments OT Toileting Pt is dependent on pure wick and brief. She reports Comments recent incontinence at home. OT ADL-Bathing Comments OT Bathing Comments not observed, sponge bath would be best at this time. M5 OT- IP IADL's Start: 08/25/25 13:19 Freq: Status: Active Protocol: Document 08/25/25 13:19 JOE (Rec: 08/25/25 13:45 [facility]) OT-Instrumental Activities of Daily Living Deficits IADL Deficits Deficits Identified Home Safety Awareness Awareness of Need Decreased Awareness for Assistance at Home Ability to Problem Unable to Problem Solve Solve Emergency Situations Home Safety Comments Pt believes she is safe to return home in her current status. OT reminded pt of the amount of assistance she required to get out of bed and asked if she would be able to do that on her own. Pt agreed that she could not. OT stresses the safety concern about not being able to manage yourself in your home and gave the example of needing to get out of the house in case of a fire. Medication Management Medication Pt reports she administers. Pt would benefit from Management Comments further safety at performing this task. Money Management Money Management may need supervision. Comments Meal Preparation Meal Preparation Caregiver Provides Assist Loan Officer Assistant Loan Officer Assistant will need assist Comments Driving Driving Comments pt reports she drives, likely needs assist M6 OT- IP Functional Cognition Start: 08/25/25 13:19 Freq: Status: Active Protocol: Document 08/25/25 13:19 JOE (Rec: 08/25/25 13:45 [facility] Desktop) Cognitive Factors Limiting Selfcare Function Cognitive Ability Level of Alertness Alert Patient Orientation Name,Age,Birthday,Year,Place,Situation Attention Span Capable of Focused Attention,Capable of Sustained Ability Attention Ability to Follow Able to Follow One Step Commands Commands Memory Description Short Term Impaired,Working Impaired Safety Awareness Underestimates Need for Assistance Problem Solving Unable to Identify Errors,Needs Assist to Identify Ability Solutions Cognitive Tests SLUMS Pt scored a 15/30 indicative of dementia. Pt is unable to state day of the week, to complete math question, is able to name 8 animals in 60 seconds, can recall 3/5 items after time, is unable to state 4 digit number backwards, is unable to correctly label clock, and answers 3/4 questions from short story. Cognitive Comments Cognitive Assessment Pt has decreased safety awareness. Pt believes she is Comments safe to take care of herself alone and needs OT to point out difficulties had over the course of the evaluation. Pt needs heavy cues for safety in maneuvering the FWW during tf to chair and heavy cues for hand placement for safety during transitions. Pt may benefit from additional cognitive assessments such as Rodger Pill. OT- Vision and Hearing OT- Hearing Assessment OT- Hearing WFL Assessment OT- Vision Assessment Visual Acuity WFL Vision Assessment Pt wears glasses for distance. Comments M7 OT- IP Mobility and Balance Start: 08/25/25 13:19 Freq: Status: Active Protocol: Document 08/25/25 13:19 JOE (Rec: 08/25/25 13:45 [facility] Desktop) OT- Bed Mobility Assessment Supine to Sit Supine to Sit Assist Minimal Assistance,Head of Bed Elevated,Bedrails Scooting Scooting to Edge of Moderate Assistance,Maximum Assistance,1 Person Bed Assistance,Bedrails OT-Transfer Assessment Sit to and From Stand Sit to and from Moderate Assistance,1 Person Assistance,Use of Upper Stand Extremities Transfers Transfer Ability Moderate Assistance,Maximum Assistance,1 Person Assistance,Use of Upper Extremities Technique Transfer Destination Chair Transfer Technique Stand Step Pivot Devices Transfer Assistive Gait Belt,Front Wheeled Walker Devices Comments Mobility Comments Pt needs increased time to transition from sup>sit. Pt needs heavy cues for safety and use of hands on rails, pushing up from bed, and reaching back for chair including hand over hand assist to reach for arm of chair before sitting. Pt needs vcs to assist in feedback as pt felt like she was falling forward when she was leaning significantly posteriorly. Pt needs cues to get her bottom under her when t/fing and heavy cues to take larger steps and to maneuver the walker when tfing to chair. OT- Balance Assessment Sitting Balance and Reactions Static Sitting Fair Balance Ability Dynamic Sitting Fair Balance Ability Standing Balance and Reactions Static Standing Poor Balance Ability Dynamic Standing Poor Balance Ability M8 OT- IP Objective Assessments Start: 08/25/25 13:19 Freq: Status: Active Protocol: Document 08/25/25 13:19 JOE (Rec: 08/25/25 13:45 [facility] Desktop) OT Gross Range of Motion Upper Extremity Range of Motion Assessment Bilaterally Impaired ROM Impairments B shoulders ~120-140 degrees of scaption OT Strength Upper Extremity Strength Assessment Bilaterally Impaired Hand Cna Per Diem Strength Hand Dominance Right Comments Strength Comments B UEs grossly 4- to 4 from proximal to distal OT- Coordination Assessment Comments Coordination thumb to fingertips intact Comments OT-Muscle Tone Assessment Muscle Tone WNL Yes OT Sensation Assessment Edema Edema Absent M9 OT- IP Assessment and Plan Start: 08/25/25 13:19 Freq: Status: Active Protocol: Document 08/25/25 13:19 JOE (Rec: 08/25/25 13:45 [facility]) OT Summary Assessment and Plan Potential Rehabilitation Good Potential Analytic Complexity Moderate at Evaluation Summary OT Impairments Range of Motion,Strength,Balance,Functional Cognition, Functional Mobility,Self-Feeding,Grooming,Dressing, Toileting,Bathing,Toilet Transfers,Shower Transfers, Activity Tolerance Progress Towards Slow Progress due to Activity Tolerance,Slow Progress Goals due to Cognition Assessment Summary Pt is a 74-year-old woman that 2 nights ago fell while moving a box of [employer]nik[employer], she remained on the floor for at least 1 night possibly 2 before she was found by family. She lives alone on [address] and has recently been undergoing evaluation for possible Lewy body dementia. During OT eval, pt presents with decreased safety awareness, decreased STM, and decreased working memory. Pt needs heavy cues for safety in maneuvering the FWW during tf to chair and heavy cues for hand placement for safety during transitions. Pt may benefit from additional cognitive assessments such as Rodger Pill. Pt presents with decreased AROM of B shoulders, muscle weakness, decreased BADLs, and decreased functional tfs. Skilled OT services are appropriate to address these deficits and promote return towards PLOF. Pt would benefit from SNF to work to on stated deficits and promote return to PLOF. Pt will likely need increased assistance on eventual discharge home due to cognitive changes. Pt left up in chair with family present and all needs in reach. Goals Self-Feeding Goal Independent Grooming Goal Standby Assistance Dressing Goal Standby Assistance Toileting Goal Standby Assistance Bathing Goal Standby Assistance Toilet Transfer Goal Standby Assistance,Grab Bars Shower Transfer Goal Standby Assistance Days to Meet Goals 10 Frequency of Treatment Other frequency 5x/wk Treatment Plan OT Treatment Plan ADL Training,Functional Cognition Training,Functional Mobility,Therapeutic Exercises,Patient/Family Education ,Discharge Planning Other Treatment Rodger pillbox assessment Recommendations and Next Treatment Focus Discharge Recommendations OT Discharge SNF Rehab Recommendations Home Equipment Needs shower chair Transportation Needs Private Vehicle,Wheelchair/Cabulance at Discharge
--- NOTE | 2025-08-25 15:52 | CM.DPNOTE ---
DCP note HEAD ORTHOPEDIC TEAM PHYSICIAN Reviewed EMR per OT, ANTONETTE of . Rec SNF. PT pending. HEAD ORTHOPEDIC TEAM PHYSICIAN spoke with MALLORIE brink on the phone. working towards her and other friend becoming the DPOA. agreeable to SNF. planning on getting LTC CGs in the home for the long plan. ideally prefer [facility] or as close to home as possible. HEAD ORTHOPEDIC TEAM PHYSICIAN completed PASRR. HEAD ORTHOPEDIC TEAM PHYSICIAN sent ref information to Jocelyn at . acceptance pending. 3rd midnight would be dc 08/28 HEAD ORTHOPEDIC TEAM PHYSICIAN confirmed that [facility] at this time. P: ideally dc to if able to accept. CM team will continue to follow closely for DCP Coordination TYE Brar
[2025-08-25 16:30] VITALS: BP 116/73; PULSE 88; RESP 16; TEMP 36.1; O2SAT 97
[2025-08-25] MEDS: levoFLOXacin 500 MG/100 ML PIGGYBACK 100 MG IV (16:45)
[2025-08-25] MEDS: CARBOXYMETHYLCELLULOSE DROPS 1 DROPS EYE-BOTH (16:45)
[2025-08-25 20:00] VITALS: RESP 17; TEMP 36.7; O2SAT 96
[2025-08-25 20:40] VITALS: BP 88/63; PULSE 87
[2025-08-26] VITALS (8 sets, daily range): BP systolic 91–105; BP diastolic 53–76; PULSE 71–97; RESP 16–18; TEMP 34–37.2; O2SAT 96–98
[2025-08-26 05:10] LABS: Hematocrit 44.4 % (36-46); Hemoglobin 15.1 g/dL (12.0-16.0); Mean Corpuscular HGB Conc 33.9 % (30-36); Mean Corpuscular Hemoglobin 31.8 PG (26-34); Mean Corpuscular Volume 93.9 fL (80-100); Platelet Count 142 X10^3/uL (150-400)
[2025-08-26 05:18] LABS: INR 3.9 (0.9-1.3); Prothrombin Time 42.9 SECONDS (9.4-12.5)
[2025-08-26 05:23] LABS: Blood Urea Nitrogen 16 mg/dL (7-17); Calcium 8.7 mg/dL (8.4-10.2); Carbon Dioxide 27 mmol/L (22-32); Chloride 102 mmol/L (98-107); Estimated Glomerular Filt Rate > 60 mL/min (>60); Glucose 104 mg/dL (70-99); HEMOLYSIS < 15 (0-50); Potassium 4.4 mmol/L (3.4-5.1); Sodium 134 mmol/L (137-145)
[2025-08-26] MEDS: SODIUM CHLORIDE 0.45% 1,000 ML 125 ML IV (06:30)
--- NOTE | 2025-08-26 07:31 | PM.PN.1 ---
Subjective Subjective Interval history: Summary: Summary: 74-year-old woman under the primary care of Dr. Damaris Alejandre states that 2 nights ago she fell while moving a box of kindling. She lives alone on [address] and has recently been undergoing evaluation for possible Lewy body dementia, with skin biopsy for synuclein ordered but not yet done, and she has not started carbidopa levodopa yet as prescribed by her neurologist Dr. Tanya Washington. She is interviewed with her daughter Ashely who notes that they were trying to get through to her but unable, and the patient states that she was unable to get to her phone and call, and was down on the ground for at least 1 night and likely to. She has visual hallucinations involving animals, often do animals, but denies any paranoia or fearfulness. She was brought by paramedics to the emergency department for further evaluation and found to have rhabdomyolysis with CPK over 18,000 and a left elbow abrasion. She is admitted for further management and evaluation. 08/25: SLUMS . Weak with PT. S: No pain, or dyspnea. No nausea. No dyspnea, slept well last night. O: VSS. NAD, alert and oriented. Fluent speech. Lungs are clear, normal rate and effort. Heart is regular, no murmur gallop or rub. Abdomen is soft, non distended. Extremities are free of edema. IMAGIN. Head CT 08/24/2025: No acute intracranial pathology. Acute bilateral maxillary sinusitis. 2. Chest/abdomen/pelvis CT 08/24/2025: No evidence of traumatic injury to the chest, abdomen or pelvis. 3. Cervical spine CT 08/24/2025: No displaced fracture or traumatic subluxation. 4. Chest x-ray 08/24/2025: No acute cardiopulmonary abnormality is seen. 5. Brain MRI 05/01/2025: Mild microvascular atherosclerotic change scattered within the deep white matter of each hemisphere. No chronic or subacute ischemic injury is found. 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 No adjacent cerebellar edema is associated. The adjacent cranial nerves appear free of involvement but are positioned in close proximity to the anterior border of this meningeal mass. Neurosurgical consultation is recommended. 6. Echocardiogram 05/01/2025: 1) Moderately dilated left ventricle with moderately to severely reduced function (EF 30-35%). 2) Mildly enlarged right ventricle with normal function. 3) The left atrium is severely dilated. 4) There is mild to moderate mitral regurgitation. There is mild to moderate tricuspid regurgitation. 5) Compared to the Echo done 04/17/2023, no significant change. A/P: 1. Ground level fall with left elbow abrasion and rhabdomyolysis. 2. Probable urinary tract infection in a patient with chronic recurrent urinary tract infections. 3. Acute kidney injury due to 1 and 2. 3. Probable Lewy body dementia. 4. Chronic systolic congestive heart failure. 5. Chronic atrial fibrillation. 6. Chronic anticoagulation with supra therapeutic INR. 7. Hypertension. 8. Hyperlipidemia. 9. History of AAA, status post repair. PLAN: -discontinue IV fluids -ongoing therapies assessment for discharge planning. -continue holding lisinopril, spironolactone, Celebrex, and furosemide. -Hold warfarin per pharmacy, INR 3.9. Needs another midnight of inpatient hospital care. Treatment for abnormal mental cognition and warfarin induced coagulopathy. Exam Vital Signs (past 8 hours): - 08/26/25 00:00 08/26/25 04:00 Temperature 97.6 F 97.8 F Pulse Rate 80 76 Respiratory Rate 17 16 Blood Pressure 98/76 93/75 Pulse Oximetry 97 98 Oxygen Flow Rate 0 0 Oxygen Delivery Method Room Air Oxygen Flow Rate 0 Objective Labs 08/26/25 04:45 08/26/25 04:45 Labs: Laboratory Results - last 24 hr 08/26/25 04:45 WBC 5.3 RBC 4.73 Hgb 15.1 Hct 44.4 MCV 93.9 MCH 31.8 MCHC 33.9 RDW 13.5 Plt Count 142 L PT 42.9 H D INR 3.9 H Sodium 134 L Potassium 4.4 Chloride 102 Carbon Dioxide 27 BUN 16 Creatinine 0.87 Estimated GFR > 60 BUN/Creatinine Ratio 18.4 Glucose 104 H Calcium 8.7 PFSH Medical History A-fib AAA (abdominal aortic aneurysm) Back pain (10/2012) Cerebral microvascular disease Colon polyps (Unknown) Diastolic congestive heart failure Diverticulosis of colon (Unknown) Elevated LFTs Lichen planus-like keratosis (LPLK) 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 Osteomyelitis (~2012) Post-menopausal osteoporosis Postoperative confusion Uncompensated short term memory deficit Urinary urgency Surgical History History of AAA (abdominal aortic aneurysm) repair Hx of hysterectomy (Unknown) Social History household members: none Smoking Status: Former smoker second hand exposure: No alcohol intake: current substance use type: does not use Assessment & Plan Time-Based Coding :: [TOTAL MINUTES] spent with patient and on the chart (including review of chart, obtaining history, exam, reviewing outside data, placing orders, documenting exam and treatment plan, and counseling patient) on [DATE].
[2025-08-26] MEDS: MAGNESIUM OXIDE 400 MG TABLET PO (10:06)
[2025-08-26] MEDS: METOPROLOL ER 50 MG TABLET 100 MG PO ×2 (10:06→20:53)
--- NOTE | 2025-08-26 12:51 | CM.DPNOTE ---
DCP note BASKET MAKER reviewed EMR per Jocelyn at , can accept pt . BASKET MAKER updated friend/soon to be DPOA Ashely. in agreement with plan. will be visiting pt tomorrow with mobile notingalls for HC DPOA/financial POA ppwk. BASKET MAKER answered questions to best of ability. P: dc to pending medical stability. time pending. CM team will continue to follow closely for DCP coordination TYE Brar
--- NOTE | 2025-08-26 15:29 | OT.IP.TRT ---
Current Diagnoses Traumatic ischemia of muscle, initial encounter (08/25/25) Occupational Therapy Treatment Note M2 OT-IP Current Condition Start: 08/25/25 13:19 Freq: Status: Active Protocol: Document 08/25/25 13:19 JOE (Rec: 08/25/25 13:45 [place] Desktop) Occupational Therapy Current Condition Current Condition Evaluation Date 08/25/25 Treatment Diagnosis s/p GLF, UTI, decreased self care Diagnosis Onset Date 08/24/25 M3 OT- IP Subjective and Pain Start: 08/25/25 13:19 Freq: Status: Active Protocol: Document 08/26/25 15:30 CCC (Rec: 08/26/25 15:44 CCC Desktop) OT- Subjective Occupational Therapy Visit Type Type Treatment Note Visit Start Time 15:05 Visit Stop Time 15:29 Occupational Therapy Visit Comments Patient Comments Pt agreed to get up after encouragement. OT Pain Assessment Pain When Pain Assessed At Rest Pain Present Pain Present Pain Reported Location Right Knee Pain Behaviors Facial Grimacing,Holding Area M4 OT- IP ADL's Start: 08/25/25 13:19 Freq: Status: Active Protocol: Document 08/25/25 13:19 JOE (Rec: 08/25/25 13:45 [place] Desktop) OT [id number] General Evaluation Self-Feeding Ability Standby Assistance Areas Needing Opening Containers Assistance OT ADL-Grooming General Evaluation Grooming Ability Standby Assistance Comments OT Grooming Comments Pt is able to wash hands on setup OT ADL-Oral Care Comments Oral Care Comments not observed OT ADL-Dressing General Eval Lower Body Dressing Total Assistance Ability Comments OT Dressing Comments Pt unable to assist with socks or brief OT ADL-Toileting General Evaluation Toileting Ability Total Assistance Comments OT Toileting Pt is dependent on pure wick and brief. She reports Comments recent incontinence at home. OT ADL-Bathing Comments OT Bathing Comments not observed, sponge bath would be best at this time. M5 OT- IP IADL's Start: 08/25/25 13:19 Freq: Status: Active Protocol: Document 08/25/25 13:19 JOE (Rec: 08/25/25 13:45 [place] Desktop) OT-Instrumental Activities of Daily Living Deficits IADL Deficits Deficits Identified Home Safety Awareness Awareness of Need Decreased Awareness for Assistance at Home Ability to Problem Unable to Problem Solve Solve Emergency Situations Home Safety Comments Pt believes she is safe to return home in her current status. OT reminded pt of the amount of assistance she required to get out of bed and asked if she would be able to do that on her own. Pt agreed that she could not. OT stresses the safety concern about not being able to manage yourself in your home and gave the example of needing to get out of the house in case of a fire. Medication Management Medication Pt reports she administers. Pt would benefit from Management Comments further safety at performing this task. Money Management Money Management may need supervision. Comments Meal Preparation Meal Preparation Caregiver Provides Assist Stroboroma Operator Stroboroma Operator will need assist Comments Driving Driving Comments pt reports she drives, likely needs assist M6 OT- IP Functional Cognition Start: 08/25/25 13:19 Freq: Status: Active Protocol: Document 08/26/25 15:30 [facility] (Rec: 08/26/25 15:44 [facility] Desktop) Cognitive Factors Limiting Selfcare Function Cognitive Ability Level of Alertness Confusional State Patient Orientation Name,Age,Birthday,Place,Situation Attention Span Capable of Focused Attention,Unable to Sustain Ability Attention Memory Description Short Term Impaired,Working Impaired Safety Awareness Underestimates Need for Assistance Cognitive Comments Cognitive Assessment Pt very slow to initiate movements and follow commands. Comments Pt still needing heavy cues and assist to move the FWW and for balance. M7 OT- IP Mobility and Balance Start: 08/25/25 13:19 Freq: Status: Active Protocol: Document 08/26/25 15:30 [facility] (Rec: 08/26/25 15:44 [facility] Desktop) OT- Bed Mobility Assessment Supine to Sit Supine to Sit Assist Maximum Assistance,1 Person Assistance Scooting Scooting to Edge of Maximum Assistance,1 Person Assistance Bed OT-Transfer Assessment Sit to and From Stand Sit to and from Maximum Assistance,1 Person Assistance Stand Transfers Transfer Ability Maximum Assistance,2 Person Assistance Technique Transfer Destination Chair Transfer Technique Stand Step Pivot Comments Mobility Comments Pt needing more assist today for bed mobility and transfer today. Pt insistent to keep the purewick tube in place for the transfers. At this time, best for nursing to use lory lift at this time for safety. OT- Balance Assessment Sitting Balance and Reactions Static Sitting Fair Balance Ability Dynamic Sitting Poor Balance Ability Standing Balance and Reactions Static Standing Poor Balance Ability Dynamic Standing Poor Balance Ability M8 OT- IP Objective Assessments Start: 08/25/25 13:19 Freq: Status: Active Protocol: Document 08/25/25 13:19 JOE (Rec: 08/25/25 13:45 [email or web address] Desktop) OT Gross Range of Motion Upper Extremity Range of Motion Assessment Bilaterally Impaired ROM Impairments B shoulders ~120-140 degrees of scaption OT Strength Upper Extremity Strength Assessment Bilaterally Impaired Hand Maintenance Mechanic Elevators Strength Hand Dominance Right Comments Strength Comments B UEs grossly 4- to 4 from proximal to distal OT- Coordination Assessment Comments Coordination thumb to fingertips intact Comments OT-Muscle Tone Assessment Muscle Tone WNL Yes OT Sensation Assessment Edema Edema Absent M9 OT- IP Assessment and Plan Start: 08/25/25 13:19 Freq: Status: Active Protocol: Document 08/26/25 15:30 CCC (Rec: 08/26/25 15:44 CCC Desktop) OT Summary Assessment and Plan Potential Rehabilitation Good Potential Analytic Complexity Moderate at Evaluation Summary OT Impairments Range of Motion,Strength,Balance,Functional Cognition, Functional Mobility,Self-Feeding,Grooming,Dressing, Toileting,Bathing,Toilet Transfers,Shower Transfers, Activity Tolerance Progress Towards Slow Progress due to Pain,Slow Progress due to Medical Goals Issues,Slow Progress due to Activity Tolerance,Slow Progress due to Cognition Assessment Summary Pt today needing more assist for mobility needs and needing MAX/TotalX2 for transfer with FWW. Pt needing more assist then on OT eval and complaining of right knee pain, nursing notified. Pt to go to skilled rehab when medically stable. Goals Self-Feeding Goal Independent Grooming Goal Standby Assistance Dressing Goal Standby Assistance Toileting Goal Standby Assistance Bathing Goal Standby Assistance Toilet Transfer Goal Standby Assistance,Grab Bars Shower Transfer Goal Standby Assistance Days to Meet Goals 25 Frequency of Treatment Other frequency 5x/wk Treatment Plan OT Treatment Plan ADL Training,Functional Cognition Training,Functional Mobility,Therapeutic Exercises,Patient/Family Education ,Discharge Planning Other Treatment Rodger pillbox assessment Recommendations and Next Treatment Focus Discharge Recommendations OT Discharge SNF Rehab Recommendations Home Equipment Needs shower chair Transportation Needs Wheelchair/Cabulance at Discharge
[2025-08-26] MEDS: levoFLOXacin 500 MG/100 ML PIGGYBACK 100 MG IV (15:40)
--- NOTE | 2025-08-26 15:41 | PT.IIE ---
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 Pt requires additional time, at times, to answer questions and occasionally needs question repeated Mobility and Gait Pt reports amb with a cane in her home. Activities of Daily Pt reports being able to perform her own BADLs, manage Living and IADL's medications, light housework, and driving. Pt has family near by who brings her meals. Social History Household Members none Living Arrangements House Number of Floors ( 3 or More Floors Floors) Number of Stairs To Pt reports that main floor living is possible, but that Enter/Railing? she prefers to shower upstairs. She has 3 steps to enter from outside with R railing. She reports 12 steps between flights with B rails. Home Environment Standard Height Toilet,Walk in Shower Home Equipment Straight Cane,Grab Bars Near Toilet Employment Status Retired M2 PT-IP Current Condition Start: 08/26/25 15:29 Freq: NEEDED Status: Active Protocol: Document 08/26/25 15:30 MB (Rec: 08/26/25 15:41 MB Desktop) Physical Therapy Current Condition Current Condition Evaluation Date 08/26/25 Treatment Diagnosis GLF, UTI, FTT, rhabdo M3 PT-IP Subjective Start: 08/26/25 15:29 Freq: NEEDED Status: Active Protocol: Document 08/26/25 15:30 MB (Rec: 08/26/25 15:41 MB Desktop) Subjective Physical Therapy Visit Type Type Initial Evaluation Visit Start Time 15:03 Visit Stop Time 15:30 Number of SENIOR HADOOP DEVELOPER Visits 0 Physical Therapy Visit Comments Patient Comments Pt is hypoverbal but does try to answer questions and follow commands Therapy Pain Assessment Pain When Pain Assessed At Rest Pain Present Pain Present Pain Reported Location R knee Scale Used Not rated M4 PT-IP Mobility and Gait Start: 08/26/25 15:29 Freq: NEEDED Status: Active Protocol: Document 08/26/25 15:30 MB (Rec: 08/26/25 15:41 MB Desktop) PT-Bed Mobility Assessment Rolling Type of Rolling Roll to Left Level of Assist Maximal Assistance,1 Person Assistance Supine to Sit Supine to Sit Maximum Assistance,1 Person Assistance,Head of Bed Elevated,Bedrails Scooting Scooting to Edge of Dependent Bed PT-Transfer Assessment Sit to and From Stand Sit to and from Maximum Assistance,1 Person Assistance,Use of Upper Stand Extremities Equipment Transfer Assistive Gait Belt,Front Wheeled Walker Device Orthotic/Prosthetic No Devices or Brace: Transfers Transfer Destination Chair Transfer Technique Stand Pivot Transfer Ability Level of Assist Maximum Assistance,2 Person Assistance,Use of Upper Extremities Comments Mobility Comments Pt attempts to move right leg to the right with gait belt to get to EOB but this takes 10' and then finally PT must assist pt for all mobility: she cannot follow commands to shift weight and use bed rail, dependent with pad to scoot hips to EOB, severe posterior lean and does not move right leg for SPT to the left Gait Assessment Comments Gait Comments Unable to take a step today PT-Balance Assessment Sitting Balance and Reactions Static Sitting Fair Balance Ability Dynamic Sitting Poor Balance Ability Standing Balance and Reactions Static Standing Poor Balance Ability Dynamic Standing Poor Balance Ability Comments Other Balance Tests/ Sacral sitting for static sitting balance EOB Deviations/Treatment : M5 PT-IP Objective Assessments Start: 08/26/25 15:29 Freq: NEEDED Status: Active Protocol: Document 08/26/25 15:30 MB (Rec: 08/26/25 15:41 MB Desktop) Orientation Orientation/Cognition Level of Alertness Confusional State Orientation Name,Birthday,Place Safety Awareness Decreased Safety Awareness Memory Description Short Term Impaired,Half-Way Impaired Gross Range of Motion Upper Extremity ROM Impairments Defer to OT eval Lower Extremity ROM Assessment Bilaterally Impaired Impairments Cannot follow commands, functionally weak B, right knee is large/arthritic and painful Strength Lower Extremity Strength Assessment Bilaterally Impaired Comments Strength Comments Does not follow commands Coordination Assessment Assessment Coordination Does not follow commands Comments Sensation Assessment Comments Sensation Comments Does not follow commands Muscle Tone Muscle Tone WNL Yes M6 PT-IP Treatment Start: 08/26/25 15:29 Freq: NEEDED Status: Active Protocol: Document 08/26/25 15:30 MB (Rec: 08/26/25 15:41 MB Desktop) Physical Therapy Treatment Education Education Provided Safety M7 PT-IP Assessment and Plan Start: 08/26/25 15:29 Freq: NEEDED Status: Active Protocol: Document 08/26/25 15:30 MB (Rec: 08/26/25 15:41 MB Desktop) PT Summary Assessment and Plan Potential Rehabilitation Fair Potential Status of Condition Evolving at Evaluation Summary Impairments Pain,ROM,Strength,Balance,Coordination,Cognition,Bed Mobility,Transfers,Gait,Activity Tolerance Assessment Summary Pt is a 74 y/o female adm from home alone on [facility]. She was adm with UTI, fall and FTT after fall and down possibly a day or two and with rhabdo. Pt presents with confusion and bradykinesia this afternoon. She has trouble following 1-step simple commands and requires + 1-2 max to dependent assistance to get to the EOB and up to the chair. She will benefit from SNF at d/c. Possible Lewy Body Dementia and her mobility today appears somewhat neurologically degenerative in nature. Strength and cognition may improve as UTI and rhabdo clear up. Goals Bed Mobility Goal Independent Transfer Goal Standby Assistance,Cane,Front Wheeled Walker Gait Goal Standby Assistance,Cane,Front Wheel Walker Gait Distance 100 Other Goals Pt will ascend and descend 3 steps with B rails to allow safe home entrance. Days to Meet Goals 5 Frequency of Treatment Frequency Of Once a Day Treatment Treatment Plan Physical Therapy Bed Mobility Training,Transfer Training,Gait Training, Treatment Plan Therapeutic Exercise,Balance Retraining,Discharge Planning,Hot or Cold Pack,Neuromuscular Re-ed, Coordination Retraining,Manual Therapy Recommendations To Nursing Amount of Assist Mechanical Lift Needed Discharge Recommendations PT Discharge SNF Rehab Recommendations Transportation Needs Wheelchair/Cabulance at Discharge - PT assist x2
[2025-08-27] VITALS (8 sets, daily range): BP systolic 84–108; BP diastolic 52–71; PULSE 60–95; RESP 16–18; TEMP 36.2–36.7; O2SAT 94–98
--- NOTE | 2025-08-27 07:48 | PM.PN.1 ---
Subjective Subjective Interval history: S: She was doing well, but does note that she did have a dream last night where she kept waking up and look in the clock and it remained 8:00 p.m.. She was have chronic right knee swelling and pain and is open to a Voltaren gel trial. O: NAD, alert and oriented. Fluent speech. Lungs are clear, normal rate and effort. Heart is regular, no murmur gallop or rub. Abdomen is soft, non distended. Extremities are free of edema. Right knee is relatively nontender no redness or warmth is noted. IMAGIN. Head CT 08/24/2025: No acute intracranial pathology. Acute bilateral maxillary sinusitis. 2. Chest/abdomen/pelvis CT 08/24/2025: No evidence of traumatic injury to the chest, abdomen or pelvis. 3. Cervical spine CT 08/24/2025: No displaced fracture or traumatic subluxation. 4. Chest x-ray 08/24/2025: No acute cardiopulmonary abnormality is seen. 5. Brain MRI 05/01/2025: Mild microvascular atherosclerotic change scattered within the deep white matter of each hemisphere. No chronic or subacute ischemic injury is found. 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 No adjacent cerebellar edema is associated. The adjacent cranial nerves appear free of involvement but are positioned in close proximity to the anterior border of this meningeal mass. Neurosurgical consultation is recommended. 6. Echocardiogram 05/01/2025: 1) Moderately dilated left ventricle with moderately to severely reduced function (EF 30-35%). 2) Mildly enlarged right ventricle with normal function. 3) The left atrium is severely dilated. 4) There is mild to moderate mitral regurgitation. There is mild to moderate tricuspid regurgitation. 5) Compared to the Echo done 04/17/2023, no significant change. A/P: 1. Ground level fall with left elbow abrasion and rhabdomyolysis. 2. Probable urinary tract infection in a patient with chronic recurrent urinary tract infections. 3. Acute kidney injury due to 1 and 2. 3. Probable Lewy body dementia. 4. Chronic systolic congestive heart failure (EF 30%). 5. Chronic atrial fibrillation. 6. Chronic anticoagulation with supra therapeutic INR. 7. Hypertension. 8. Hyperlipidemia. 9. History of AAA, status post repair. 10. Chronic right knee swelling and pain. PLAN: -discontinued IV fluids 08/26. -ongoing therapies assessment for discharge planning. SNF anticipated. -resume lisinopril, spironolactone, Celebrex, and furosemide. -Hold warfarin per pharmacy, INR 3.9 08/26. Recheck on August 28. -Voltaren trial to right knee. TANVI: 08/28 SNF. 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 Osteomyelitis (~2012) Post-menopausal osteoporosis Postoperative confusion Uncompensated short term memory deficit Urinary urgency Surgical History History of AAA (abdominal aortic aneurysm) repair Hx of hysterectomy (Unknown) Social History household members: none Smoking Status: Former smoker second hand exposure: No alcohol intake: current substance use type: does not use Assessment & Plan Time-Based Coding :: [TOTAL MINUTES] spent with patient and on the chart (including review of chart, obtaining history, exam, reviewing outside data, placing orders, documenting exam and treatment plan, and counseling patient) on [DATE].
[2025-08-27] MEDS: METOPROLOL ER 50 MG TABLET 100 MG PO (08:57)
[2025-08-27] MEDS: MAGNESIUM OXIDE 400 MG TABLET PO (08:57)
[2025-08-27] MEDS: SODIUM CHLORIDE 0.9% FLUSH 10 ML IV ×2 (09:14→20:15)
--- NOTE | 2025-08-27 11:10 | CM.DPNOTE ---
DCP Note MANUFACTURING LABORER reviewed EMR per Jocelyn from , can last picker pt tomorrow between 11am-1130am. Anuradha kindly sent updated clinicals. MANUFACTURING LABORER met with pt in room, updated on plan. in agreement. updated white board. P: dc tomorrow to at 11am. CM team will continue to follow closely for DCP Coordination TYE Brar
[2025-08-27] MEDS: SPIRONOLACTONE 25 MG TABLET PO (13:13)
[2025-08-27] MEDS: FUROSEMIDE 20 MG TABLET PO (13:14)
[2025-08-27] MEDS: DICLOFENAC 1% GEL 100 GM 1 APPLIC TOP ×3 (14:45→20:07)
--- NOTE | 2025-08-27 16:00 | OT.IP.TRT ---
Current Diagnoses Traumatic ischemia of muscle, initial encounter (08/25/25) Unspecified fall, initial encounter (08/25/25) Occupational Therapy Treatment Note M2 OT-IP Current Condition Start: 08/25/25 13:19 Freq: Status: Active Protocol: Document 08/25/25 13:19 JOE (Rec: 08/25/25 13:45 [facility] Desktop) Occupational Therapy Current Condition Current Condition Evaluation Date 08/25/25 Treatment Diagnosis s/p GLF, UTI, decreased self care Diagnosis Onset Date 08/24/25 M3 OT- IP Subjective and Pain Start: 08/25/25 13:19 Freq: Status: Active Protocol: Document 08/27/25 16:05 CCC (Rec: 08/27/25 16:24 [facility] Desktop) OT- Subjective Occupational Therapy Visit Type Type Treatment Note Visit Start Time 15:30 Visit Stop Time 16:00 Occupational Therapy Visit Comments Patient Comments Pt agreed to try to work on bed mobilty. Patient/Caregiver To get better and be able to care for herself. Goals OT Pain Assessment Pain When Pain Assessed At Rest Pain Present Pain Present Pain Reported Location Right Knee Pain Behaviors Facial Grimacing,Holding Area M4 OT- IP ADL's Start: 08/25/25 13:19 Freq: Status: Active Protocol: Document 08/25/25 13:19 JOE (Rec: 08/25/25 13:45 JOE Desktop) OT DWP-Bztz-Wsamibb General Evaluation Self-Feeding Ability Standby Assistance Areas Needing Opening Containers Assistance OT ADL-Grooming General Evaluation Grooming Ability Standby Assistance Comments OT Grooming Comments Pt is able to wash hands on setup OT ADL-Oral Care Comments Oral Care Comments not observed OT ADL-Dressing General Eval Lower Body Dressing Total Assistance Ability Comments OT Dressing Comments Pt unable to assist with socks or brief OT ADL-Toileting General Evaluation Toileting Ability Total Assistance Comments OT Toileting Pt is dependent on pure wick and brief. She reports Comments recent incontinence at home. OT ADL-Bathing Comments OT Bathing Comments not observed, sponge bath would be best at this time. M5 OT- IP IADL's Start: 08/25/25 13:19 Freq: Status: Active Protocol: Document 08/25/25 13:19 JOE (Rec: 08/25/25 13:45 [facility]) OT-Instrumental Activities of Daily Living Deficits IADL Deficits Deficits Identified Home Safety Awareness Awareness of Need Decreased Awareness for Assistance at Home Ability to Problem Unable to Problem Solve Solve Emergency Situations Home Safety Comments Pt believes she is safe to return home in her current status. OT reminded pt of the amount of assistance she required to get out of bed and asked if she would be able to do that on her own. Pt agreed that she could not. OT stresses the safety concern about not being able to manage yourself in your home and gave the example of needing to get out of the house in case of a fire. Medication Management Medication Pt reports she administers. Pt would benefit from Management Comments further safety at performing this task. Money Management Money Management may need supervision. Comments Meal Preparation Meal Preparation Caregiver Provides Assist Plasma Processing Centrifuge Operator Plasma Processing Centrifuge Operator will need assist Comments Driving Driving Comments pt reports she drives, likely needs assist M6 OT- IP Functional Cognition Start: 08/25/25 13:19 Freq: Status: Active Protocol: Document 08/27/25 16:05 [facility] (Rec: 08/27/25 16:24 [facility] Desktop) Cognitive Factors Limiting Selfcare Function Cognitive Ability Level of Alertness Alert,Confusional State Cognitive Comments Cognitive Assessment Pt more alert but still having having difficulty to Comments initiate her movements. M7 OT- IP Mobility and Balance Start: 08/25/25 13:19 Freq: Status: Active Protocol: Document 08/27/25 16:05 [facility] (Rec: 08/27/25 16:24 [facility] Desktop) OT- Bed Mobility Assessment Supine to Sit Supine to Sit Assist Minimal Assistance Scooting Scooting to Edge of Moderate Assistance Bed OT-Transfer Assessment Sit to and From Stand Sit to and from Minimal Assistance Stand Comments Mobility Comments SAI with RLE management to get to the edge of the bed. SAI to stand with heavy use of the bed on the back of her legs to stand to the FWW. Pt not able to move her feet once up and needing assist for weight shifting and cues to push down on the FWW to unweight her feet. Pt able to take tiny steps up to the head of the bed. MAX A to help get back into bed. OT- Balance Assessment Sitting Balance and Reactions Static Sitting Good Balance Ability Dynamic Sitting Fair Balance Ability Standing Balance and Reactions Static Standing Poor Balance Ability Dynamic Standing Poor Balance Ability M8 OT- IP Objective Assessments Start: 08/25/25 13:19 Freq: Status: Active Protocol: Document 08/25/25 13:19 JOE (Rec: 08/25/25 13:45 [facility] Desktop) OT Gross Range of Motion Upper Extremity Range of Motion Assessment Bilaterally Impaired ROM Impairments B shoulders ~120-140 degrees of scaption OT Strength Upper Extremity Strength Assessment Bilaterally Impaired Hand Paradichlorobenzene Tender Strength Hand Dominance Right Comments Strength Comments B UEs grossly 4- to 4 from proximal to distal OT- Coordination Assessment Comments Coordination thumb to fingertips intact Comments OT-Muscle Tone Assessment Muscle Tone WNL Yes OT Sensation Assessment Edema Edema Absent M9 OT- IP Assessment and Plan Start: 08/25/25 13:19 Freq: Status: Active Protocol: Document 08/27/25 16:05 [facility] (Rec: 08/27/25 16:24 [facility] Desktop) OT Summary Assessment and Plan Potential Rehabilitation Good Potential Analytic Complexity Moderate at Evaluation Summary OT Impairments Range of Motion,Strength,Balance,Functional Cognition, Functional Mobility,Self-Feeding,Grooming,Dressing, Toileting,Bathing,Toilet Transfers,Shower Transfers, Activity Tolerance Progress Towards Progressing Toward Goals,Slow Progress due to Pain,Slow Goals Progress due to Medical Issues,Slow Progress due to Activity Tolerance,Slow Progress due to Cognition Assessment Summary Pt able to get to the edge of bed with assist for her RLE. SAI to stand and decreased initiation and ability to move her feet with the FWW. Pt to go to skilled rehab when medically stable. Educated pt on exercises to do in bed for her core, BUE, and BLE. Goals Self-Feeding Goal Independent Grooming Goal Standby Assistance Dressing Goal Standby Assistance Toileting Goal Standby Assistance Bathing Goal Standby Assistance Toilet Transfer Goal Standby Assistance,Grab Bars Shower Transfer Goal Standby Assistance Days to Meet Goals 24 Frequency of Treatment Other frequency 5x/week Treatment Plan OT Treatment Plan ADL Training,Functional Cognition Training,Functional Mobility,Therapeutic Exercises,Patient/Family Education ,Discharge Planning Discharge Recommendations OT Discharge SNF Rehab Recommendations Home Equipment Needs shower chair Transportation Needs Wheelchair/Cabulance at Discharge
[2025-08-27] MEDS: levoFLOXacin 500 MG/100 ML PIGGYBACK 100 MG IV (17:03)
[2025-08-27] MEDS: CARBOXYMETHYLCELLULOSE DROPS 1 DROPS EYE-BOTH (20:08)
[2025-08-28] VITALS: BP 94/61; PULSE 69; RESP 16; TEMP 36.1; O2SAT 93
[2025-08-28 05:00] VITALS: BP 100/71; PULSE 81; RESP 16; TEMP 36.4; O2SAT 98
[2025-08-28 06:11] LABS: INR 2.0 (0.9-1.3); Prothrombin Time 22.7 SECONDS (9.4-12.5)
[2025-08-28 06:14] LABS: Add Manual Diff / Slide Review NO; Hematocrit 43.4 % (36-46); Hemoglobin 14.8 g/dL (12.0-16.0); Lymphocytes Absolute Auto 1300 /uL (1100-4500); Mean Corpuscular HGB Conc 34.1 % (30-36); Mean Corpuscular Hemoglobin 31.8 PG (26-34); Mean Corpuscular Volume 93.1 fL (80-100); Platelet Count 157 X10^3/uL (150-400)
[2025-08-28 06:22] LABS: Blood Urea Nitrogen 24 mg/dL (7-17); Calcium 9.0 mg/dL (8.4-10.2); Carbon Dioxide 24 mmol/L (22-32); Chloride 101 mmol/L (98-107); Estimated Glomerular Filt Rate > 60 mL/min (>60); Glucose 109 mg/dL (70-99); HEMOLYSIS 22 (0-50); Potassium 4.4 mmol/L (3.4-5.1); Sodium 132 mmol/L (137-145)
[2025-08-28 08:00] VITALS: BP 97/72; PULSE 82; RESP 20; TEMP 35.9; O2SAT 94
[2025-08-28] MEDS: MAGNESIUM OXIDE 400 MG TABLET PO (08:17)
[2025-08-28] MEDS: SPIRONOLACTONE 25 MG TABLET PO (08:17)
[2025-08-28] MEDS: FUROSEMIDE 20 MG TABLET PO (08:17)
[2025-08-28 08:23] VITALS: BP 97/72; PULSE 82
[2025-08-28] MEDS: SODIUM CHLORIDE 0.9% FLUSH 10 ML IV (08:26)
[2025-08-28 08:27] VITALS: BP 97/72; PULSE 82
--- NOTE | 2025-08-28 08:39 | PM.DS.1 ---
History of Present Illness History of Present Illness Chief complaint: Fall Narrative: From H&P: 74-year-old woman under the primary care of Dr. Damaris Alejandre states that 2 nights ago she fell while moving a box of kindling. She lives alone on [address] [facility] [address] [facility] and has recently been undergoing evaluation for possible Lewy body dementia, with skin biopsy for synuclein ordered but not yet done, and she has not started carbidopa levodopa yet as prescribed by her neurologist Dr. Tanya Washington. She is interviewed with her daughter Ashely who notes that they were trying to get through to her but unable, and the patient states that she was unable to get to her phone and call, and was down on the ground for at least 1 night and likely to. She has visual hallucinations involving animals, often do animals, but denies any paranoia or fearfulness. She was brought by paramedics to the emergency department for further evaluation and found to have rhabdomyolysis with CPK over 18,000 and a left elbow abrasion. She is admitted for further management and evaluation. Discharge Providers Provider Date of admission: 08/25/25 13:01 Discharge Date: 08/28/25 Primary care physician: Damaris Haney MD Consults: 08/24/25 15:04 Consult to [facility] [place] - Surgery Scheduling Coordinator Stat Comment: Surgery Scheduling Coordinator Consult needed for:: Lives alone 08/24/25 16:10 Consult to Physical Therapy Evaluate & Treat Comment: Physician Instructions: Evaluate and Treat 08/25/25 10:25 Consult to Occupational Therapy Evaluate & Treat Comment: Physician Instructions: Evaluate and treat 08/26/25 20:55 Consult to Pharmacy Routine Comment: Hx of falls Discharge provider: Rodger Tom MD Summary Hospital Course Discharge Diagnosis: 1. Ground level fall with left elbow abrasion and rhabdomyolysis. 2. Probable urinary tract infection in a patient with chronic recurrent urinary tract infections. 3. Acute kidney injury due to 1 and 2. 3. Probable Lewy body dementia. 4. Chronic systolic congestive heart failure (EF 30%). 5. Chronic atrial fibrillation. 6. Chronic anticoagulation with supra therapeutic INR. 7. Hypertension. 8. Hyperlipidemia. 9. History of AAA, status post repair. 10. Chronic right knee swelling and pain. Hospital Course: She was admitted to the hospital and treated with IV fluids and IV antibiotics. Cultures did grow out E coli, sensitive fluoroquinolones. She would allergies to sulfa, cephalexin, and penicillin. She improved with IV fluids and IV antibiotics but remained debilitated. She was felt to be requiring a [facility]entiary facility rehabilitation. CALLI improved with IVF. She did have borderline low blood pressures and her beta blockade was decreased to 25 daily. She will continue on lisinopril at a low dose of 2.5 daily and her Lasix will be held at the time of discharge. She will need to be monitored closely, she may require reinstitution of Lasix if she was volume issues. An echo was repeated here and confirms stability of her EF at 30%. She did have a supratherapeutic INR, her warfarin was held the entire time she was in the hospital until the day of discharge. Her warfarin had returned back to INR of 2.1 and she was given 3 mg in the day of discharge. Status at Discharge Cognitive/behavioral status at discharge: at baseline, confused Functional status at discharge: uses cane/walker Overall status at discharge: patient is progressing back to baseline Time Spent with Patient Time spent: Greater than 30 minutes Exam Vital Signs (past 8 hours): - 08/28/25 05:00 08/28/25 08:00 08/28/25 08:23 Temperature 97.5 F L 96.7 F L Pulse Rate 81 82 82 Respiratory Rate 16 20 Blood Pressure 100/71 97/72 97/72 Pulse Oximetry 98 94 Oxygen Flow Rate 0 0 08/28/25 08:27 Temperature Pulse Rate 82 Respiratory Rate Blood Pressure 97/72 Pulse Oximetry Oxygen Flow Rate Oxygen Delivery Method Room Air Oxygen Flow Rate 0 Narrative Exam Narrative: NAD, alert and oriented. Fluent speech. Lungs are clear, normal rate and effort. Heart is regular, no murmur gallop or rub. Abdomen is soft, non distended. Extremities are free of edema. Objective Imaging Multiple studies: : Radiologist's impression: 1. Head CT 08/24/2025: No acute intracranial pathology. Acute bilateral maxillary sinusitis. 2. Chest/abdomen/pelvis CT 08/24/2025: No evidence of traumatic injury to the chest, abdomen or pelvis. 3. Cervical spine CT 08/24/2025: No displaced fracture or traumatic subluxation. 4. Chest x-ray 08/24/2025: No acute cardiopulmonary abnormality is seen. 5. Brain MRI 05/01/2025: Mild microvascular atherosclerotic change scattered within the deep white matter of each hemisphere. No chronic or subacute ischemic injury is found. 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 No adjacent cerebellar edema is associated. The adjacent cranial nerves appear free of involvement but are positioned in close proximity to the anterior border of this meningeal mass. Neurosurgical consultation is recommended. 6. Echocardiogram 05/01/2025: 1) Moderately dilated left ventricle with moderately to severely reduced function (EF 30-35%). 2) Mildly enlarged right ventricle with normal function. 3) The left atrium is severely dilated. 4) There is mild to moderate mitral regurgitation. There is mild to moderate tricuspid regurgitation. 5) Compared to the Echo done 04/17/2023, no significant change. Labs 08/28/25 04:20 08/28/25 04:20 Labs: Laboratory Results - last 24 hr 08/28/25 04:20 WBC 7.3 RBC 4.65 Hgb 14.8 Hct 43.4 MCV 93.1 MCH 31.8 MCHC 34.1 RDW 13.7 Plt Count 157 Neut % (Auto) 69.1 Lymph % (Auto) 17.4 L Cook % (Auto) 12.5 Eos % (Auto) 0.4 L Baso % (Auto) 0.6 Neut # (Auto) 5000 Lymph # (Auto) 1300 Cook # (Auto) 900 Eos # (Auto) 0 Baso # (Auto) 0 PT 22.7 H D INR 2.0 H Sodium 132 L Potassium 4.4 Chloride 101 Carbon Dioxide 24 BUN 24 H Creatinine 0.91 Estimated GFR > 60 BUN/Creatinine Ratio 26.4 H Glucose 109 H Calcium 9.0 PFSH Medical History Uncompensated short term memory deficit Cerebral microvascular disease Postoperative confusion AAA (abdominal aortic aneurysm) Lichen planus-like keratosis (LPLK) Elevated LFTs Post-menopausal osteoporosis Urinary urgency Diastolic congestive heart failure residential current use of anticoagulant therapy A-fib Osteomyelitis (~2012) Diverticulosis of colon (Unknown) Colon polyps (Unknown) Back pain (10/2012) Surgical History History of AAA (abdominal aortic aneurysm) repair Hx of hysterectomy (Unknown) Social History household members: none Smoking Status: Former smoker second hand exposure: No alcohol intake: current substance use type: does not use Discharge Assessment & Plan Assessment and Plan Assessment: 1. GLF 2. Rhabdo 3. UTI 4. CALLI 5. Warfarin induced coagulopathy. Plan of Treatment: [facility]charge to [facility] for rehabilitative efforts. We will continue to additional days of Cipro. Her warfarin will be reinstituted at 3 mg a day which is a decreased overall dose and she will require a protime and a proximally 3-4 days. Discharge Plan Discharge Plan Patient Disposition: SNF Transfer to: [facility] Under care of provider: Facility provider. Provider Discharge Comment: Stable for discharge to rehabilitation. Discharge orders & Medications Prescriptions: New carbidopa-levodopa [Sinemet] 25-100 mg tablet 1 tab PO TID Qty: 90 0RF metoprolol succinate 25 mg capsule,sprinkle,ER 24hr 25 mg PO DAILY Qty: 30 0RF lisinopril 2.5 mg tablet 2.5 mg PO DAILY Qty: 30 0RF ciprofloxacin HCl [Cipro] 500 mg tablet 500 mg PO BID Qty: 4 0RF Continued estradiol 0.01 % (0.1 mg/gram) cream 1 appful vaginal 2XW Qty: 42.5 1RF Rx Instructions: twice weekly (DME) Disabled parking permit Qty: 1 0RF Dose Instruction: As directed Rx Instructions: As directed magnesium oxide 400 mg (241.3 mg magnesium) tablet See Rx Instructions .ROUTE .COMPLEX Qty: 90 3RF Dose Instruction: TAKE 1 TABLET BY MOUTH DAILY Rx Instructions: TAKE 1 TABLET BY MOUTH DAILY Disabled Parking Permit See Rx Instructions .ROUTE .COMPLEX Qty: 1 0RF Rx Instructions: I find this patient to be medically disabled and qualify for disabled parking as indicated and signed on the accompanying disabled parking application for individuals. spironolactone 25 mg tablet See Rx Instructions .ROUTE .COMPLEX Qty: 45 3RF Dose Instruction: TAKE HALF A TABLET BY MOUTH DAILY Rx Instructions: Take 1 tab by mouth every other day Changed warfarin 3 mg tablet 3 mg PO DAILY Qty: 60 3RF Protocol: Dose Management Condition: Monday (Week One) Dose/Route: 3 mg Instruction: 1 x 3 mg tablet Condition: Monday Dose/Route: 3 mg Instruction: 1 x 3 mg tablet Condition: Monday Dose/Route: 5 mg Instruction: 1 x 5 mg tablet Condition: Monday Dose/Route: 3 mg Instruction: 1 x 3 mg tablet Condition: Dose/Route: Hold Instruction: No doses Condition: Monday Dose/Route: 3 mg Instruction: 1 x 3 mg tablet Condition: Monday Dose/Route: 3 mg Instruction: 1 x 3 mg tablet Condition: Monday ( Two) Dose/Route: 3 mg Instruction: 1 x 3 mg tablet Condition: Monday Dose/Route: 3 mg Instruction: 1 x 3 mg tablet Condition: Monday Dose/Route: 5 mg Instruction: 1 x 5 mg tablet Condition: Monday Dose/Route: 3 mg Instruction: 1 x 3 mg tablet Condition: Dose/Route: 5 mg Instruction: 1 x 5 mg tablet Condition: Monday Dose/Route: 3 mg Instruction: 1 x 3 mg tablet Condition: Monday Dose/Route: 3 mg Instruction: 1 x 3 mg tablet Protocol Text: Adjustment Start Date: 08/14/25 INR Value: 3.7 INR Date: 08/14/25 Recheck Date: 08/28/25 Rx Instructions: Take 1 tablet (3 mg) orally every Monday, Monday, Monday, Monday and Monday; or as directed. Discontinued carbidopa-levodopa 25-100 mg tablet 1 tab PO TID Patient Comments: Take 1/2 tablet TID for 1 week then increase to 1 tablet TID lisinopril 2.5 mg tablet See Rx Instructions .ROUTE .COMPLEX Qty: 90 3RF Dose Instruction: TAKE 1 TABLET BY MOUTH DAILY Rx Instructions: TAKE 1 TABLET BY MOUTH DAILY furosemide 20 mg tablet See Rx Instructions .ROUTE .COMPLEX Qty: 90 3RF Dose Instruction: TAKE 1 TABLET BY MOUTH DAILY Rx Instructions: TAKE 1 TABLET BY MOUTH DAILY warfarin 5 mg tablet 5 mg PO QTUTH Qty: 30 3RF Protocol: Dose Management Condition: Monday (Week One) Dose/Route: 3 mg Instruction: 1 x 3 mg tablet Condition: Monday Dose/Route: 3 mg Instruction: 1 x 3 mg tablet Condition: Monday Dose/Route: 5 mg Instruction: 1 x 5 mg tablet Condition: Monday Dose/Route: 3 mg Instruction: 1 x 3 mg tablet Condition: Dose/Route: Hold Instruction: No doses Condition: Monday Dose/Route: 3 mg Instruction: 1 x 3 mg tablet Condition: Monday Dose/Route: 3 mg Instruction: 1 x 3 mg tablet Condition: Monday (Week Two) Dose/Route: 3 mg Instruction: 1 x 3 mg tablet Condition: Monday Dose/Route: 3 mg Instruction: 1 x 3 mg tablet Condition: Monday Dose/Route: 5 mg Instruction: 1 x 5 mg tablet Condition: Monday Dose/Route: 3 mg Instruction: 1 x 3 mg tablet Condition: Dose/Route: 5 mg Instruction: 1 x 5 mg tablet Condition: Monday Dose/Route: 3 mg Instruction: 1 x 3 mg tablet Condition: Monday Dose/Route: 3 mg Instruction: 1 x 3 mg tablet Protocol Text: Adjustment Start Date: 08/14/25 INR Value: 3.7 INR Date: 08/14/25 Recheck Date: 08/28/25 Rx Instructions: Take 1 tablet (5mg) orally every Monday and ; or as directed. metoprolol succinate 100 mg tablet extended release 24 hr 100 mg PO BID Qty: 180 3RF Rx Instructions: Take 1 tab by mouth twice per day for heart rate celecoxib [Celebrex] 200 mg capsule 200 mg PO BID Medication counseling provided by Pharmacist: No Follow up/Referrals: Damaris Haney MD [Primary Care Provider, Family Practice] Discharge Health Status Multidrug resistant organism: No MDRO Diet/Activity/Treatments Diet: Regular Special Rehabilitation Services Reason for rehabilitation: Recovery r/t decondition Rehab type: Physical therapy and Occupational therapy Visit Report/Discharge Packet Stand Alone Forms: Patient Portal/API Discharge Data Primary Care Provider: Damaris Haney
--- NOTE | 2025-08-28 09:01 | CM.DPC ---
DCP Discharge to SNF Per MD, pt remains stable for discharge to SNF today and d/c orders placed and packet completed. JATIN called new [facility] and left msg regarding time for transport today around [phone] and she plans to be bedside prior to d/c. JATIN secure emailed PASRR, signed med list, scripts, orders, dc summary to [facility] to review. Updated sewing machine operator floorperson, REVIEW NURSE, and RN and provided number to call report. Plan: Patient to d/c to [facility] today via facility van around 1100 before safe return home with friend support. Marilu Servin MSW
[2025-08-28] MEDS: WARFARIN 1 MG TABLET 3 MG PO (09:54)
[2025-08-28] MEDS: DICLOFENAC 1% GEL 100 GM 1 APPLIC TOP (09:54)
--- NOTE | 2025-08-28 11:46 | PC.NURSE ---
Day shift: Left unit at approx 1140 via WC with SNF person. Headed to [facility] across the street. Friends and family aware of this as well. Pt has all personal belongings. SNF packet with transport person. Report was also given to SNF RN by this aligner typewriter.
== END 2025-08-28 11:40 | DRG 565 ==
LOC: ED 10:39 → AC 15:07
PROVIDERS: Hospitalist; Admitting Provider Internal Medicine; Emergency Provider Emergency Medicine; PCP Family Medicine; Referring Provider Emergency Medicine; Visit Provider Internal Medicine
DX: T79.6XXA Traumatic ischemia of muscle, initial encounter (principal); D68.9 Coagulation defect, unspecified; I48.20 Chronic atrial fibrillation, unspecified; N17.9 Acute kidney failure, unspecified; I50.22 Chronic systolic (congestive) heart failure; N39.0 Urinary tract infection, site not specified; S50.312A Abrasion of left elbow, initial encounter; G31.83 Neurocognitive disorder with Lewy bodies; F02.80 Dementia in other diseases classified elsewhere, unspecified severity, without behavioral disturbance, psychotic disturbance, mood disturbance, and anxiety; I11.0 Hypertensive heart disease with heart failure; E78.5 Hyperlipidemia, unspecified; R44.1 Visual hallucinations; M25.561 Pain in right knee; M25.461 Effusion, right knee; G89.29 Other chronic pain; B96.20 Unspecified Escherichia coli [E. coli] as the cause of diseases classified elsewhere; R03.1 Nonspecific low blood-pressure reading; R62.7 Adult failure to thrive; W18.30XA Fall on same level, unspecified, initial encounter; Z88.0 Allergy status to penicillin; Z88.2 Allergy status to sulfonamides; Z87.891 Personal history of nicotine dependence; Z79.01 Long term (current) use of anticoagulants; Z86.79 Personal history of other diseases of the circulatory system; Z87.440 Personal history of urinary (tract) infections; Z98.890 Other specified postprocedural states; Z68.27 Body mass index [BMI] 27.0-27.9, adult
CPT/HCPCS: 36415; 51798; 70450; 71045; 71275; 72125; 74177; 80048; 80053; 81003; 81015; 82550; 83735; 84443; 84484; 85025; 85027; 85610; 87077; 87086; 87186; 93005; 97129; 97161; 97166; 97530; 99284; G0378; A9270; J1956; J7050; Q9967

== ENCOUNTER → 2025-09-09 15:21 | Outpatient (CLI) | payer MEDICARE, SELFPAY ==
[2025-08-24 15:44] VITALS: BMI 26.6
--- NOTE | 2025-09-09 15:28 | DI.RAD.S_ITS ---
PROCEDURE: XR KNEE RT 3V INDICATIONS: right knee pain TECHNIQUE: 3 views of the knee were acquired. COMPARISON: [facility], , XR KNEE RT 3V, 08/23/2023, 12:42. FINDINGS: Bones: No fractures or dislocations. Moderate tricompartmental osteoarthritis is seen. No significant patellar subluxation. No suspicious bony lesions. Soft tissues: Large suprapatellar joint effusion. No suspicious soft tissue calcifications. IMPRESSION: Moderate tricompartmental osteoarthritis and large joint effusion. No acute fracture or dislocation. If indicated, CT or MRI of knee can be done for further evaluation. Dictated by: Adiel Eugene M.D. on 09/09/2025 at 17:58 Approved by: Adiel Eugene M.D. on 09/09/2025 at 17:59
== END ==
PROVIDERS: PCP Family Medicine; Referring Provider Family Medicine; Visit Provider Family Medicine
DX: M17.11 Unilateral primary osteoarthritis, right knee (principal); M25.461 Effusion, right knee; M25.561 Pain in right knee; R22.1 Localized swelling, mass and lump, neck
CPT/HCPCS: 73562